=== PATIENT | female | born 1980 | race Caucasian/White ===

== ENCOUNTER 2023-12-11 15:12 | Emergency (ER) | payer SELFPAY ==
[2023-12-11 15:16] VITALS: BP 116/81; PULSE 77; RESP 16; TEMP 36.7; O2SAT 100; BMI 32.9
--- NOTE | 2023-12-11 15:36 | ED_ITS ---
Documented by User: Nael Foley DO 12/12/23 06:06 HPI - Recheck/Abnormal Lab/Rx 2 General: Chief Complaint: Recheck/Abnormal Lab/Rx Stated Complaint: high blood sugar 544 Time Seen by Provider: 12/11/23 15:36 History of Present Illness: 43-year-old female presents emergency ro om with elevated blood sugars. Patient has known type 1 diabetes mellitus she is staying at a local drug [facility] alcohol rehab. Patient says her blood sugars were elevated last several days. She usually uses sliding scale but states it has not been very effective Related Data Allergies Allergy/AdvReac Type Severity Reaction Status Date / Time aripiprazole [From Abilify] Allergy ADR/ALGY-Pa Verified 12/11/23 15:22 lpitations butorphanol [From Stadol] Allergy ADR/ALGY-Pa Verified 12/11/23 15:23 lpitations prednisone Allergy Unknown Verified 12/11/23 15:23 Review of Systems 2 Const: Denies: fever(s) or chills Card: Denies: chest pain Resp: Denies: dyspnea GI: Denies: abdominal pain : Denies: dysuria, urinary frequency or urinary urgency Musc: Denies: neck pain or back pain Skin/Breast: Denies: rash PFSH ED 2 PFSH: Medical History (Updated 12/11/23 @ 18:02 by Pedro Self DO) Diabetes mellitus Physical Exam 2 Const: GENERAL APPEARANCE: cooperative ORIENTATION/CONSCIOUSNESS: Yes awake, Yes oriented to person, Yes oriented to place and Yes oriented to time HENMT: COMMON NORMALS: normocephalic, atraumatic and hearing grossly normal bilaterally HEAD & SCALP: normocephalic and atraumatic Resp: COMMON NORMALS: normal respiratory effort, No retractions, No use of accessory muscles and clear to auscultation bilaterally AUSCULTATION: clear to auscultation bilaterally Cardio: COMMON NORMALS: regular rate, regular rhythm and No murmurs present (Cardio) RATE: regular rate RHYTHM: regular rhythm GI: COMMON NORMALS: Soft to palpation and No hepatosplenomegaly present A USCULTATION: Yes normoactive bowel sounds PALPATION: Yes Soft to palpation, No Tenderness to palpation present (GI), No Guarding due to palpation present (GI) and Yes No hepatosplenomegaly present Extremity: COMMON NORMALS: normal to inspection, capillary refill normal, no clubbing, cyanosis or edema, no calf tenderness and no pedal edema Neuro: SENSORIUM/ORIENTATION: Yes oriented to person, Yes oriented to place and Yes oriented to time Skin: COMMON NORMALS: no rashes or lesions noted GENERAL SKIN EXAM: no rashes or lesions noted Course 2 Vital Signs: Vital signs: Vital Signs Temperature 98.1 F 12/11/23 15:16 Pulse Rate 73 12/11/23 18:00 Respiratory Rate 16 12/11/23 15:16 Blood Pressure 105/66 12/11/23 18:00 Pulse Oximetry 100 12/11/23 18:00 MDM - Recheck/Abnormal Lab/Rx Medical Decision Making Care signed out to Dr. Self at change of shift. See final notes for diagnosis and disposition. Patient checked out at shift change. Ketones are negative. Original blood sugar was 544. Pseudohyponatremia present, although it corrects. CBC is not remarkable. Anion gap is normal at 16.5. She feels improved. Blood sugars down the 150s after IV insulin and fluids. Her Dexcom does not seem to be reading appropriately. 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 She is prescribed a sliding scale to give exact parameters for insulin usage. She will return for any problems. Medical Records I reviewed the patient's medical records. Lab Data I reviewed the patient's lab results. 12/11/23 15:43 12/11/23 15:43 Laboratory Results WBC 7.30 10^3/uL (3.29-11.43) 12/11/23 15:43 RBC 3.93 10^6/uL (3.85-5.65) 12/11/23 15:43 Hgb 11.60 g/dL (11.27-16.99) 12/11/23 15:43 Hct 35.6 % (36-47) L 12/11/23 15:43 MCV 90.6 fl (85-98) 12/11/23 15:43 MCH 29.5 pg (27-33) 12/11/23 15:43 MCHC 32.6 g/dL (30-55) 12/11/23 15:43 RDW 13.6 % (12.1-15.1) 12/11/23 15:43 Plt Count 344 10^3/cmm (157-399) 12/11/23 15:43 MPV 8.7 fL (7.4-10.4) 12/11/23 15:43 Neut % (Auto) 54.0 % 12/11/23 15:43 Lymph % (Auto) 34.2 % 12/11/23 15:43 [place] % (Auto) 7.3 % 12/11/23 15:43 Eos % (Auto) 3.2 % 12/11/23 15:43 Baso % (Auto) 1.0 % 12/11/23 15:43 Neut # (Auto) 3.95 10^3/uL (1.8-7.7) 12/11/23 15:43 Lymph # (Auto) 2.5 10^3/uL (0.8-4.8) 12/11/23 15:43 [place] # (Auto) 0.5 10^3/uL (0.2-0.9) 12/11/23 15:43 Eos # (Auto) 0.2 10^3/uL (0.0-0.8) 12/11/23 15:43 Baso # (Auto) 0.1 10^3/uL (0.0-0.1) 12/11/23 15:43 Nucleated RBC % (auto) 0 % 12/11/23 15:43 Nucleated RBCs # 0.0 /100WBC 12/11/23 15:43 Specimen Type Venous 12/11/23 16:04 Sample Site Radial, left 12/11/23 16:04 ABG pH 7.32 (7.35-7.45) L 12/11/23 16:04 ABG pCO2 49.0 mmHg (35-45) H 12/11/23 16:04 ABG pO2 43.5 mmHg (80.0-100.0) L 12/11/23 16:04 ABG PO2/FiO2 Ratio 207 12/11/23 16:04 ABG HCO3 25.5 mmol/L (22-26) 12/11/23 16:04 ABG O2 Saturation 75.7 12/11/23 16:04 ABG Base Excess -1.0 mmol/L (-2.0-2.0) 12/11/23 16:04 Gilberto Test Pos 12/11/23 16:04 A-a O2 Gradient 6.1 mmHg (5-10) 12/11/23 16:04 Hematocrit 37.6 % (37-47) 12/11/23 16:04 Hgb O2 Saturation 73.6 % (95-100) L 12/11/23 16:04 Carboxyhemoglobin 2.2 %THgb (0.4-20.1) 12/11/23 16:04 Methemoglobin 0.6 % (0.4-1.5) 12/11/23 16:04 Total Hemoglobin 12.3 g/dL (12-16) 12/11/23 16:04 Sodium 133.0 mmol/L (131-143) 12/11/23 16:04 Potassium 4.4 mmol/L (3.5-5.0) 12/11/23 16:04 Glucose 501.0 mg/dL (70-115) H 12/11/23 16:04 Ionized Calcium 1.2 mmol/L (1.1-1.4) 12/11/23 16:04 O2 Delivery Device Room air 12/11/23 16:04 FiO2 21.0 % 12/11/23 16:04 Kiln Labourer ID Amh 12/11/23 16:04 Sodium 129 mmol/L (136-145) L 12/11/23 15:43 Potassium 4.5 mmol/L (3.5-5.1) 12/11/23 15:43 Chloride 93 mmol/L (98-107) L 12/11/23 15:43 Carbon Dioxide 24 mmol/L (22-29) 12/11/23 15:43 Anion Gap 16.5 (5-19) 12/11/23 15:43 BUN 28 mg/dL (6-20) H 12/11/23 15:43 Creatinine 0.8 mg/dL (0.5-0.9) 12/11/23 15:43 GFR Calculation 79.0 mL/min (90-130) L 12/11/23 15:43 Glucose 544 mg/dL (65-115) H* 12/11/23 15:43 POC Glucose 156 mg/dL (70-110) H 12/11/23 17:52 Calculated Osmolality 298 mOsm/kg (285-295) H 12/11/23 15:43 Calcium 8.5 mg/dL (8.5-10.5) 12/11/23 15:43 Total Bilirubin 0.2 mg/dL (0.15-1.2) 12/11/23 15:43 AST 13 U/L (0-32) 12/11/23 15:43 ALT 16 U/L (0-33) 12/11/23 15:43 Alkaline Phosphatase 107 U/L (35-105) H 12/11/23 15:43 Total Protein 7.1 g/dL (6.6-8.7) 12/11/23 15:43 Albumin 4.0 g/dL (3.5-5.2) 12/11/23 15:43 Globulin 3.1 g/dL (1.3-4.6) 12/11/23 15:43 Urine Color Yellow (Yellow) 12/11/23 15:30 Urine Appearance Clear (CLEAR) 12/11/23 15:30 Urine pH 6.0 (5-7) 12/11/23 15:30 Ur Specific [place] 1.016 (1.005-1.030) 12/11/23 15:30 Urine Protein Negative (Negative) 12/11/23 15:30 Urine Glucose (UA) 3+ (Normal) H 12/11/23 15:30 Urine Ketones Negative (Negative) 12/11/23 15:30 Urine Blood Negative (Negative) 12/11/23 15:30 Urine Nitrate Negative (Negative) 12/11/23 15:30 Urine Bilirubin Negative (Negative) 12/11/23 15:30 Urine Urobilinogen 0.2 mg/dL (Negative) 12/11/23 15:30 Ur Leukocyte Esterase Negative (Negative) 12/11/23 15:30 Urine RBC 0-2 /hpf (0-2) 12/11/23 15:30 Urine WBC 0-5 /hpf (0-5) 12/11/23 15:30 Ur Squamous Epith Cells 0-5 /hpf (0-5) 12/11/23 15:30 Amorphous Sediment Not Reportable 12/11/23 15:30 Urine Bacteria None seen /hpf (NONE) 12/11/23 15:30 Hyaline Casts 0-4 /lpf H 12/11/23 15:30 Serum Ketones Negative (Negative) 12/11/23 15:43 Discharge Plan Discharge Patient Disposition: Home Clinical Impression: Acute hyperglycemia Condition: Stable Discharge Orders: Discharge ED (Routine); Ordered 12/11/23 Ordered By: Pedro Self Patient Instructions: Diabetic Hyperglycemia (ED), Opioid Safety, Pain Management Activity Restrictions/Additional Instructions: You have been given/prescribed a specific sliding scale for insulin usage. This should help control your blood sugar more accurately. Use your test strips and fingersticks, until you are able to refill your Dexcom, and can assure yourself that your Dexcom and fingersticks are lining up in terms of blood sugar parameters. Return for inability control blood sugar, vomiting, lethargy, trouble breathing, any other concerning symptoms. Coding Level of Care Code ED Loom Fixer Supervisor for Chg Fwd Documented by User: Pedro Self DO 12/11/23 21:03 HPI - Recheck/Abnormal Lab/Rx 2 General: Chief Complaint: Recheck/Abnormal Lab/Rx Stated Complaint: high blood sugar 544 Time Seen by Provider: 12/11/23 15:36 Related Data Allergies Allergy/AdvReac Type Severity Reaction Status Date / Time aripiprazole [From Abilify] Allergy ADR/ALGY-Pa Verified 12/11/23 15:22 lpitations butorphanol [From Stadol] Allergy ADR/ALGY-Pa Verified 12/11/23 15:23 lpitations prednisone Allergy Unknown Verified 12/11/23 15:23 [facility] ED 2 [facility]: Medical History (Updated 12/11/23 @ 18:02 by Pedro Self DO) Diabetes mellitus Course 2 Vital Signs: Vital signs: Vital Signs Temperature 98.1 F 12/11/23 15:16 Pulse Rate 73 12/11/23 18:00 Respiratory Rate 16 12/11/23 15:16 Blood Pressure 105/66 12/11/23 18:00 Pulse Oximetry 100 12/11/23 18:00 MDM - Recheck/Abnormal Lab/Rx Medical Decision Making Patient checked out at shift change. Ketones are negative. Original blood sugar was 544. Pseudohyponatremia present, although it corrects. CBC is not remarkable. Anion gap is normal at 16.5. She feels improved. Blood sugars down the 150s after IV insulin and fluids. Her Dexcom does not seem to be reading appropriately. 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 She is prescribed a sliding scale to give exact parameters for insulin usage. She will return for any problems. Lab Data 12/11/23 15:43 12/11/23 15:43 Laboratory Results WBC 7.30 10^3/uL (3.29-11.43) 12/11/23 15:43 RBC 3.93 10^6/uL (3.85-5.65) 12/11/23 15:43 Hgb 11.60 g/dL (11.27-16.99) 12/11/23 15:43 Hct 35.6 % (36-47) L 12/11/23 15:43 MCV 90.6 fl (85-98) 12/11/23 15:43 MCH 29.5 pg (27-33) 12/11/23 15:43 MCHC 32.6 g/dL (30-55) 12/11/23 15:43 RDW 13.6 % (12.1-15.1) 12/11/23 15:43 Plt Count 344 10^3/cmm (157-399) 12/11/23 15:43 MPV 8.7 fL (7.4-10.4) 12/11/23 15:43 Neut % (Auto) 54.0 % 12/11/23 15:43 Lymph % (Auto) 34.2 % 12/11/23 15:43 [place] % (Auto) 7.3 % 12/11/23 15:43 Eos % (Auto) 3.2 % 12/11/23 15:43 Baso % (Auto) 1.0 % 12/11/23 15:43 Neut # (Auto) 3.95 10^3/uL (1.8-7.7) 12/11/23 15:43 Lymph # (Auto) 2.5 10^3/uL (0.8-4.8) 12/11/23 15:43 [place] # (Auto) 0.5 10^3/uL (0.2-0.9) 12/11/23 15:43 Eos # (Auto) 0.2 10^3/uL (0.0-0.8) 12/11/23 15:43 Baso # (Auto) 0.1 10^3/uL (0.0-0.1) 12/11/23 15:43 Nucleated RBC % (auto) 0 % 12/11/23 15:43 Nucleated RBCs # 0.0 /100WBC 12/11/23 15:43 Specimen Type Venous 12/11/23 16:04 Sample Site Radial, left 12/11/23 16:04 ABG pH 7.32 (7.35-7.45) L 12/11/23 16:04 ABG pCO2 49.0 mmHg (35-45) H 12/11/23 16:04 ABG pO2 43.5 mmHg (80.0-100.0) L 12/11/23 16:04 ABG PO2/FiO2 Ratio 207 12/11/23 16:04 ABG HCO3 25.5 mmol/L (22-26) 12/11/23 16:04 ABG O2 Saturation 75.7 12/11/23 16:04 ABG Base Excess -1.0 mmol/L (-2.0-2.0) 12/11/23 16:04 Gilberto Test Pos 12/11/23 16:04 A-a O2 Gradient 6.1 mmHg (5-10) 12/11/23 16:04 Hematocrit 37.6 % (37-47) 12/11/23 16:04 Hgb O2 Saturation 73.6 % (95-100) L 12/11/23 16:04 Carboxyhemoglobin 2.2 %THgb (0.4-20.1) 12/11/23 16:04 Methemoglobin 0.6 % (0.4-1.5) 12/11/23 16:04 Total Hemoglobin 12.3 g/dL (12-16) 12/11/23 16:04 Sodium 133.0 mmol/L (131-143) 12/11/23 16:04 Potassium 4.4 mmol/L (3.5-5.0) 12/11/23 16:04 Glucose 501.0 mg/dL (70-115) H 12/11/23 16:04 Ionized Calcium 1.2 mmol/L (1.1-1.4) 12/11/23 16:04 O2 Delivery Device Room air 12/11/23 16:04 FiO2 21.0 % 12/11/23 16:04 Kiln Labourer ID Amh 12/11/23 16:04 Sodium 129 mmol/L (136-145) L 12/11/23 15:43 Potassium 4.5 mmol/L (3.5-5.1) 12/11/23 15:43 Chloride 93 mmol/L (98-107) L 12/11/23 15:43 Carbon Dioxide 24 mmol/L (22-29) 12/11/23 15:43 Anion Gap 16.5 (5-19) 12/11/23 15:43 BUN 28 mg/dL (6-20) H 12/11/23 15:43 Creatinine 0.8 mg/dL (0.5-0.9) 12/11/23 15:43 GFR Calculation 79.0 mL/min (90-130) L 12/11/23 15:43 Glucose 544 mg/dL (65-115) H* 12/11/23 15:43 POC Glucose 156 mg/dL (70-110) H 12/11/23 17:52 Calculated Osmolality 298 mOsm/kg (285-295) H 12/11/23 15:43 Calcium 8.5 mg/dL (8.5-10.5) 12/11/23 15:43 Total Bilirubin 0.2 mg/dL (0.15-1.2) 12/11/23 15:43 AST 13 U/L (0-32) 12/11/23 15:43 ALT 16 U/L (0-33) 12/11/23 15:43 Alkaline Phosphatase 107 U/L (35-105) H 12/11/23 15:43 Total Protein 7.1 g/dL (6.6-8.7) 12/11/23 15:43 Albumin 4.0 g/dL (3.5-5.2) 12/11/23 15:43 Globulin 3.1 g/dL (1.3-4.6) 12/11/23 15:43 Urine Color Yellow (Yellow) 12/11/23 15:30 Urine Appearance Clear (CLEAR) 12/11/23 15:30 Urine pH 6.0 (5-7) 12/11/23 15:30 Ur Specific [place] 1.016 (1.005-1.030) 12/11/23 15:30 Urine Protein Negative (Negative) 12/11/23 15:30 Urine Glucose (UA) 3+ (Normal) H 12/11/23 15:30 Urine Ketones Negative (Negative) 12/11/23 15:30 Urine Blood Negative (Negative) 12/11/23 15:30 Urine Nitrate Negative (Negative) 12/11/23 15:30 Urine Bilirubin Negative (Negative) 12/11/23 15:30 Urine Urobilinogen 0.2 mg/dL (Negative) 12/11/23 15:30 Ur Leukocyte Esterase Negative (Negative) 12/11/23 15:30 Urine RBC 0-2 /hpf (0-2) 12/11/23 15:30 Urine WBC 0-5 /hpf (0-5) 12/11/23 15:30 Ur Squamous Epith Cells 0-5 /hpf (0-5) 12/11/23 15:30 Amorphous Sediment Not Reportable 12/11/23 15:30 Urine Bacteria None seen /hpf (NONE) 12/11/23 15:30 Hyaline Casts 0-4 /lpf H 12/11/23 15:30 Serum Ketones Negative (Negative) 12/11/23 15:43 No radiology studies performed this visit Discharge Plan Discharge Patient Disposition: Home Clinical Impression: Acute hyperglycemia Condition: Stable Discharge Orders: Discharge ED (Routine); Ordered 12/11/23 Ordered By: Pedro Self Patient Instructions: Diabetic Hyperglycemia (ED), Opioid Safety, Pain Management Activity Restrictions/Additional Instructions: You have been given/prescribed a specific sliding scale for insulin usage. This should help control your blood sugar more accurately. Use your test strips and fingersticks, until you are able to refill your Dexcom, and can assure yourself that your Dexcom and fingersticks are lining up in terms of blood sugar parameters. Return for inability control blood sugar, vomiting, lethargy, trouble breathing, any other concerning symptoms. Coding Level of Care Code ED Loom Fixer Supervisor for Win Umana
[2023-12-11 15:49] LABS: Basophils # 0.1 10^3/uL (0.0-0.1); Eosinophils # 0.2 10^3/uL (0.0-0.8); Eosinophils % 3.2 %; Hematocrit 35.6 % (36-47); Lymphocytes # 2.5 10^3/uL (0.8-4.8); Lymphocytes % 34.2 %; Mean Corpuscular HGB Conc 32.6 g/dL (30-55); Mean Corpuscular Hemoglobin 29.5 pg (27-33); Mean Corpuscular Volume 90.6 fl (85-98); Mean Platelet Volume 8.7 fL (7.4-10.4); Monocytes # 0.5 10^3/uL (0.2-0.9); Monocytes % 7.3 %; Neutrophils # 3.95 10^3/uL (1.8-7.7); Nucleated Red Blood Cells % 0 %; Platelet Count 344 10^3/cmm (157-399); Red Blood Count 3.93 10^6/uL (3.85-5.65); Red Cell Distribution Width 13.6 % (12.1-15.1)
[2023-12-11 15:51] LABS: Charge for UA Resulting for Rev
[2023-12-11 15:53] LABS: Bilirubin Urine Negative (Negative); Blood Urine Negative (Negative); Glucose Urine UA 3+ (Normal); Ketones Urine Negative (Negative); Leukocyte Esterase Urine Negative (Negative); Nitrate Urine Negative (Negative); Protein Urine Negative (Negative); Specific Gravity, Urine 1.016 (1.005-1.030); Urine Appearance Clear (CLEAR); Urine Color Yellow (Yellow); Urobilinogen Urine 0.2 mg/dL (Negative)
[2023-12-11 15:58] LABS: Bacteria Urine None Seen /hpf; Hyaline Casts Urine 0-4 /lpf; RBC Urine 0-2 /hpf (0-2); Squamous Epithelial Cell Urine 0-5 /hpf (0-5); WBC Urine 0-5 /hpf (0-5)
[2023-12-11 16:00] LABS: Ketone (Acetest) Serum Negative (Negative)
[2023-12-11 16:06] LABS: Alanine Aminotransferase 16 U/L (0-33); Alkaline Phosphatase 107 U/L (35-105); Anion Gap 16.5 (5-19); Aspartate Amino Transferase 13 U/L (0-32); Blood Urea Nitrogen 28 mg/dL (6-20); Calcium 8.5 mg/dL (8.5-10.5); Carbon Dioxide 24 mmol/L (22-29); Chloride 93 mmol/L (98-107); Creatinine Clr Calc Pharmacy 102.4474; Globulin 3.1 g/dL (1.3-4.6); Osmolality Calculated 298 mOsm/kg (285-295); Potassium 4.5 mmol/L (3.5-5.1); Sodium 129 mmol/L (136-145); Total Bilirubin 0.2 mg/dL (0.15-1.2); Total Protein 7.1 g/dL (6.6-8.7)
[2023-12-11 16:11] LABS: Glucose 544 mg/dL (65-115)
[2023-12-11 16:16] LABS: ABG PH Result 7.32 (7.35-7.45); Alveolar-Arterial Oxygen Gradi 6.1 mmHg (5-10); Arterial Blood Gas Hematocrit 37.6 % (37-47); Blood Gas Allen Test Pos; Blood Gas Operator Identificat AMH; Blood Gas Sample Site Radial, left; Blood Gas Sample Type Venous; Carboxyhemoglobin 2.2 %THgb (0.4-20.1); HCO3 ABG 25.5 mmol/L (22-26); HGB O2 Sat 73.6 % (95-100); Ionized Calcium Level - ABG 1.2 mmol/L (1.1-1.4); Methemoglobin 0.6 % (0.4-1.5); Oxygen Device ROOM AIR; Oxygen Saturation ABG 75.7; PO2 ABG 43.5 mmHg (80.0-100.0); PO2 FiO2 Ratio Arterial Blood 207; Potassium Level - ABG 4.4 mmol/L (3.5-5.0); Total Hemoglobin 12.3 g/dL (12-16)
[2023-12-11 16:18] LABS: Glucose Point of Care 521 mg/dL (70-110)
[2023-12-11] MEDS: insulin regular-human 100 units/1 mL 10 UNIT IVP (16:18)
[2023-12-11] MEDS: sodium chloride 0.9% 1,000 ML 999 ML IV (16:19)
[2023-12-11 16:51] VITALS: BP 117/90; PULSE 82; O2SAT 97
[2023-12-11 17:08] LABS: Glucose Point of Care 230 mg/dL (70-110)
--- NOTE | 2023-12-11 17:12 | PC.NURSE ---
Glucose via fingerstick 230, Glucose via pt Dexcom 150 @1700
[2023-12-11 17:35] LABS: Glucose Point of Care 160 mg/dL (70-110)
[2023-12-11 17:37] VITALS: BP 128/88
[2023-12-11 17:56] LABS: Glucose Point of Care 156 mg/dL (70-110)
[2023-12-11 18:00] VITALS: BP 105/66; PULSE 73; O2SAT 100
== END 2023-12-11 19:30 | disposition home or self-care (01) ==
PROVIDERS: Family Medicine; Emergency Provider Emergency Medicine
DX: E10.65 Type 1 diabetes mellitus with hyperglycemia (principal)
CPT/HCPCS: 36416; 36600; 80051; 80053; 81003; 81015; 82009; 82330; 82805; 82962; 85025; 96374; 99285; J1815; J7030

== ENCOUNTER 2024-04-01 17:07 | Inpatient (IN) | payer BC, MEDICAID, SELFPAY ==
[2024-04-01 17:08] VITALS: BP 114/73; PULSE 77; RESP 17; TEMP 36.7; O2SAT 96; BMI 31.6
--- NOTE | 2024-04-01 17:08 | ECG_ITS ---
[facility] Pat Name: Andreea Clemente Department: Room: 131 Gender: Female Clothes Presser: : 1980 Requested By: Tara Russo Order Number: [id number] Mirza MD: Crystal Salinas M.D. Measurements Intervals [place] Rate: 67 P: 74 [place]: 155 QRS: 95 QRSD: 104 T: 55 QT: 403 QTc: 428 Interpretive Statements SINUS RHYTHM BORDERLINE RIGHT AXIS DEVIATION [QRS AXIS > 90] No previous ECG available for comparison Electronically Signed On 04-02-2024 22:34:40 PAPER LATCHER by Crystal Salinas M.D. [id number]
--- NOTE | 2024-04-01 17:38 | W.ED.PSYCHS ---
HPI - Psych General: Chief Complaint: Psychiatric Symptoms Stated Complaint: MHE, SI Time Seen by Provider: 04/01/24 17:08 History of Present Illness: 43-year-old female with a history of type 1 diabetes, depression and PTSD who presents emergency room with suicidal thoughts. She says with the holidays coming up she has been having worsening worsening depressive thoughts. And now she started to have suicidal thoughts. She is hoping to get inpatient help. 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 Skin symptoms: Negative except as documented in HPI. Eye symptoms: Negative except as documented in HPI. ENMT symptoms: Negative except as documented in HPI. Respiratory symptoms: Negative except as documented in HPI. Cardiovascular symptoms: Negative except as documented in HPI. Gastrointestinal symptoms: Negative except as documented in HPI. Genitourinary symptoms: Negative except as documented in HPI. Musculoskeletal symptoms: Negative except as documented in HPI. Neurologic symptoms: Negative except as documented in HPI. Psychiatric symptoms: Negative except as documented in HPI. Endocrine symptoms: Negative except as documented in HPI. [facility] ED PFSH: Medical History (Updated 04/01/24 @ 19:17 by Tara Aguero MD) Diabetes mellitus Physical Exam Narrative: EXAM NARRATIVE: General: Alert. no acute distress Skin: Warm, dry Head: Normocephalic, atraumatic. Neck: Supple, trachea midline. Eye: Extraocular movements are intact. Ears, nose, mouth and throat: Oral mucosa moist. Cardiovascular: Regular rate and rhythm, Normal peripheral perfusion. Respiratory: Lungs are clear to auscultation, respirations are non-labored, breath sounds are equal, Symmetrical chest wall expansion. Gastrointestinal: Soft, Nontender, Non distended, Normal bowel sounds. Musculoskeletal: Normal ROM, no deformity. Neurological: Alert and oriented to person, place, time, and situation, No focal neurological deficit observed. Psychiatric: Cooperative, depressed, expresses suicidal ideation. Course Vital Signs: Vital signs: Vital Signs Temperature 98.0 F 04/01/24 17:08 Pulse Rate 77 04/01/24 17:08 Respiratory Rate 17 04/01/24 17:08 Blood Pressure 114/73 04/01/24 17:08 Pulse Oximetry 96 04/01/24 17:08 Oxygen Delivery Me thod Room Air 04/01/24 17:08 MDM - Psych Medical Decision Making Differential diagnosis: Patient with reported depression and suicidal ideation. concerns for infection, alcohol intoxication, cardiac issues or other medical problems prior to psychiatric admission. Workup: labwork, ekg ordered to evaluate the pathologies and to clear the patient medically prior to psychiatric admission Lab Review: Laboratory results were reviewed and interpreted by myself the emergency room physician. - Medically cleared. - EKG shows no ischemic changes. - Blood alcohol level is negative, -Tylenol and salicylate levels are negative. -Urinalysis and drug screen are pending. - No anemia. - BUN and creatinine are within normal limits. Consultation: I spoke with Dr. Velazquez who agrees to admission to the Neuropsych Unit. Assessment and plan: Suicidal ideation Depression Type 1 diabetes mellitus -Admission to neuropsychiatric unit for continued evaluation and treatment. - All lab work was reviewed and interpreted personally by myself, the ER physician - Evaluation and treatment of this problem were appropriate in the emergency setting Lab Data 04/01/24 17:37 04/01/24 17:37 Laboratory Results WBC 8.50 10^3/uL (3.29-11.43) 04/01/24 17:37 RBC 4.14 10^6/uL (3.85-5.65) 04/01/24 17:37 Hgb 12.20 g/dL (11.27-16.99) 04/01/24 17:37 Hct 37.2 % (36-47) 04/01/24 17:37 MCV 89.9 fl (85-98) 04/01/24 17:37 MCH 29.5 pg (27-33) 04/01/24 17:37 MCHC 32.8 g/dL (30-55) 04/01/24 17:37 RDW 15.3 % (12.1-15.1) H 04/01/24 17:37 Plt Count 318 10^3/cmm (157-399) 04/01/24 17:37 MPV 8.9 fL (7.4-10.4) 04/01/24 17:37 Neut % (Auto) 65.2 % 04/01/24 17:37 Lymph % (Auto) 23.4 % 04/01/24 17:37 [place] % (Auto) 6.8 % 04/01/24 17:37 Eos % (Auto) 3.4 % 04/01/24 17:37 Baso % (Auto) 1.1 % 04/01/24 17:37 Neut # (Auto) 5.54 10^3/uL (1.8-7.7) 04/01/24 17:37 Lymph # (Auto) 2.0 10^3/uL (0.8-4.8) 04/01/24 17:37 [place] # (Auto) 0.6 10^3/uL (0.2-0.9) 04/01/24 17:37 Eos # (Auto) 0.3 10^3/uL (0.0-0.8) 04/01/24 17:37 Baso # (Auto) 0.1 10^3/uL (0.0-0.1) 04/01/24 17:37 Nucleated RBC % (auto) 0 % 04/01/24 17:37 Nucleated RBCs # 0.0 /100WBC 04/01/24 17:37 Sodium 137 mmol/L (136-145) 04/01/24 17:37 Potassium 3.9 mmol/L (3.5-5.1) 04/01/24 17:37 Chloride 104 mmol/L (98-107) 04/01/24 17:37 Carbon Dioxide 21 mmol/L (22-29) L 04/01/24 17:37 Anion Gap 15.9 (5-19) 04/01/24 17:37 BUN 17 mg/dL (6-20) 04/01/24 17:37 Creatinine 0.7 mg/dL (0.5-0.9) 04/01/24 17:37 GFR Calculation 92.2 mL/min (90-130) 04/01/24 17:37 Glucose 180 mg/dL (65-115) H 04/01/24 17:37 Calculated Osmolality 290 mOsm/kg (285-295) 04/01/24 17:37 Calcium 8.7 mg/dL (8.5-10.5) 04/01/24 17:37 Total Bilirubin 0.2 mg/dL (0.15-1.2) 04/01/24 17:37 AST 19 U/L (0-32) 04/01/24 17:37 ALT 16 U/L (0-33) 04/01/24 17:37 Alkaline Phosphatase 110 U/L (35-105) H 04/01/24 17:37 Total Protein 6.8 g/dL (6.6-8.7) 04/01/24 17:37 Albumin 3.9 g/dL (3.5-5.2) 04/01/24 17:37 Globulin 2.9 g/dL (1.3-4.6) 04/01/24 17:37 TSH 1.51 uIU/mL (0.27-4.20) 04/01/24 17:37 HCG, Qual Negative (Negative) 04/01/24 17:30 Amorphous Sediment Not Reportable 04/01/24 17:30 Salicylates 0.4 mg/dL (3-10) L 04/01/24 17:37 Acetaminophen < 5.0 ug/mL (10-30) L 04/01/24 17:37 Ethyl Alcohol < 10 mg/dL (0-10) 04/01/24 17:37 No radiology studies performed this visit Discharge Plan Discharge Patient Disposition: Admitted As Inpatient Clinical Impression: Suicidal ideation, Depression, Type 1 diabetes mellitus Condition: Stable Coding Level of Care Code ED Asphalt Distributor Operator for Win Umana
[2024-04-01 17:44] LABS: Basophils # 0.1 10^3/uL (0.0-0.1); Basophils % 1.1 %; Eosinophils # 0.3 10^3/uL (0.0-0.8); Eosinophils % 3.4 %; Hematocrit 37.2 % (36-47); Lymphocytes % 23.4 %; Mean Corpuscular HGB Conc 32.8 g/dL (30-55); Mean Corpuscular Hemoglobin 29.5 pg (27-33); Mean Corpuscular Volume 89.9 fl (85-98); Mean Platelet Volume 8.9 fL (7.4-10.4); Monocytes # 0.6 10^3/uL (0.2-0.9); Monocytes % 6.8 %; Neutrophils # 5.54 10^3/uL (1.8-7.7); Neutrophils % 65.2 %; Nucleated Red Blood Cells % 0 %; Platelet Count 318 10^3/cmm (157-399); Red Blood Count 4.14 10^6/uL (3.85-5.65); Red Cell Distribution Width 15.3 % (12.1-15.1)
[2024-04-01 17:50] LABS: HCG Qualitative Urine. Negative (Negative)
[2024-04-01 18:16] LABS: Alanine Aminotransferase 16 U/L (0-33); Albumin Level 3.9 g/dL (3.5-5.2); Alkaline Phosphatase 110 U/L (35-105); Anion Gap 15.9 (5-19); Aspartate Amino Transferase 19 U/L (0-32); Blood Urea Nitrogen 17 mg/dL (6-20); Calcium 8.7 mg/dL (8.5-10.5); Carbon Dioxide 21 mmol/L (22-29); Chloride 104 mmol/L (98-107); Creatinine Clr Calc Pharmacy 114.6597; Globulin 2.9 g/dL (1.3-4.6); Glomerular Filtration Rate 92.2 mL/min (90-130); Glucose 180 mg/dL (65-115); Osmolality Calculated 290 mOsm/kg (285-295); Potassium 3.9 mmol/L (3.5-5.1); Salicylate 0.4 mg/dL (3-10); Sodium 137 mmol/L (136-145); Thyroid Stimulating Hormone 1.51 uIU/mL (0.27-4.20); Total Bilirubin 0.2 mg/dL (0.15-1.2); Total Protein 6.8 g/dL (6.6-8.7)
[2024-04-01 18:21] LABS: Acetaminophen < 5.0 ug/mL (10-30); Alcohol Level < 10 mg/dL (0-10)
--- NOTE | 2024-04-01 18:47 | PC.NURSE ---
96 hour HOLD RIGHTS READ TO PT WITH SECURITY PRESENT. ALL QUESTIONS ANSWERED. PT STATES SHE IS HAPPY TO STAY AND IS NEEDING HELP. SUPPORT VOICED.
[2024-04-01 19:19] LABS: Bilirubin Urine Negative (Negative); Blood Urine Negative (Negative); Glucose Urine UA Trace (Normal); Ketones Urine Negative (Negative); Leukocyte Esterase Urine Trace (Negative); Nitrate Urine Negative (Negative); Protein Urine Negative (Negative); Specific Gravity, Urine 1.027 (1.005-1.030); Urine Appearance Clear (CLEAR); Urine Color Yellow (Yellow); Urobilinogen Urine 0.2 mg/dL (Negative)
[2024-04-01 19:22] LABS: Bacteria Urine Trace /hpf; Hyaline Casts Urine 1.65 /lpf; RBC Urine 0-2 /hpf (0-2); Squamous Epithelial Cell Urine 0-5 /hpf (0-5)
[2024-04-01 19:27] LABS: Amphetamines Screen Urine Negative (Negative); Barbiturates Screen Urine Negative (Negative); Benzodiazepines Screen Urine Negative (Negative); Cocaine Screen Urine Negative (Negative); Opiate Screen Urine Negative (Negative); PCP Screen Urine Negative (Negative); THC Screen Urine Positive (Negative)
[2024-04-01 20:21] LABS: Covid PCR NEGATIVE (Negative); Influenza A NEGATIVE (Negative); Influenza B NEGATIVE (Negative); Respiratory Syncytial Virus Ce NEGATIVE (Negative)
[2024-04-01 21:59] LABS: Glucose Point of Care 100 mg/dL (70-110)
[2024-04-01 22:04] VITALS: BP 127/90; PULSE 71; RESP 18; TEMP 36.9; O2SAT 99
[2024-04-01] MEDS: prazosin 1 mg Capsule 2 MG PO (23:18)
[2024-04-01] MEDS: topiramate 100 mg Tablet PO (23:18)
[2024-04-01] MEDS: OLANZapine 10 mg TABLET 20 MG PO (23:18)
[2024-04-01] MEDS: hyDROXYzine 25 mg Capsule 50 MG PO (23:21)
[2024-04-01] MEDS: trazodone 50 mg Tablet PO (23:21)
[2024-04-01] MEDS: acetaminophen 325 mg Tablet 650 MG PO (23:25)
[2024-04-02 06:00] VITALS: BP 115/80; PULSE 72; RESP 17; O2SAT 98
[2024-04-02 07:14] LABS: Glucose Point of Care 161 mg/dL (70-110)
[2024-04-02] MEDS: nicotine 21 mg Patch 1 PATCH TRANSDERMA (08:09)
[2024-04-02] MEDS: acetaminophen 325 mg Tablet 650 MG PO ×2 (08:09→13:56)
[2024-04-02] MEDS: buPROPion XL (24 HR) 300 mg Tablet PO (08:10)
[2024-04-02] MEDS: insulin lispro 100 unit/1 mL 18 UNIT SUBCUT ×2 (08:10→12:00)
[2024-04-02] MEDS: propranolol 20 mg Tablet PO ×3 (08:10→21:01)
[2024-04-02] MEDS: pantoprazole DR 40 mg Tablet PO (08:10)
[2024-04-02] MEDS: cetirizine 10 mg Tablet PO (08:10)
[2024-04-02] MEDS: OXcarbazepine 300 mg Tablet PO ×2 (08:10→17:50)
[2024-04-02 11:20] LABS: Glucose Point of Care 102 mg/dL (70-110)
[2024-04-02] MEDS: ibuprofen 800 mg tablet PO (11:24)
[2024-04-02] MEDS: hyDROXYzine 25 mg Capsule 50 MG PO ×2 (11:26→18:09)
[2024-04-02] MEDS: haloperidol 5 mg Tablet PO (11:32)
[2024-04-02 14:00] VITALS: BP 129/80; PULSE 62; RESP 16; TEMP 36.6; O2SAT 98
[2024-04-02] MEDS: ziprasidone hcl 20 mg Capsule PO (14:36)
[2024-04-02 15:17] LABS: Glucose Point of Care 39 mg/dL (70-110)
[2024-04-02 15:33] LABS: Glucose Point of Care 59 mg/dL (70-110)
[2024-04-02 16:12] LABS: Glucose Point of Care 154 mg/dL (70-110)
--- NOTE | 2024-04-02 16:37 | PC.NURSE ---
Hypoglycemia During round, patient stopped this nurse, stating that she felt as though her BG is low. This nurse checked BG; reading was 39. Patient was coherent and alert. This nurse gave patient a sandwich and orange juice. Patient's blood sugar increased to 59. Patient reporting that she is feeling much better. This nurse notified Dr. Benavidez about patient's BG dropping and that she hasn't been seen by a PCP in a long while. Dr. Benavidez agreeable to making some adjustments to sliding scale.
[2024-04-02 17:23] LABS: Glucose Point of Care 165 mg/dL (70-110)
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
[2024-04-02] MEDS: insulin glargine 100 units/1 mL 30 UNIT SUBCUT (17:51)
[2024-04-02] MEDS: insulin lispro 100 unit/1 mL SUBCUT ×2 (17:51→21:03)
[2024-04-02 20:37] LABS: Glucose Point of Care 336 mg/dL (70-110)
[2024-04-02] MEDS: OLANZapine 10 mg TABLET PO (21:01)
[2024-04-02] MEDS: prazosin 1 mg Capsule 4 MG PO (21:01)
[2024-04-02 22:00] VITALS: BP 139/77; PULSE 75; RESP 16; TEMP 36.7; O2SAT 99
[2024-04-03 06:00] VITALS: BP 92/54; PULSE 63; RESP 16; O2SAT 97
[2024-04-03 07:06] LABS: Glucose Point of Care 89 mg/dL (70-110)
[2024-04-03] MEDS: buPROPion XL (24 HR) 300 mg Tablet PO (08:28)
[2024-04-03] MEDS: pantoprazole DR 40 mg Tablet PO (08:28)
[2024-04-03] MEDS: acetaminophen 325 mg Tablet 650 MG PO ×3 (08:28→23:20)
[2024-04-03] MEDS: OXcarbazepine 300 mg Tablet PO ×2 (08:28→17:41)
[2024-04-03] MEDS: cetirizine 10 mg Tablet PO (08:29)
[2024-04-03] MEDS: propranolol 20 mg Tablet PO ×3 (08:29→20:30)
[2024-04-03] MEDS: haloperidol 5 mg Tablet PO ×2 (08:29→14:20)
--- NOTE | 2024-04-03 09:40 | PC.NURSE ---
Morning Assessment During morning assessment, patient reports lower back pain and admits that she is having auditory hallucinations. Patient denies visual hallucinations, stating that she thinks the haldol is helping to keep these from occurring. Patient denies suicidal thoughts or urges, homicidal thoughts, and anxiety. Patient said that she is in a deep, dark depression and that she has been feeling this way for several weeks. Patient given Tylenol for pain and 5mg Haldol for the auditory hallucinations
[2024-04-03 11:26] LABS: Glucose Point of Care 396 mg/dL (70-110)
[2024-04-03] MEDS: insulin lispro 100 unit/1 mL SUBCUT ×3 (12:16→20:30)
[2024-04-03] MEDS: hyDROXYzine 25 mg Capsule 50 MG PO (12:17)
[2024-04-03] MEDS: ibuprofen 800 mg tablet PO (12:17)
--- NOTE | 2024-04-03 12:23 | PC.NURSE ---
Vistaril Vistaril for c/o anxiety Ibuprofen for back pain 01/26
[2024-04-03] MEDS: nicotine 21 mg Patch 1 PATCH TRANSDERMA (12:50)
--- NOTE | 2024-04-03 13:10 | PC.NURSE ---
Vivitrol This nurse contacted nurse at [facility]. The last vivitrol injection that patient was on 03/14/24.
[2024-04-03 14:00] VITALS: BP 125/87; PULSE 68; RESP 16; TEMP 37.6; O2SAT 99
[2024-04-03] MEDS: triamcinolone 0.5% cream 15 gm 1 APPLIC TOPICAL (14:20)
[2024-04-03 14:34] LABS: Glucose Point of Care 319 mg/dL (70-110)
--- NOTE | 2024-04-03 16:21 | P.NPUPN_ITS ---
Subjective NPU 2 Subjective: 43-year-old female with a history of PTS D, polysubstance abuse, and depression admitted with suicidal ideation. The patient had reported that she had continued to hear voices. She had reported no improvement in the past with her hallucinations despite taking olanzapine 20 mg at night. She had stated that Haldol had been helpful in the past and requested this. She had reported struggles with managing chronic PTSD symptoms as well. She had reported having problems with sleep. She had reported frequent awakenings at night. She had requested Suboxone but stated that she had recently been given an IM Vivitrol on 03/13/2024. She had stated that she was hopeful to go to a different inpatient rehabilitation facility as she had recently relapsed and appeared to be homeless at this time. Mental Status Exam 2 MSE Comments: Patient is casually dressed, obese white female who was pleasant and cooperative on interview. Gait appeared within normal limits. Her hygiene was poor. There was no evidence of any abnormal involuntary motor movements, tics, or tremors. Her speech was normal in rate, rhythm and prosody. Thought process was linear, logical, goal-directed. Thought content showed evidence of suicidal ideation. She denied any homicidal ideation. She did not appear to be responding to internal stimuli although she reported hearing voices. There was no clear evidence of delusional thinking. Her mood was described as depressed. Her affect was restricted in range and mood congruent. He was alert and oriented to person, place, time and situation. Recent memory is intact. Her insight is poor. Judgment was poor. Impulse control was impaired as well. Vitals/I&O/Wt Last Vital Signs Temp 99.7 F H 04/03/24 14:00 Pulse 68 04/03/24 14:00 Resp 16 04/03/24 14:00 BP 125/87 04/03/24 14:00 Pulse Ox 99 04/03/24 14:00 O2 Del Method Room Air 04/03/24 14:00 Weight last 48 hrs Weight 68.084 kg Weight 86.183 kg Data NPU 04/01/24 17:37 04/01/24 17:37 A&P Assessment and plan (1) Major depressive disorder, recurrent episode, unspecified: (2) Polysubstance abuse: (3) PTSD (post-traumatic stress disorder): Plan 43-year-old female with a history of polysubstance abuse but depression and suicidal ideation currently homeless. Patient had requested adjustment of her medication regimen. #1.? Engage patient in individual milieu and group therapy. #2?? Recommend sober living treatment at the highest level of care to which the patient is willing to commit #3??? CIWA for alcohol withdrawal #4?? TO-15 minute checks? #5?? Will attempt to gather collateral information #6 Medical consult regarding diabetes , will start haldol for psychosis, continue Prazosin, trileptal. Trial of doxepin for sleep and depression. Suboxone unlikely given recent monthly use of vivitrol. Involuntary Hold Information 2 96 Hour Hold: 96 Hour Involuntary Admission: Yes 96 Hour Hold Ending Date: 04/07/24 96 Hour Hold Ending Time: 00:01 Other Hold: Hold End Date: 04/07/24 Attestations NPU 2 Medical Necessity Statement*: Inpatient hospitalization is medically necessary and deemed to ?be ?the clinically appropriate intervention ?at this time.? We will monitor/initiate medications and make changes as indicated.? The patient?s likely length of stay 7-10 days. Coding Level of Care Code Acute Code for Chg Fwd Diagnoses Major depressive disorder, recurrent episode, unspecified F33.9 Polysubstance abuse F19.10 PTSD (post-traumatic stress disorder) F43.10
--- NOTE | 2024-04-03 17:23 | P.CONIM_ITS ---
Providers/Reason For Consult 2 Consulting Physician/Specialty*: Hospitalist Reason for Consult*: Hypoglycemia, DM1 Attending Physician: Drew Velazquez MD History of Present Illness History of Present Illness Andreea Clemente is a 43 year old female with DM1 admitted to neuropsychiatric unit had a rapid decrease in her glucose level this morning after receiving usual Lantus dose of 30 units last night, with glucose decreasing down to 89. She states she does take insulin at home, has not missed any doses. She denies any acute medical illness, denies any issues with GI tract and has been eating. Review of Systems 2 Const: Denies: fever(s) or chills Card: Denies: chest pain or dyspnea on exertion Resp: Denies: dyspnea or productive cough GI: Denies: abdominal pain, nausea, vomiting or diarrhea Neuro: Denies: confusion Medications/Allergies Home Medications Medication Instructions Recorded Confirmed Last Taken Type bupropion HCl 300 mg 24 hr tablet, 300 mg PO DAILY 04/01/24 04/01/24 Unknown History extended release (Wellbutrin XL) cetirizine 10 mg tablet (Zyrtec) 10 mg PO DAILY 04/01/24 04/01/24 Unknown History diclofenac sodium 1 % topical gel 10 g topical TID PRN Muscle Pain 04/01/24 04/01/24 Unknown History (Voltaren Arthritis Pain) ibuprofen 800 mg tablet (IBU) 800 mg PO TID PRN Pain 04/01/24 04/01/24 Unknown History insulin glargine 100 unit/mL (3 30 unit SUBCUT QPM 04/01/24 04/01/24 Unknown History mL) subcutaneous pen (Lantus Solostar U-100 Insulin) insulin lispro 100 unit/mL 18 unit SUBCUT TIDWMEAL 04/01/24 04/01/24 04/01/24 12:00 History subcutaneous pen (Humalog KwikPen 18 (U-100) Insulin) naltrexone 50 mg tablet 50 mg PO BEDTIME 04/01/24 04/01/24 Unknown History olanzapine 20 mg tablet (Zyprexa) 20 mg PO BEDTIME 04/01/24 04/01/24 Unknown History omeprazole 40 mg capsule,delayed 40 mg PO DAILY 04/01/24 04/01/24 Unknown History release oxcarbazepine 300 mg tablet 300 mg PO BID 04/01/24 04/01/24 Unknown History (Trileptal) prazosin 2 mg capsule 2 mg PO BEDTIME 04/01/24 04/01/24 Unknown History propranolol 20 mg tablet 20 mg PO TID 04/01/24 04/01/24 Unknown History topiramate 100 mg tablet (Topamax) 100 mg PO BEDTIME 04/01/24 04/01/24 Unknown History Allergies Allergy/AdvReac Type Severity Reaction Status Date / Time aripiprazole [From Abilify] Allergy ADR/ALGY-Pa Verified 12/11/23 15:22 lpitations butorphanol [From Stadol] Allergy ADR/ALGY-Pa Verified 12/11/23 15:23 lpitations prednisone Allergy Unknown Verified 12/11/23 15:23 Current Medications Generic Name Dose Route Start Last Admin Trade Name Freq PRN Reason Stop Dose Admin Acetaminophen 650 mg 04/01/24 22:04 04/03/24 16:38 Acetaminophen 325 Mg Tablet PO 650 mg Q4H PRN Administration MILD PAIN Bupropion HCl 300 mg 04/02/24 09:00 04/03/24 08:28 Bupropion Xl (24 Hr) 300 Mg Tablet PO 300 mg DAILY ANNEMARIE Administration Cetirizine HCl 10 mg 04/02/24 09:00 04/03/24 08:29 Cetirizine 10 Mg Tablet PO 10 mg DAILY ANNEMARIE Administration Haloperidol 5 mg 04/01/24 22:04 04/03/24 14:20 Haloperidol 5 Mg Tablet PO 5 mg Q4H PRN Administration AGITATION Hydroxyzine Pamoate 50 mg 04/01/24 22:04 04/03/24 12:17 Hydroxyzine 25 Mg Capsule PO 50 mg Q6H PRN Administration ANXIETY Ibuprofen 800 mg 04/01/24 22:25 04/03/24 12:17 Ibuprofen 800 Mg Tablet PO 800 mg TID PRN Administration Pain Insulin Glargine 30 unit 04/02/24 18:00 04/02/24 17:51 Insulin Glargine 100 Units/1 Ml SUBCUT 30 unit DAILY@1800 ANNEMARIE Administration Insulin Human Lispro 0 unit 04/02/24 18:00 04/03/24 12:16 Insulin Lispro 100 Unit/1 Ml SUBCUT 12 unit WM&BEDTIME ANNEMARIE Administration Protocol Naltrexone HCl 50 mg 04/01/24 22:30 04/02/24 21:32 Naltrexone Hcl 50 Mg Tablet PO Not Given BEDTIME ANNEMARIE Nicotine 1 patch 12/14/24 22:04 04/03/24 12:50 Nicotine 21 Mg Patch TRANSDERMA 1 patch DAILY PRN Administration NICOTINE WITHDRAWAL Oxcarbazepine 300 mg 04/02/24 09:00 04/03/24 08:28 Oxcarbazepine 300 Mg Tablet PO 300 mg BID ANNEMARIE Administration Pantoprazole Sodium 40 mg 04/02/24 09:00 04/03/24 08:[address] 40 Mg Tablet PO 40 mg DAILY ANNEMARIE Administration Prazosin HCl 4 mg 04/02/24 21:00 04/02/24 21:01 Prazosin 1 Mg Capsule PO 4 mg BEDTIME ANNEMARIE Administration Propranolol HCl 20 mg 04/02/24 09:00 04/03/24 14:20 Propranolol 20 Mg Tablet PO 20 mg TID ANNEMARIE Administration Trazodone HCl 50 mg 04/01/24 22:04 04/01/24 23:21 Trazodone 50 Mg Tablet PO 50 mg BEDTIME PRN Administration SLEEP Triamcinolone Acetonide 1 applic 04/03/24 13:28 04/03/24 14:20 Triamcinolone 0.5% Cream 15 Gm TOPICAL 1 applic BID PRN Administration IRRITATION Ziprasidone 20 mg 04/02/24 14:22 04/02/24 14:36 Ziprasidone Hcl 20 Mg Capsule PO 20 mg 0700,1700 PRN Administration HALLUCINATIONS PFSH Acute 2 PFSH: Medical History Diabetes mellitus Vitals/I&O/Wt Last Vital Signs Temp 99.7 F H 04/03/24 14:00 Pulse 68 04/03/24 14:00 Resp 16 04/03/24 14:00 BP 125/87 04/03/24 14:00 Pulse Ox 99 04/03/24 14:00 O2 Del Method Room Air 04/03/24 14:00 Weight last 48 hrs Weight 68.084 kg Physical Exam 2 Narrative: Ambulatory in the common room. Const: COMMON NORMALS: no acute distress and patient oriented x3 GENERAL APPEARANCE: comfortable Neuro: COMMON NORMALS: patient oriented x3 Data 04/01/24 17:37 04/01/24 17:37 A&P Assessment and plan (1) Hypoglycemia: Reviewed vitals, POC glucose, CBC and BMP, psychiatry note, discussed with psychiatrist. Blood glucose came down as low as 39. Then early this morning was down to 89. Otherwise this afternoon hyperglycemic 396, 319. Discussed with her continuing sliding scale insulin, but decreasing Lantus for now to 15 units to help decrease chance of additional hypoglycemia, continuing consistent carbohydrate diet and following up additional blood glucose. Reassess chemistry with risk of hyperglycemia, DKA with insulin decrease in DM1. Monitor for risk of severe hypoglycemia, discussed with her regarding risks of hypoglycemia and she usually feels changes in sugar would be at high or low and knows to notify staff in case of any concerning symptoms. (2) Type 1 diabetes mellitus: Continue to to monitor POC glucose. Continue Lantus, sliding scale insulin, consult carbohydrate diet. Discussed with her on return home and continued monitoring of glucose, continue consistent carbohydrate diet, in case of rising blood glucose return to her prior management regimen. Plan MDD Polysubstance abuse PTSD Reviewed psychiatry note, discussed scratch, continue assessment and treatment on neuropsychiatric unit. Consult Attestations 2 Medical Necessity Statement: Continue hospitalization for assessment of management by psychiatry. and High MDM includes amount and/or complexity of data reviewed/ordered [ previous or external records, resulted lab(s)/test(s), ordered lab(s)/test(s) and other healthcare professional discussion] and described risk of complication, morbidity or mortality of management as documented Diagnoses Hypoglycemia E16.2 Type 1 diabetes mellitus E10.9
[2024-04-03] MEDS: insulin glargine 100 units/1 mL 15 UNIT SUBCUT (18:14)
[2024-04-03 18:25] LABS: Glucose Point of Care 374 mg/dL (70-110)
[2024-04-03 20:00] LABS: Glucose Point of Care 271 mg/dL (70-110)
[2024-04-03] MEDS: haloperidol 1 mg Tablet 2 MG PO (20:30)
[2024-04-03] MEDS: doxepin 10 mg Capsule 20 MG PO (20:30)
[2024-04-03] MEDS: prazosin 1 mg Capsule 4 MG PO (20:30)
[2024-04-03 22:00] VITALS: BP 126/89; PULSE 75; RESP 18; TEMP 36.6; O2SAT 99
[2024-04-04 06:00] VITALS: BP 131/84; PULSE 56; RESP 16; O2SAT 98
[2024-04-04 07:58] LABS: Glucose Point of Care 193 mg/dL (70-110)
[2024-04-04] MEDS: cetirizine 10 mg Tablet PO (09:12)
[2024-04-04] MEDS: OXcarbazepine 300 mg Tablet PO ×2 (09:12→17:28)
[2024-04-04] MEDS: buPROPion XL (24 HR) 300 mg Tablet PO (09:12)
[2024-04-04] MEDS: pantoprazole DR 40 mg Tablet PO (09:12)
[2024-04-04] MEDS: propranolol 20 mg Tablet PO ×3 (09:12→19:47)
[2024-04-04] MEDS: insulin lispro 100 unit/1 mL SUBCUT ×4 (09:13→19:54)
[2024-04-04 11:23] LABS: Glucose Point of Care 262 mg/dL (70-110)
[2024-04-04] MEDS: hyDROXYzine 25 mg Capsule 50 MG PO (11:24)
[2024-04-04] MEDS: ibuprofen 800 mg tablet PO ×2 (11:24→19:49)
[2024-04-04] MEDS: nicotine 21 mg Patch 1 PATCH TRANSDERMA (11:25)
[2024-04-04] MEDS: OLANZapine 5 mg ODT PO ×2 (12:40→17:28)
[2024-04-04 12:53] LABS: Blood Urea Nitrogen 12 mg/dL (6-20); Carbon Dioxide 24 mmol/L (22-29); Chloride 100 mmol/L (98-107); Creatinine Clr Calc Pharmacy 119.6675; Glomerular Filtration Rate 110.2 mL/min (90-130); Glucose 321 mg/dL (65-115); Osmolality Calculated 290 mOsm/kg (285-295); Sodium 134 mmol/L (136-145)
[2024-04-04 13:02] LABS: Anion Gap 15.4 (5-19); Potassium 5.4 mmol/L (3.5-5.1)
[2024-04-04] MEDS: triamcinolone 0.5% cream 15 gm 1 APPLIC TOPICAL (13:16)
[2024-04-04] MEDS: acetaminophen 325 mg Tablet 650 MG PO ×2 (13:17→17:28)
[2024-04-04 14:00] VITALS: BP 146/89; PULSE 72; RESP 17; TEMP 36.5; O2SAT 99
--- NOTE | 2024-04-04 16:00 | P.NPUPN_ITS ---
Subjective NPU 2 Subjective: 43-year-old female with a history of PTS D, polysubstance abuse, and depression admitted with suicidal ideation. Patient had reported continued hallucinations but was unable to specify what the hallucinations were telling her. She had reported some difficulties with falling asleep and stated she had awoken with a nightmare. She had reported continued PTSD symptoms. She had reported that she had been hopeful about going to a inpatient substance abuse treatment center and was attempting to call places in efforts to look for a home as she had been homeless recently. Patient had requested a switch off of Topamax and back to pregabalin for treating her diabetic neuropathy. She continued to endorse some depressed mood and passive suicidal thoughts. Mental Status Exam 2 MSE Comments: Patient is casually dressed, obese white female who was pleasant and cooperative on interview. Gait appeared within normal limits. Her hygiene was improving but still poor. There was no evidence of any abnormal involuntary motor movements, tics, or tremors. Her speech was normal in rate, rhythm and prosody. Thought process was linear, logical, goal-directed. Thought content showed evidence of suicidal ideation. She denied any homicidal ideation. She did not appear to be responding to internal stimuli although she reported hearing voices. There was no clear evidence of delusional thinking. Her mood was described as depressed. Her affect was restricted in range and mood congruent. He was alert and oriented to person, place, time and situation. Recent and remote memory appeared poor at this time. Her insight is poor. Judgment was poor. Impulse control was impaired as well. Vitals/I&O/Wt Last Vital Signs Temp 97.7 F 04/04/24 14:00 Pulse 72 04/04/24 14:00 Resp 17 04/04/24 14:00 BP 146/89 04/04/24 14:00 Pulse Ox 99 04/04/24 14:00 O2 Del Method Room Air 04/04/24 06:00 Data NPU 04/01/24 17:37 04/04/24 12:11 A&P Assessment and plan (1) Major depressive disorder, recurrent episode, unspecified: (2) Hypoglycemia: Reviewed vitals, POC glucose, CBC and BMP, psychiatry note, discussed with psychiatrist. Blood glucose came down as low as 39. Then early this morning was down to 89. Otherwise this afternoon hyperglycemic 396, 319. Discussed with her continuing sliding scale insulin, but decreasing Lantus for now to 15 units to help decrease chance of additional hypoglycemia, continuing consistent carbohydrate diet and following up additional blood glucose. Reassess chemistry with risk of hyperglycemia, DKA with insulin decrease in DM1. Monitor for risk of severe hypoglycemia, discussed with her regarding risks of hypoglycemia and she usually feels changes in sugar would be at high or low and knows to notify staff in case of any concerning symptoms. (3) Polysubstance abuse: (4) PTSD (post-traumatic stress disorder): (5) Type 1 diabetes mellitus: Continue to to monitor POC glucose. Continue Lantus, sliding scale insulin, consult carbohydrate diet. Discussed with her on return home and continued monitoring of glucose, continue consistent carbohydrate diet, in case of rising blood glucose return to her prior management regimen. (6) Suicidal ideation: (7) Depression: Plan 43-year-old female with a history of polysubstance abuse but depression and suicidal ideation currently homeless. Patient had requested adjustment of her medication regimen. #1.? Engage patient in individual milieu and group therapy. #2?? Recommend sober living treatment at the highest level of care to which the patient is willing to commit #3??? CIWA for alcohol withdrawal #4?? TO-15 minute checks? #5?? Will attempt to gather collateral information #6 Appreciate medical consult. Increase Prazosin to 4mg at night, Haldol as prescribed for psychosis. Continue Trileptal, restart Pregabalin 75mg bid. Involuntary Hold Information 2 96 Hour Hold: 96 Hour Involuntary Admission: Yes 96 Hour Hold Ending Date: 04/07/24 96 Hour Hold Ending Time: 00:01 Other Hold: Hold End Date: 04/07/24 Attestations NPU 2 Medical Necessity Statement*: Inpatient hospitalization is medically necessary and deemed to ?be ?the clinically appropriate intervention ?at this time.? We will monitor/initiate medications and make changes as indicated.? The patient?s likely length of stay 7-10 days. Coding Level of Care Code Acute Code for g Fwd Diagnoses Major depressive disorder, recurrent episode, unspecified F33.9 Hypoglycemia E16.2 Polysubstance abuse F19.10 PTSD (post-traumatic stress disorder) F43.10 Type 1 diabetes mellitus E10.9 Suicidal ideation R45.851 Depression F32.A
[2024-04-04 17:15] LABS: Glucose Point of Care 278 mg/dL (70-110)
[2024-04-04] MEDS: pregabalin 75 mg Capsule PO (17:28)
[2024-04-04] MEDS: insulin glargine 100 units/1 mL 15 UNIT SUBCUT (17:30)
--- NOTE | 2024-04-04 18:34 | P.PN_ITS ---
Subjective 2 Subjective: She says she is doing okay. Denies any new developments. Vitals/I&O/Wt Last Vital Signs Temp 97.7 F 04/04/24 14:00 Pulse 72 04/04/24 14:00 Resp 17 04/04/24 14:00 BP 146/89 04/04/24 14:00 Pulse Ox 99 04/04/24 14:00 O2 Del Method Room Air 04/04/24 06:00 Physical Exam 2 Narrative: Ambulatory in the common room. Const: COMMON NORMALS: no acute distress and patient oriented x3 GENERAL APPEARANCE: comfortable Neuro: COMMON NORMALS: patient oriented x3 Data 04/01/24 17:37 04/04/24 12:11 A&P Assessment and plan (1) Hypoglycemia: Reviewed vitals, reviewed POC glucose, reviewed chemistry. Blood glucose still with elevation up to 321 today, however, without hypoglycemia, now lowest was 193. Discussed with her increasing insulin Lantus up to 18 units. Continue sliding scale insulin. Continue to monitor POC glucose with risk of hypoglycemia, hyperglycemia. Continue consistent carbohydrate diet, changed to low potassium due to mild hyperkalemia. Reviewed chemistry, with without anion gap elevation, bicarb is normal. Reviewed psychiatry note. (2) Type 1 diabetes mellitus: Continue to to monitor POC glucose. Continue Lantus, sliding scale insulin, consult carbohydrate diet. Discussed with her on return home and continued monitoring of glucose, continue consistent carbohydrate diet, in case of rising blood glucose return to her prior management regimen. Plan Mild hyperkalemia: Without anion gap elevation, bicarb is normal. Requesting low potassium in the diet. I do not see any potassium supplement. Repeat chemistry. MDD Polysubstance abuse PTSD Reviewed psychiatry note, continue assessment and treatment on neuropsychiatric unit. Attestations 2 Medical Necessity Statement*: Continue hospitalization for psychiatric assessment and management. Diagnoses Hypoglycemia E16.2 Type 1 diabetes mellitus E10.9
[2024-04-04] MEDS: doxepin 10 mg Capsule 20 MG PO (19:47)
[2024-04-04] MEDS: haloperidol 1 mg Tablet 2 MG PO (19:47)
[2024-04-04] MEDS: prazosin 1 mg Capsule 4 MG PO (19:48)
[2024-04-04 20:39] LABS: Glucose Point of Care 429 mg/dL (70-110)
[2024-04-04 22:00] VITALS: BP 132/82; PULSE 70; RESP 17; TEMP 36.6; O2SAT 99
[2024-04-05 00:06] LABS: Glucose Point of Care 53 mg/dL (70-110)
[2024-04-05] MEDS: acetaminophen 325 mg Tablet 650 MG PO ×4 (00:24→21:14)
[2024-04-05 05:41] VITALS: BP 126/86; PULSE 82; RESP 18; TEMP 36.6; O2SAT 96
[2024-04-05 08:14] LABS: Glucose Point of Care 368 mg/dL (70-110)
[2024-04-05] MEDS: insulin lispro 100 unit/1 mL SUBCUT ×4 (08:36→21:04)
[2024-04-05] MEDS: cetirizine 10 mg Tablet PO (08:36)
[2024-04-05] MEDS: pregabalin 75 mg Capsule PO (08:36)
[2024-04-05] MEDS: buPROPion XL (24 HR) 300 mg Tablet PO (08:36)
[2024-04-05] MEDS: propranolol 20 mg Tablet PO ×3 (08:36→21:07)
[2024-04-05] MEDS: pantoprazole DR 40 mg Tablet PO (08:36)
[2024-04-05] MEDS: nicotine 21 mg Patch 1 PATCH TRANSDERMA (08:36)
[2024-04-05] MEDS: OXcarbazepine 300 mg Tablet PO ×2 (08:36→17:34)
[2024-04-05] MEDS: hyDROXYzine 25 mg Capsule 50 MG PO ×3 (08:39→21:06)
[2024-04-05 10:35] LABS: Anion Gap 14.9 (5-19); Blood Urea Nitrogen 17 mg/dL (6-20); Calcium 9.6 mg/dL (8.5-10.5); Carbon Dioxide 26 mmol/L (22-29); Chloride 97 mmol/L (98-107); Creatinine Clr Calc Pharmacy 89.7507; Glucose 301 mg/dL (65-115); Osmolality Calculated 289 mOsm/kg (285-295); Potassium 4.9 mmol/L (3.5-5.1); Sodium 133 mmol/L (136-145)
[2024-04-05 11:44] LABS: Glucose Point of Care 145 mg/dL (70-110)
[2024-04-05] MEDS: ibuprofen 800 mg tablet PO (12:00)
[2024-04-05] MEDS: OLANZapine 5 mg ODT PO (12:00)
[2024-04-05 14:00] VITALS: BP 130/82; PULSE 71; RESP 16; O2SAT 100
--- NOTE | 2024-04-05 15:37 | P.PN_ITS ---
Vitals/I&O/Wt Last Vital Signs Temp 98 F 04/05/24 05:41 Pulse 82 04/05/24 05:41 Resp 18 04/05/24 05:41 BP 126/86 04/05/24 05:41 Pulse Ox 96 04/05/24 05:41 O2 Del Method Room Air 04/05/24 05:41 Physical Exam 2 Narrative: Sitting up at edge of bed. Const: COMMON NORMALS: no acute distress and patient oriented x3 GENERAL APPEARANCE: comfortable Neck/C-Spine: COMMON NORMALS: no JVD Resp: COMMON NORMALS: normal respiratory effort and clear to auscultation bilaterally AUSCULTATION: clear to auscultation bilaterally Cardio: COMMON NORMALS: no JVD, regular rhythm, S1 normal heart sound present, S2 normal heart sound present and No murmurs present (Cardio) RHYTHM: regular rhythm HEART SOUNDS: S1 normal heart sound present and S2 normal heart sound present Extremity: COMMON NORMALS: no joint enlargement and no pedal edema Neuro: COMMON NORMALS: patient oriented x3 Data 04/01/24 17:37 04/05/24 10:02 A&P Assessment and plan (1) Hypoglycemia: Reviewed vitals, blood glucose, history. Yesterday blood glucose came up as high as 129, received 14 units sliding scale insulin, subsequently woke up with hypoglycemia symptoms, blood glucose 53. Improved with oral sugary snack. We discussed with her additional adjustment of Lantus dose down to 13 units, as well as adjustment of sliding scale insulin with ceiling of 10 units as she appears to be doing well when she stays below that. Continue to reassess blood glucose. Discussed with psychiatrist. Hyperkalemia noted with improvement. Continue consistent carbohydrate diet, changed to low potassium due to mild hyperkalemia. Reviewed chemistry, with without anion gap elevation, bicarb is normal. Reviewed psychiatry note. (2) Type 1 diabetes mellitus: Continue to to monitor POC glucose. Continue Lantus, sliding scale insulin, consult carbohydrate diet. Discussed with her on return home and continued monitoring of glucose, continue consistent carbohydrate diet, in case of rising blood glucose return to her prior management regimen. Plan Mild hyperkalemia: Reviewed potassium. Hyperkalemia improved. Continue low potassium diet. Recheck chemistry. Without anion gap elevation, bicarb is normal. Requesting low potassium in the diet. I do not see any potassium supplement. Repeat chemistry. MDD Polysubstance abuse PTSD Reviewed psychiatry note, continue assessment and treatment on neuropsychiatric unit. Attestations 2 Medical Necessity Statement*: Continue hospitalization for psychiatric assessment and management. and High MDM includes amount and/or complexity of data reviewed/ordered [ previous or external records, resulted lab(s)/test(s), ordered lab(s)/test(s) and other healthcare professional discussion] as documented Diagnoses Hypoglycemia E16.2 Type 1 diabetes mellitus E10.9
[2024-04-05] MEDS: haloperidol 5 mg Tablet PO (16:27)
[2024-04-05 16:54] LABS: Glucose Point of Care 307 mg/dL (70-110)
--- NOTE | 2024-04-05 17:24 | P.NPUPN_ITS ---
Subjective NPU 2 Subjective: 43-year-old female with a history of PTS D, polysubstance abuse, and depression admitted with suicidal ideation. Patient had not endorsed any hallucinations today. She continued to report depressed mood. She had reported that her thoughts of suicide were less frequent. She was able to attend groups. She reported some struggles chronically with alcohol and opiate use. She had reported no nightmares last night and reported no side effects from the prazosin. Patient had continued to require additional medical consultation with elevation in blood sugars noted that she had acknowledged having problems with her diabetes for many years. Mental Status Exam 2 MSE Comments: Patient is casually dressed, obese white female who was pleasant and cooperative on interview. Gait appeared within normal limits. Her hygiene was improving. There was no evidence of any abnormal involuntary motor movements, tics, or tremors. Her Speech was normal in rate, rhythm and prosody. Thought process was linear, logical, goal-directed. Thought content showed evidence of suicidal ideation. She denied any homicidal ideation. She did not appear to be responding to internal stimuli and denied hearing voices on interview. There was no clear evidence of delusional thinking. Her mood was described as depressed. Her affect was restricted in range and mood congruent. He was alert and oriented to person, place, time and situation. Recent and remote memory appeared poor at this time. Her insight is poor. Judgment was poor. Impulse control was impaired as well. Vitals/I&O/Wt Last Vital Signs Temp 98 F 04/05/24 05:41 Pulse 71 04/05/24 14:00 Resp 16 04/05/24 14:00 BP 130/82 04/05/24 14:00 Pulse Ox 100 04/05/24 14:00 O2 Del Method Room Air 04/05/24 05:41 Data NPU 04/01/24 17:37 04/05/24 10:02 A&P Assessment and plan (1) Hypoglycemia: Reviewed vitals, blood glucose, history. Yesterday blood glucose came up as high as 129, received 14 units sliding scale insulin, subsequently woke up with hypoglycemia symptoms, blood glucose 53. Improved with oral sugary snack. We discussed with her additional adjustment of Lantus dose down to 13 units, as well as adjustment of sliding scale insulin with ceiling of 10 units as she appears to be doing well when she stays below that. Continue to reassess blood glucose. Discussed with psychiatrist. Hyperkalemia noted with improvement. Continue consistent carbohydrate diet, changed to low potassium due to mild hyperkalemia. Reviewed chemistry, with without anion gap elevation, bicarb is normal. Reviewed psychiatry note. (2) Type 1 diabetes mellitus: Continue to to monitor POC glucose. Continue Lantus, sliding scale insulin, consult carbohydrate diet. Discussed with her on return home and continued monitoring of glucose, continue consistent carbohydrate diet, in case of rising blood glucose return to her prior management regimen. (3) Major depressive disorder, recurrent episode, unspecified: (4) Polysubstance abuse: (5) PTSD (post-traumatic stress disorder): (6) Suicidal ideation: (7) Depression: Plan 43-year-old female with a history of polysubstance abuse but depression and suicidal ideation currently homeless. Patient had requested adjustment of her medication regimen. #1.? Engage patient in individual milieu and group therapy. #2?? Recommend sober living treatment at the highest level of care to which the patient is willing to commit #3??? CIWA for alcohol withdrawal #4?? TO-15 minute checks? #5?? Will attempt to gather collateral information #6 Appreciate medical consult. Continue Prazosin to 4mg at night, Haldol 4mg at night for psychosis. 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 Seeking inpatient substance abuse placement. Involuntary Hold Information 2 96 Hour Hold: 96 Hour Involuntary Admission: Yes 96 Hour Hold Ending Date: 04/07/24 96 Hour Hold Ending Time: 00:01 Other Hold: Hold End Date: 04/07/24 Attestations NPU 2 Medical Necessity Statement*: Inpatient hospitalization is medically necessary and deemed to ?be ?the clinically appropriate intervention ?at this time.? We will monitor/initiate medications and make changes as indicated.? The patient?s likely length of stay 7-10 days. Coding Level of Care Code Acute Code for Chg Fwd Diagnoses Hypoglycemia E16.2 Type 1 diabetes mellitus E10.9 Major depressive disorder, recurrent episode, unspecified F33.9 Polysubstance abuse F19.10 PTSD (post-traumatic stress disorder) F43.10 Suicidal ideation R45.851 Depression F32.A
[2024-04-05] MEDS: pregabalin 100 mg Capsule PO (17:35)
[2024-04-05] MEDS: insulin glargine 100 units/1 mL 13 UNIT SUBCUT (17:35)
[2024-04-05 20:17] LABS: Glucose Point of Care 321 mg/dL (70-110)
[2024-04-05 20:44] VITALS: BP 109/76; PULSE 75; RESP 17; TEMP 37; O2SAT 97
[2024-04-05] MEDS: haloperidol 1 mg Tablet 4 MG PO (21:06)
[2024-04-05] MEDS: prazosin 1 mg Capsule 4 MG PO (21:10)
--- NOTE | 2024-04-05 21:29 | PC.NURSE ---
Contacted pharmacy in reference to patient's Doxpin 25mg PO bedtime order, as the medication came in capsules that could not be split evenly. Pharmacy advised they would change order for a 25mg tablet. 2 doxepin capsules wasted as they were already opened, and 1 doxepin capsule returned to [facility].
[2024-04-05] MEDS: doxepin 25 mg Capsule PO (21:33)
[2024-04-06 00:55] LABS: Glucose Point of Care 96 mg/dL (70-110)
[2024-04-06 06:00] VITALS: BP 125/84; PULSE 82; RESP 18; TEMP 36.5; O2SAT 97
[2024-04-06] MEDS: nicotine 4 mg lozenge MUCOUS MEM (06:24)
[2024-04-06] MEDS: acetaminophen 325 mg Tablet 650 MG PO ×2 (06:24→20:19)
[2024-04-06 07:17] LABS: Glucose Point of Care 365 mg/dL (70-110)
[2024-04-06] MEDS: insulin lispro 100 unit/1 mL SUBCUT ×3 (08:00→20:04)
[2024-04-06] MEDS: pantoprazole DR 40 mg Tablet PO (08:52)
[2024-04-06] MEDS: pregabalin 100 mg Capsule PO ×2 (08:52→17:34)
[2024-04-06] MEDS: propranolol 20 mg Tablet PO ×3 (08:53→20:19)
[2024-04-06] MEDS: OXcarbazepine 300 mg Tablet PO ×2 (08:53→17:34)
[2024-04-06] MEDS: buPROPion XL (24 HR) 300 mg Tablet PO (08:53)
[2024-04-06] MEDS: cetirizine 10 mg Tablet PO (08:53)
[2024-04-06] MEDS: hyDROXYzine 25 mg Capsule 50 MG PO ×3 (08:53→20:25)
[2024-04-06 09:09] LABS: Blood Urea Nitrogen 22 mg/dL (6-20); Calcium 9.2 mg/dL (8.5-10.5); Carbon Dioxide 25 mmol/L (22-29); Chloride 96 mmol/L (98-107); Creatinine Clr Calc Pharmacy 102.5722; Glomerular Filtration Rate 92.2 mL/min (90-130); Glucose 358 mg/dL (65-115); Osmolality Calculated 294 mOsm/kg (285-295); Sodium 133 mmol/L (136-145)
[2024-04-06 09:23] LABS: Anion Gap 17.3 (5-19); Potassium 5.3 mmol/L (3.5-5.1)
[2024-04-06 11:20] LABS: Glucose Point of Care 110 mg/dL (70-110)
[2024-04-06] MEDS: nicotine 21 mg Patch 1 PATCH TRANSDERMA (11:46)
[2024-04-06] MEDS: OLANZapine 5 mg ODT PO ×2 (11:57→17:01)
[2024-04-06 14:00] VITALS: BP 115/85; PULSE 70; RESP 16; TEMP 36.8; O2SAT 98
--- NOTE | 2024-04-06 14:37 | W.PM.NPUPNS ---
Subjective NPU Subjective: 43-year-old female with a history of PTSD, polysubstance abuse, and depression admitted with suicidal ideation. The patient had reported that she still remained uncertain as to whether [facility] had availability yet. She had reported that she continued to hear voices but stated that they had been quieter. She had reported depressed mood but reported having less frequent suicidal thoughts. She had appeared more social on the milieu. She had continued to report nightmares but reported no side effects since the prazosin was increased. She had reported no cravings for opiates at this time. She had acknowledged having problems with alcohol and opiates currently. Patient was again informed that Suboxone was not an immediate option given the fact that she was recently given IM Vivitrol. Mental Status Exam MSE Comments: Patient is casually dressed, obese white female who was pleasant and cooperative on interview. Gait appeared within normal limits. Her hygiene was improving. There was no evidence of any abnormal involuntary motor movements, tics, or tremors. Her speech was normal in rate, rhythm and prosody. Thought process was linear, logical, goal-directed. Thought content: patient reported fleeting suicidal thoughts with no plan endorsed. She denied any homicidal ideation. She did not appear to be responding to internal stimuli and denied hearing voices on interview. There was no clear evidence of delusional thinking. Her mood was described as a little better. Her affect was restricted in range and mood incongruent. He was alert and oriented to person, place, time and situation. Recent and remote memory appeared poor at this time. Her insight is improving. Her judgment was poor. Impulse control was impaired as well. Vitals/I&O/Wt Last Vital Signs Temp 97.7 F 04/06/24 06:00 Pulse 82 04/06/24 06:00 Resp 18 04/06/24 06:00 BP 125/84 04/06/24 06:00 Pulse Ox 97 04/06/24 06:00 O2 Del Method Room Air 04/06/24 06:00 Data NPU 04/01/24 17:37 04/06/24 08:16 A&P Assessment and plan (1) Hypoglycemia: Reviewed vitals, blood glucose, history. Yesterday blood glucose came up as high as 129, received 14 units sliding scale insulin, subsequently woke up with hypoglycemia symptoms, blood glucose 53. Improved with oral sugary snack. We discussed with her additional adjustment of Lantus dose down to 13 units, as well as adjustment of sliding scale insulin with ceiling of 10 units as she appears to be doing well when she stays below that. Continue to reassess blood glucose. Discussed with psychiatrist. Hyperkalemia noted with improvement. Continue consistent carbohydrate diet, changed to low potassium due to mild hyperkalemia. Reviewed chemistry, with without anion gap elevation, bicarb is normal. Reviewed psychiatry note. (2) Type 1 diabetes mellitus: Continue to to monitor POC glucose. Continue Lantus, sliding scale insulin, consult carbohydrate diet. Discussed with her on return home and continued monitoring of glucose, continue consistent carbohydrate diet, in case of rising blood glucose return to her prior management regimen. (3) Major depressive disorder, recurrent episode, unspecified: (4) Polysubstance abuse: (5) PTSD (post-traumatic stress disorder): (6) Suicidal ideation: (7) Depression: Plan 43-year-old female with a history of polysubstance abuse but depression and suicidal ideation currently homeless. Patient had requested adjustment of her medication regimen. #1.? Engage patient in individual milieu and group therapy. #2?? Recommend sober living treatment at the highest level of care to which the patient is willing to commit #3??? CIWA for alcohol withdrawal #4?? TO-15 minute checks? #5?? Will attempt to gather collateral information #6 Appreciate medical consult. Continue Prazosin to 4mg at night, Haldol 4mg at night for psychosis. Continue Trileptal, Continue Lyrica to 100mg bid, Continue Wellbutrin xl 300mg in am. #7 Endocrinology appointment on outpatient basis to be helpful for her brittle diabetes. Seeking inpatient substance abuse placement. Continue to manage patient's brittle diabetes. Involuntary Hold Information 96 Hour Hold: 96 Hour Involuntary Admission: Yes 96 Hour Hold Ending Date: 04/07/24 96 Hour Hold Ending Time: 00:01 Other Hold: Hold End Date: 04/07/24 Attestations NPU Medical Necessity Statement*: Inpatient hospitalization is medically necessary and deemed to ?be ?the clinically appropriate intervention ?at this time.? We will monitor/initiate medications and make changes as indicated.? The patient?s likely length of stay 5-7 days. Coding Level of Care Code Acute Code for g Fwd Diagnoses Hypoglycemia E16.2 Type 1 diabetes mellitus E10.9 Major depressive disorder, recurrent episode, unspecified F33.9 Polysubstance abuse F19.10 PTSD (post-traumatic stress disorder) F43.10 Suicidal ideation R45.851 Depression F32.A
--- NOTE | 2024-04-06 14:55 | PC.NURSE ---
NEW ORDERS RECEIVED BY DR. LILLY TO HAVE LAB COLLECT VITAMIN D LEVEL IN AM. ORDERS PLACED. EDUCATION PROVIDED. ALL QUESTIONS ANSWERED AND SUPPORT VOICED.
[2024-04-06] MEDS: ibuprofen 800 mg tablet PO (16:59)
[2024-04-06 17:22] LABS: Glucose Point of Care 419 mg/dL (70-110)
[2024-04-06] MEDS: insulin glargine 100 units/1 mL 13 UNIT SUBCUT (17:32)
[2024-04-06 19:48] LABS: Glucose Point of Care 426 mg/dL (70-110)
[2024-04-06 20:16] VITALS: BP 137/86; PULSE 77; RESP 18; O2SAT 97
[2024-04-06] MEDS: naltrexone hcl 50 mg Tablet PO (20:20)
[2024-04-06] MEDS: haloperidol 1 mg Tablet 4 MG PO (20:20)
[2024-04-06] MEDS: prazosin 1 mg Capsule 4 MG PO (20:20)
[2024-04-06] MEDS: doxepin 25 mg Capsule PO (20:20)
--- NOTE | 2024-04-06 20:25 | P.PN_ITS ---
Subjective 2 Subjective: She states overall is doing okay. He has not had additional hypoglycemic episodes. Vitals/I&O/Wt Last Vital Signs Temp 98.3 F 04/06/24 14:00 Pulse 77 04/06/24 20:16 Resp 18 04/06/24 20:16 BP 137/86 04/06/24 20:16 Pulse Ox 97 04/06/24 20:16 O2 Del Method Room Air 04/06/24 20:16 Physical Exam 2 Narrative: Up in the common room. Const: COMMON NORMALS: no acute distress and patient oriented x3 GENERAL APPEARANCE: comfortable Neck/C-Spine: COMMON NORMALS: no JVD Resp: COMMON NORMALS: normal respiratory effort Cardio: COMMON NORMALS: no JVD Neuro: COMMON NORMALS: patient oriented x3 Data 04/01/24 17:37 04/06/24 08:16 A&P Assessment and plan (1) Hypoglycemia: So far without any further episodes of hypoglycemia. Noted blood glucose with increased up to 321 last night, after 10 units down to 96 around 1 AM. Then again further increase this morning to 365, after additional 10 units down to 110. For now continues on Lantus 13 units. Will reassess blood glucose. Reviewed vitals, repeat chemistry. Noted to gain mild hyperkalemia, 5.3. Continue low potassium diet. Reviewed bicarb, anion gap, so far without evidence of acidosis. Continue to optimize control of brittle diabetes. Continue consistent carbohydrate diet. Reviewed psychiatry note. (2) Type 1 diabetes mellitus: Continue to to monitor POC glucose. Continue Lantus, sliding scale insulin, consult carbohydrate diet. Discussed with her on return home and continued monitoring of glucose, continue consistent carbohydrate diet, in case of rising blood glucose return to her prior management regimen. Plan Mild hyperkalemia: Reviewed potassium. 5.3. Continue low potassium diet. Recheck chemistry. Without anion gap elevation, bicarb is normal. Requesting low potassium in the diet. I do not see any potassium supplement. Repeat chemistry. MDD Polysubstance abuse PTSD Reviewed psychiatry note, continue assessment and treatment on neuropsychiatric unit. Attestations 2 Medical Necessity Statement*: Continue hospitalization for psychiatric assessment and management. Diagnoses Hypoglycemia E16.2 Type 1 diabetes mellitus E10.9
[2024-04-07] MEDS: acetaminophen 325 mg Tablet 650 MG PO ×2 (04:41→15:17)
[2024-04-07] MEDS: OLANZapine 5 mg ODT PO (04:41)
[2024-04-07 04:46] LABS: Glucose Point of Care 268 mg/dL (70-110)
[2024-04-07 06:00] VITALS: BP 96/63; PULSE 60; RESP 18; O2SAT 100
[2024-04-07] MEDS: nicotine 4 mg lozenge MUCOUS MEM (07:28)
[2024-04-07 07:30] LABS: Glucose Point of Care 309 mg/dL (70-110)
[2024-04-07 08:13] LABS: Anion Gap 15.8 (5-19); Blood Urea Nitrogen 20 mg/dL (6-20); Calcium 8.8 mg/dL (8.5-10.5); Carbon Dioxide 26 mmol/L (22-29); Chloride 96 mmol/L (98-107); Creatinine Clr Calc Pharmacy 102.5722; Glomerular Filtration Rate 92.2 mL/min (90-130); Glucose 336 mg/dL (65-115); Osmolality Calculated 292 mOsm/kg (285-295); Potassium 4.8 mmol/L (3.5-5.1); Sodium 133 mmol/L (136-145)
[2024-04-07] MEDS: hyDROXYzine 25 mg Capsule 50 MG PO ×2 (08:29→15:18)
[2024-04-07] MEDS: insulin lispro 100 unit/1 mL SUBCUT ×3 (08:29→17:43)
[2024-04-07] MEDS: pregabalin 100 mg Capsule PO ×2 (08:29→17:44)
[2024-04-07] MEDS: propranolol 20 mg Tablet PO ×2 (08:29→15:18)
[2024-04-07] MEDS: OXcarbazepine 300 mg Tablet PO ×2 (08:29→17:44)
[2024-04-07] MEDS: pantoprazole DR 40 mg Tablet PO (08:29)
[2024-04-07] MEDS: buPROPion XL (24 HR) 300 mg Tablet PO (08:29)
[2024-04-07] MEDS: cetirizine 10 mg Tablet PO (08:29)
[2024-04-07 08:47] LABS: 25 Hydroxy Vitamin D 23 ng/mL (30-100)
[2024-04-07 11:23] LABS: Glucose Point of Care 193 mg/dL (70-110)
[2024-04-07] MEDS: nicotine 21 mg Patch 1 PATCH TRANSDERMA (12:17)
[2024-04-07 14:00] VITALS: BP 120/91; PULSE 73; RESP 16; TEMP 36.8; O2SAT 99
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
[2024-04-07 16:30] VITALS: BP 120/91; PULSE 73; RESP 16; TEMP 36.8; O2SAT 99
--- NOTE | 2024-04-07 16:42 | P.PN_ITS ---
Subjective 2 Subjective: She reports she is feeling well today. No further episodes of hypoglycemia. She tells me she might be going home soon. Vitals/I&O/Wt Last Vital Signs Temp 98.3 F 04/07/24 16:30 Pulse 73 04/07/24 16:30 Resp 16 04/07/24 16:30 BP 120/91 04/07/24 16:30 Pulse Ox 99 04/07/24 16:30 O2 Del Method Room Air 04/07/24 14:00 Physical Exam 2 Const: COMMON NORMALS: no acute distress and patient oriented x3 GENERAL APPEARANCE: comfortable Resp: COMMON NORMALS: normal respiratory effort Extremity: COMMON NORMALS: no joint enlargement and no pedal edema Neuro: COMMON NORMALS: patient oriented x3 Data 04/01/24 17:37 04/07/24 07:43 A&P Assessment and plan (1) Hypoglycemia: Hypoglycemia so far resolved. No further episodes. Has continued on Lantus 13 units as well as modified sliding scale with a 10 unit ceiling. Discussed with her. She indicates that she might be going home soon. Discussed with her continuation of the current regimen, however, she indicates that she likely will return to her previous regimen with which she also was managing to control her blood glucose. She states that she checks her sugars at least 6 times a day and that she has a Dexcom. She is agreeable and would like to follow-up with endocrinology after discharge. Referral will be provided. Additionally she asked for a refill prescription on Lantus - provided. Reviewed blood glucose. Reviewed chemistry. Potassium improved. Discussed with her mild hyperkalemia. Reviewed vitals, repeat chemistry. Hyperkalemia resolved. Continue low potassium diet. Reviewed bicarb, anion gap, so far without evidence of acidosis. Continue consistent carbohydrate diet. Glucose monitoring. Follow-up with endocrinology. (2) Type 1 diabetes mellitus: Continue to to monitor POC glucose. Continue Lantus, sliding scale insulin, consult carbohydrate diet. Discussed with her on return home and continued monitoring of glucose, continue consistent carbohydrate diet, in case of rising blood glucose return to her prior management regimen. Plan Mild hyperkalemia: Reviewed potassium. Hyperkalemia resolved. Continue low potassium diet. Discussed with her. Discussed follow-up with primary provider for reassessment. Without anion gap elevation, bicarb is normal. She does not take any potassium supplement at home. Repeat chemistry. MDD Polysubstance abuse PTSD Reviewed psychiatry note, continue assessment and treatment on neuropsychiatric unit. Attestations 2 Medical Necessity Statement*: Continue hospitalization for psychiatric assessment and management. Diagnoses Hypoglycemia E16.2 Type 1 diabetes mellitus E10.9
[2024-04-07 17:38] LABS: Glucose Point of Care 160 mg/dL (70-110)
[2024-04-07] MEDS: insulin glargine 100 units/1 mL 13 UNIT SUBCUT (17:43)
--- NOTE | 2024-04-07 18:05 | PC.NURSE ---
Follow-up appointment Patient says that she won't have a phone for notification of appointment with Dr. Sharp. Patient told to call unit and ask for Felisa on Wednesday. Patient verbalized understanding. Patient said that staff can call Marie at [facility], with appointment information, as well.
== END 2024-04-07 19:10 | disposition home or self-care (01) | DRG 885 ==
LOC: ER 19:42 → NP 20:39
PROVIDERS: Internal Medicine; Admitting Provider Psychiatry & Neurology Psychiatry; Emergency Provider Emergency Medicine; Visit Provider Psychiatry & Neurology Psychiatry
DX: F33.9 Major depressive disorder, recurrent, unspecified (principal); Z59.00 Homelessness unspecified; R45.851 Suicidal ideations; F19.10 Other psychoactive substance abuse, uncomplicated; F43.10 Post-traumatic stress disorder, unspecified; J44.9 Chronic obstructive pulmonary disease, unspecified; K21.9 Gastro-esophageal reflux disease without esophagitis; E66.9 Obesity, unspecified; Z68.25 Body mass index [BMI] 25.0-25.9, adult; E10.649 Type 1 diabetes mellitus with hypoglycemia without coma; E10.40 Type 1 diabetes mellitus with diabetic neuropathy, unspecified; E87.5 Hyperkalemia
CPT/HCPCS: 0241U; 36415; 36416; 80048; 80053; 80306; 80307; 81001; 81025; 82306; 82962; 84443; 85025; 93005; 96372; 97150; 97165; 99285; J1815

== ENCOUNTER 2024-04-07 20:25 | Inpatient (IN) | payer BC, MEDICAID, SELFPAY ==
[2024-04-07 20:30] VITALS: BP 138/81; PULSE 74; RESP 19; TEMP 36.7; O2SAT 96; BMI 28.8
--- NOTE | 2024-04-07 20:48 | ED.C_ITS ---
HPI - Psych 2 General: Chief Complaint: Psychiatric Symptoms Stated Complaint: MHE Time Seen by Provider: 04/07/24 20:35 History of Present Illness: Presents to the ER with suicidal ideation. Patient states she wants to shoot up her insulin and go off somewhere and just go to sleep. Patient is insulin type I diabetic who is brittle diabetes. Patient was just released from [facility] earlier today and thought she had a place to stay and then come to find out she did not have a place to stay which put her in a downward spiral to have the suicidal thoughts. Related Data Home Medications Medication Instructions Recorded Confirmed albuterol sulfate 90 mcg/actuation 2 inh inhalation Q4H PRN SOB 02/03/24 04/07/24 aerosol inhaler (Ventolin HFA) benztropine 0.5 mg tablet 0.5 mg PO DAILY 02/03/24 04/07/24 cyclobenzaprine 5 mg tablet 5 mg PO DAILY 02/03/24 04/07/24 doxepin 50 mg capsule 50 mg PO BEDTIME 02/03/24 04/07/24 ibuprofen 800 mg tablet 800 mg PO DAILY PRN Pain, Moderate 02/03/24 04/07/24 insulin glargine 100 unit/mL (3 38 unit SUBCUT DAILY 02/03/24 04/07/24 mL) subcutaneous pen (Lantus Solostar U-100 Insulin) insulin lispro 100 unit/mL 18 unit SUBCUT TID 02/03/24 04/07/24 subcutaneous pen loratadine 10 mg tablet 10 mg PO DAILY 02/03/24 04/07/24 nicotine 21 mg/24 hr daily 1 patch transdermal DAILY 02/03/24 04/07/24 transdermal patch omeprazole 40 mg capsule,delayed 40 mg PO DAILY 02/03/24 04/07/24 release oxcarbazepine 300 mg tablet 300 mg PO BID 02/03/24 04/07/24 prazosin 2 mg capsule 4 mg PO BEDTIME 02/03/24 04/07/24 pregabalin 100 mg capsule 100 mg PO BID 02/03/24 04/07/24 propranolol 20 mg tablet 20 mg PO TID 02/03/24 04/07/24 Allergies Allergy/AdvReac Type Severity Reaction Status Date / Time aripiprazole [From [facility]] Allergy ADR/ALGY-Pa Verified 04/07/24 20:37 lpitations butorphanol [From Stadol] Allergy ADR/ALGY-Pa Verified 04/07/24 20:37 lpitations prednisone Allergy Unknown Verified 04/07/24 20:37 Review of Systems 2 General: Reports: 10 or more systems reviewed and unremarkable except in HPI and below Physical Exam 2 Const: COMMON NORMALS: no acute distress, average body habitus, patient oriented x3, no limitations, healthy appearing, alert and well nourished HENMT: COMMON NORMALS: normocephalic and hearing grossly normal bilaterally HEAD & SCALP: normocephalic Neck/C-Spine: COMMON NORMALS: no JVD Chest: COMMONS NORMALS: normal inspection of the chest and normal palpation of entire chest wall Resp: COMMON NORMALS: normal respiratory effort, No retractions, No use of accessory muscles and clear to auscultation bilaterally AUSCULTATION: clear to auscultation bilaterally Cardio: COMMON NORMALS: no JVD, regular rate, regular rhythm, S1 normal heart sound present, S2 normal heart sound present, No gallops present (Cardio), No clicks present (Cardio), No murmurs present (Cardio) and No rub (Cardio) R ATE: regular rate RHYTHM: regular rhythm HEART SOUNDS: S1 normal heart sound present and S2 normal heart sound present GI: COMMON NORMALS: Normal to inspection, nondistended, normoactive bowel sounds present, Soft to palpation, non-tender, No hepatosplenomegaly present and no masses PALPATION: Yes Soft to palpation and Yes No hepatosplenomegaly present Neuro: COMMON NORMALS: patient oriented x3 SENSORIUM/ORIENTATION: Yes alert Course 2 Vital Signs: Vital signs: Vital Signs Temperature 97.9 F 04/07/24 22:06 Pulse Rate 67 04/07/24 22:25 Respiratory Rate 16 04/07/24 22:25 Blood Pressure 118/80 04/07/24 22:25 Pulse Oximetry 96 04/07/24 22:25 Oxygen Delivery Me thod Room Air 04/07/24 22:06 MDM - Psych Medical Decision Making Dr. Sher came to the ER and discussed this patient with myself and nursing. We will admit back to MPU. Medical Records I reviewed the patient's medical records. Lab Data I reviewed the patient's lab results. 04/07/24 21:00 04/07/24 21:00 Laboratory Results WBC 7.02 10^3/uL (3.29-11.43) 04/07/24 21:00 RBC 4.76 10^6/uL (3.85-5.65) 04/07/24 21:00 Hgb 13.90 g/dL (11.27-16.99) 04/07/24 21:00 Hct 42.1 % (36-47) 04/07/24 21:00 MCV 88.4 fl (85-98) 04/07/24 21:00 MCH 29.2 pg (27-33) 04/07/24 21:00 MCHC 33.0 g/dL (30-55) 04/07/24 21:00 RDW 14.4 % (12.1-15.1) 04/07/24 21:00 Plt Count 339 10^3/cmm (157-399) 04/07/24 21:00 MPV 8.9 fL (7.4-10.4) 04/07/24 21:00 Neut % (Auto) 56.9 % 04/07/24 21:00 Lymph % (Auto) 32.6 % 04/07/24 21:00 Benson % (Auto) 6.0 % 04/07/24 21:00 Eos % (Auto) 3.1 % 04/07/24 21:00 Baso % (Auto) 1.1 % 04/07/24 21:00 Neut # (Auto) 3.99 10^3/uL (1.8-7.7) 04/07/24 21:00 Lymph # (Auto) 2.3 10^3/uL (0.8-4.8) 04/07/24 21:00 Benson # (Auto) 0.4 10^3/uL (0.2-0.9) 04/07/24 21:00 Eos # (Auto) 0.2 10^3/uL (0.0-0.8) 04/07/24 21:00 Baso # (Auto) 0.1 10^3/uL (0.0-0.1) 04/07/24 21:00 Nucleated RBC % (auto) 0 % 04/07/24 21:00 Nucleated RBCs # 0.0 /100WBC 04/07/24 21:00 Sodium 129 mmol/L (136-145) L 12/20/24 21:00 Potassium 4.6 mmol/L (3.5-5.1) 04/07/24 21:00 Chloride 94 mmol/L (98-107) L 04/07/24 21:00 Carbon Dioxide 26 mmol/L (22-29) 04/07/24 21:00 Anion Gap 13.6 (5-19) 04/07/24 21:00 BUN 22 mg/dL (6-20) H 04/07/24 21:00 Creatinine 0.8 mg/dL (0.5-0.9) 04/07/24 21:00 GFR Calculation 79.0 mL/min (90-130) L 04/07/24 21:00 Glucose 380 mg/dL (65-115) H 04/07/24 21:00 Calculated Osmolality 287 mOsm/kg (285-295) 04/07/24 21:00 Calcium 9.6 mg/dL (8.5-10.5) 04/07/24 21:00 Total Bilirubin 0.2 mg/dL (0.15-1.2) 04/07/24 21:00 AST 14 U/L (0-32) 04/07/24 21:00 ALT 14 U/L (0-33) 04/07/24 21:00 Alkaline Phosphatase 115 U/L (35-105) H 04/07/24 21:00 Total Protein 7.4 g/dL (6.6-8.7) 04/07/24 21:00 Albumin 4.1 g/dL (3.5-5.2) 04/07/24 21:00 Globulin 3.3 g/dL (1.3-4.6) 04/07/24 21:00 Salicylates < 0.3 mg/dL (3-10) L 04/07/24 21:00 Acetaminophen < 5.0 ug/mL (10-30) L 04/07/24 21:00 Ethyl Alcohol < 10 mg/dL (0-10) 04/07/24 21:00 All radiology interpretation(s) finalized by discharge Discharge Plan Discharge Patient Disposition: Admitted As Inpatient Admit Provider: Dereck Benavidez Clinical Impression: Suicidal ideation Condition: Stable Coding Level of Care Code ED Advertising Statistical Clerk for Sebastieng Lyndsay
[2024-04-07 21:14] VITALS: BP 107/82; PULSE 68; RESP 14; O2SAT 98
[2024-04-07 21:19] LABS: Basophils # 0.1 10^3/uL (0.0-0.1); Basophils % 1.1 %; Eosinophils # 0.2 10^3/uL (0.0-0.8); Eosinophils % 3.1 %; Hematocrit 42.1 % (36-47); Lymphocytes # 2.3 10^3/uL (0.8-4.8); Lymphocytes % 32.6 %; Mean Corpuscular Hemoglobin 29.2 pg (27-33); Mean Corpuscular Volume 88.4 fl (85-98); Mean Platelet Volume 8.9 fL (7.4-10.4); Monocytes # 0.4 10^3/uL (0.2-0.9); Neutrophils # 3.99 10^3/uL (1.8-7.7); Neutrophils % 56.9 %; Nucleated Red Blood Cells % 0 %; Platelet Count 339 10^3/cmm (157-399); Red Blood Count 4.76 10^6/uL (3.85-5.65); Red Cell Distribution Width 14.4 % (12.1-15.1); White Blood Count 7.02 10^3/uL (3.29-11.43)
[2024-04-07 21:28] LABS: Alanine Aminotransferase 14 U/L (0-33); Albumin Level 4.1 g/dL (3.5-5.2); Alkaline Phosphatase 115 U/L (35-105); Anion Gap 13.6 (5-19); Aspartate Amino Transferase 14 U/L (0-32); Blood Urea Nitrogen 22 mg/dL (6-20); Calcium 9.6 mg/dL (8.5-10.5); Carbon Dioxide 26 mmol/L (22-29); Chloride 94 mmol/L (98-107); Creatinine Clr Calc Pharmacy 106.3755; Globulin 3.3 g/dL (1.3-4.6); Glucose 380 mg/dL (65-115); Osmolality Calculated 287 mOsm/kg (285-295); Potassium 4.6 mmol/L (3.5-5.1); Sodium 129 mmol/L (136-145); Total Bilirubin 0.2 mg/dL (0.15-1.2); Total Protein 7.4 g/dL (6.6-8.7)
[2024-04-07 21:29] LABS: Acetaminophen < 5.0 ug/mL (10-30); Alcohol Level < 10 mg/dL (0-10); Salicylate < 0.3 mg/dL (3-10)
[2024-04-07 22:06] VITALS: BP 123/93; PULSE 67; RESP 18; TEMP 36.6; O2SAT 98
[2024-04-07 22:12] LABS: HCG Qualitative Urine. Negative (Negative)
[2024-04-07 22:13] LABS: Bilirubin Urine Negative (Negative); Blood Urine Negative (Negative); Glucose Urine UA 3+ (Normal); Ketones Urine Negative (Negative); Leukocyte Esterase Urine Negative (Negative); Nitrate Urine Negative (Negative); Protein Urine Negative (Negative); Specific Gravity, Urine 1.025 (1.005-1.030); Urine Appearance Clear (CLEAR); Urine Color Yellow (Yellow); Urobilinogen Urine 0.2 mg/dL (Negative)
[2024-04-07 22:17] LABS: Add Urine Microscopic? YES; Bacteria Urine None Seen /hpf; Hyaline Casts Urine 0-4 /lpf; RBC Urine 0-2 /hpf (0-2); Squamous Epithelial Cell Urine 0-5 /hpf (0-5); WBC Urine 0-5 /hpf (0-5)
[2024-04-07 22:23] LABS: Glucose Point of Care 382 mg/dL (70-110)
[2024-04-07 22:25] VITALS: BP 118/80; PULSE 67; RESP 16; O2SAT 96
[2024-04-07 22:29] LABS: Amphetamines Screen Urine Negative (Negative); Barbiturates Screen Urine Negative (Negative); Benzodiazepines Screen Urine Negative (Negative); Cocaine Screen Urine Negative (Negative); Opiate Screen Urine Negative (Negative); PCP Screen Urine Negative (Negative); THC Screen Urine Positive (Negative)
[2024-04-07] MEDS: doxepin 50 mg Capsule PO (23:44)
[2024-04-07] MEDS: propranolol 20 mg Tablet PO (23:44)
[2024-04-07] MEDS: hyDROXYzine 25 mg Capsule 50 MG PO (23:44)
[2024-04-07] MEDS: insulin lispro 100 unit/1 mL SUBCUT (23:45)
[2024-04-07] MEDS: haloperidol 5 mg Tablet PO (23:58)
[2024-04-07] MEDS: prazosin 1 mg Capsule 4 MG PO (23:58)
[2024-04-08 06:00] VITALS: BP 109/66; PULSE 65; RESP 16; O2SAT 98
[2024-04-08] MEDS: hyDROXYzine 25 mg Capsule 50 MG PO ×3 (06:52→20:22)
[2024-04-08] MEDS: ibuprofen 600 mg Tablet PO ×3 (06:52→18:37)
[2024-04-08 07:28] LABS: Glucose Point of Care 233 mg/dL (70-110)
[2024-04-08] MEDS: nicotine 21 mg Patch 1 PATCH TRANSDERMA (07:43)
[2024-04-08] MEDS: pregabalin 100 mg Capsule PO ×2 (07:52→17:17)
[2024-04-08] MEDS: insulin lispro 100 unit/1 mL 18 UNIT SUBCUT ×3 (07:52→17:18)
[2024-04-08] MEDS: loratadine 10 mg Tablet PO (07:52)
[2024-04-08] MEDS: benztropine 1 mg Tablet 0.5 MG PO (07:52)
[2024-04-08] MEDS: cyclobenzaprine 10 mg Tablet 5 MG PO (07:52)
[2024-04-08] MEDS: pantoprazole DR 40 mg Tablet PO (07:53)
[2024-04-08] MEDS: OXcarbazepine 300 mg Tablet PO ×2 (07:53→17:17)
[2024-04-08] MEDS: pneumococcal (23 valent) SDV 0.5 mL IM (07:53)
[2024-04-08] MEDS: propranolol 20 mg Tablet PO ×3 (07:53→20:22)
[2024-04-08] MEDS: flu vacc pf 24-25 (6 mos+) SYRINGE 45 MCG IM (07:55)
[2024-04-08] MEDS: OLANZapine 5 mg ODT PO ×2 (09:23→14:29)
--- NOTE | 2024-04-08 09:24 | PC.NURSE ---
Zyprexa Patient rates anxiety 11/26, stating that her anxiety is worse in the morining and in the evenings.
[2024-04-08 11:25] LABS: Glucose Point of Care 131 mg/dL (70-110)
[2024-04-08 14:00] VITALS: BP 109/79; PULSE 80; RESP 18; TEMP 36.8; O2SAT 98
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
[2024-04-08] MEDS: acetaminophen 325 mg Tablet 650 MG PO (15:53)
[2024-04-08 16:05] VITALS: PULSE 75; RESP 18; O2SAT 97
[2024-04-08 17:11] LABS: Glucose Point of Care 204 mg/dL (70-110)
[2024-04-08] MEDS: haloperidol 5 mg Tablet PO (17:17)
[2024-04-08] MEDS: insulin glargine 100 units/1 mL 38 UNIT SUBCUT (18:08)
--- NOTE | 2024-04-08 18:39 | PC.NURSE ---
Urinalysis Urinalysis ordered for c/o of low-back pain and dysuria. Onset of dysuria is today
[2024-04-08 20:06] LABS: Glucose Point of Care 150 mg/dL (70-110)
[2024-04-08] MEDS: prazosin 1 mg Capsule 4 MG PO (20:22)
[2024-04-08] MEDS: nicotine 4 mg lozenge MUCOUS MEM (20:22)
[2024-04-08] MEDS: doxepin 50 mg Capsule PO (20:22)
[2024-04-08] MEDS: insulin lispro 100 unit/1 mL SUBCUT (20:23)
[2024-04-08 20:51] LABS: Bilirubin Urine Negative (Negative); Blood Urine Negative (Negative); Glucose Urine UA 2+ (Normal); Ketones Urine Negative (Negative); Leukocyte Esterase Urine Negative (Negative); Nitrate Urine Negative (Negative); Protein Urine Negative (Negative); Urine Appearance Clear (CLEAR); Urine Color Yellow (Yellow); Urobilinogen Urine 0.2 mg/dL (Negative); pH Urine 5.5 (5-7)
[2024-04-08 20:55] LABS: Add Urine Microscopic? YES; Bacteria Urine None Seen /hpf; Hyaline Casts Urine 0.81 /lpf; RBC Urine 0-2 /hpf (0-2); Squamous Epithelial Cell Urine 0-5 /hpf (0-5); WBC Urine 0-5 /hpf (0-5)
[2024-04-08 22:00] VITALS: BP 118/81; PULSE 67; RESP 16; TEMP 36.8; O2SAT 99
[2024-04-09 06:00] VITALS: BP 107/76; PULSE 75; RESP 16; TEMP 36.8; O2SAT 98; BMI 37.0
[2024-04-09 06:28] LABS: Glucose Point of Care 226 mg/dL (70-110)
[2024-04-09 07:08] LABS: Glucose Point of Care 200 mg/dL (70-110)
[2024-04-09] MEDS: OXcarbazepine 300 mg Tablet PO ×2 (08:10→18:02)
[2024-04-09] MEDS: benztropine 1 mg Tablet 0.5 MG PO (08:10)
[2024-04-09] MEDS: pregabalin 100 mg Capsule PO ×2 (08:10→18:02)
[2024-04-09] MEDS: pantoprazole DR 40 mg Tablet PO (08:10)
[2024-04-09] MEDS: loratadine 10 mg Tablet PO (08:10)
[2024-04-09] MEDS: hyDROXYzine 25 mg Capsule 50 MG PO ×3 (08:10→21:00)
[2024-04-09] MEDS: propranolol 20 mg Tablet PO ×2 (08:10→21:00)
[2024-04-09] MEDS: nicotine 21 mg Patch 1 PATCH TRANSDERMA (08:10)
[2024-04-09] MEDS: insulin lispro 100 unit/1 mL 18 UNIT SUBCUT (08:11)
[2024-04-09] MEDS: cyclobenzaprine 10 mg Tablet 5 MG PO (08:11)
--- NOTE | 2024-04-09 09:24 | PC.NURSE ---
Morning assessment During morning assessment, patient reports back pain that she rates 10/10. Patient also reports moderate anxiety. Patient denies suicidal thoughts, homicidal thoughts, and hallucinations. Patient cooperative. Patient given 1buprofen for back pain and vistaril for anxiety.
[2024-04-09 11:13] LABS: Glucose Point of Care 71 mg/dL (70-110)
[2024-04-09] MEDS: OLANZapine 5 mg ODT PO (11:24)
[2024-04-09] MEDS: acetaminophen 325 mg Tablet 650 MG PO ×3 (11:24→21:51)
--- NOTE | 2024-04-09 11:26 | PC.NURSE ---
Anxiety Patient rates anxiety 8/10 after waking up. Pari said this is d/t past traumas, that she has increased anxiety when waking up. Administered zyprexa 5mg ODT and acetaminophen PO for right arm pain caused by flu vaccine administration yesterday.
[2024-04-09] MEDS: ondansetron 4 MG Tablet PO ×2 (13:28→21:01)
[2024-04-09 13:48] LABS: Glucose Point of Care 65 mg/dL (70-110)
[2024-04-09 14:00] VITALS: BP 101/70; PULSE 86; RESP 17; TEMP 37.1; O2SAT 96
[2024-04-09 14:24] LABS: Glucose Point of Care 75 mg/dL (70-110)
--- NOTE | 2024-04-09 14:28 | P.NPUPN_ITS ---
Subjective NPU 2 Subjective: 43-year-old female with a history of PTS D, polysubstance abuse, and depression admitted with suicidal ideation. Patient had reported depression and suicidal ideation. She had reported no cravings for opiates. She had continued to report wanting to go to an inpatient rehabilitation center that would be available towards the end of this month. She had been isolative on the milieu. She had reported that she continued to hear voices at this time. Patient had reported continued problems with fatigue. Mental Status Exam 2 MSE Comments: Patient is casually dressed, obese white female who was pleasant and cooperative on interview. Gait appeared within normal limits. Her hygiene was poor. There was no evidence of any abnormal involuntary motor movements, tics, or tremors. Her speech was normal in rate, rhythm and prosody. Thought process was linear, logical, goal-directed. Thought content showed evidence of suicidal ideation. She denied any homicidal ideation. She did not appear to be responding to internal stimuli although she reported auditory hallucinations. There was no clear evidence of delusional thinking. Her mood was described as okay. Her affect was flat. She was alert and oriented to person, place, time and situation. Recent and remote memory appeared poor at this time. Her insight is poor. Judgment was poor. Impulse control was impaired as well. Vitals/I&O/Wt Last Vital Signs Temp 98.2 F 04/09/24 06:00 Pulse 75 04/09/24 06:00 Resp 16 04/09/24 06:00 BP 107/76 04/09/24 06:00 Pulse Ox 98 04/09/24 06:00 O2 Del Method Room Air 04/09/24 06:00 04/08/24 04/09/24 04/09/24 22:59 06:59 14:59 Intake Total 600 / 600 Balance 600 / 600 Weight last 48 hrs Weight 110.336 kg Weight 86.183 kg Data NPU 04/07/24 21:00 04/07/24 21:00 A&P Assessment and plan (1) Unspecified psychosis: (2) Suicidal ideation: (3) Opioid dependence: (4) Alcohol dependence: (5) Major depressive disorder, recurrent episode, unspecified: (6) PTSD (post-traumatic stress disorder): Plan 43-year-old female with a history of opiate dependence and alcohol dependence along with depression admitted with suicidal ideation less than 24 hours after discharge with significant psychosocial stressors. The patient continues to report motivation to enter into inpatient substance abuse treatment. #1.? Engage patient in individual milieu and group therapy. #2?? Recommend sober living treatment at the highest level of care to which the patient is willing to commit #3??? Continue Haldol, trileptal, lyrica, wellbutrin as prescribed. #4?? TO-15 minute checks? Involuntary Hold Information 2 96 Hour Hold: 96 Hour Involuntary Admission: Yes Attestations NPU 2 Medical Necessity Statement*: Inpatient hospitalization is medically necessary and deemed to ?be ?the clinically appropriate intervention ?at this time.? We will monitor/initiate medications and make changes as indicated.? The patient?s likely length of stay 4-6 days. Coding Level of Care Code Acute Code for Chg Fwd Diagnoses Unspecified psychosis F29 Suicidal ideation R45.851 Opioid dependence F11.20 Alcohol dependence F10.20 Major depressive disorder, recurrent episode, unspecified F33.9 PTSD (post-traumatic stress disorder) F43.10
--- NOTE | 2024-04-09 14:33 | PC.NURSE ---
Vomiting After lunch, patient's roommate notified this nurse of Andreea being sick in their shared bathroom. This teletypewriter operator quickly went to check on patient. Patient had been vomiting in the toilet. Patient stated that she wasn't hungry at lunch, but ate all of her lunch, and it made her sick. This nurse administered zofran by mouth. After a short amount of time, patient's blood glucose level was checked. The result was 65. Patient said she could not eat food, but was agreeable to drink orange juice. After about 50 minutes, this nurse rechecked blood glucose level. Reading was 75. Patient reports feeling fatigued. Patient agreeable to sip on more OJ. Will continue to closely monitor.
--- NOTE | 2024-04-09 14:49 | PC.NURSE ---
Propranolol refusal Patient refused 1500 Propranolol due to upset stomach
[2024-04-09] MEDS: ibuprofen 600 mg Tablet PO (15:26)
--- NOTE | 2024-04-09 16:21 | PC.NURSE ---
Patient continues to rest in bed. Patient reports body aches and fatigue.
[2024-04-09 17:35] LABS: Glucose Point of Care 205 mg/dL (70-110)
[2024-04-09] MEDS: insulin glargine 100 units/1 mL 38 UNIT SUBCUT (17:59)
--- NOTE | 2024-04-09 18:16 | PC.NURSE ---
Patient refused humalog at dinner time due to her inability to eat more than two bites of her dinner. Patient agreeable to take her lantus. Patient c/o nausea, body aches, fatigue, and headache.
[2024-04-09 18:19] LABS: Adenovirus Not Detected (NOT DETECT); Chlamydia Pneumoniae Not Detected (NOT DETECT); Coronavirus 229E,HKU1,NL63,OC4 Not Detected (NOT DETECT); Human Metapneumovirus Not Detected (NOT DETECT); Human Rhinovirus/Enterovirus Not Detected (NOT DETECT); Influenza A Not Detected (NOT DETECT); Influenza A H1 Not Detected (NOT DETECT); Influenza A H1-2009 Not Detected (NOT DETECT); Influenza A H3 Not Detected (NOT DETECT); Influenza B Not Detected (NOT DETECT); Mycoplasma Pneumoniae Not Detected (NOT DETECT); Parainfluenza Virus Type 1 Not Detected (NOT DETECT); Parainfluenza Virus Type 2 Not Detected (NOT DETECT); Parainfluenza Virus Type 3 Not Detected (NOT DETECT); Parainfluenza Virus Type 4 Not Detected (NOT DETECT); Respiratory Syncytial Virus A Not Detected (NOT DETECT); Respiratory Syncytial Virus B Not Detected (NOT DETECT); SARS-COV-2 Not Detected (NOT DETECT)
[2024-04-09 19:27] VITALS: BP 110/75; PULSE 96; RESP 16; TEMP 36.8; O2SAT 97
[2024-04-09 20:06] LABS: Glucose Point of Care 316 mg/dL (70-110)
[2024-04-09] MEDS: nicotine 4 mg lozenge MUCOUS MEM (21:00)
[2024-04-09] MEDS: haloperidol 1 mg Tablet 4 MG PO (21:00)
[2024-04-09] MEDS: insulin lispro 100 unit/1 mL SUBCUT (21:01)
[2024-04-09] MEDS: doxepin 50 mg Capsule PO (21:01)
[2024-04-09] MEDS: prazosin 1 mg Capsule 4 MG PO (21:01)
[2024-04-10 02:06] LABS: Glucose Point of Care 177 mg/dL (70-110)
[2024-04-10 06:00] VITALS: BP 98/64; PULSE 86; RESP 18; TEMP 36.9; O2SAT 96
[2024-04-10] MEDS: acetaminophen 325 mg Tablet 650 MG PO ×3 (06:24→20:34)
[2024-04-10 07:28] LABS: Glucose Point of Care 236 mg/dL (70-110)
[2024-04-10] MEDS: insulin lispro 100 unit/1 mL 18 UNIT SUBCUT ×2 (08:28→12:30)
[2024-04-10] MEDS: hyDROXYzine 25 mg Capsule 50 MG PO ×2 (08:29→20:40)
[2024-04-10] MEDS: nicotine 21 mg Patch 1 PATCH TRANSDERMA (08:29)
[2024-04-10] MEDS: propranolol 20 mg Tablet PO ×2 (08:29→15:43)
[2024-04-10] MEDS: OXcarbazepine 300 mg Tablet PO ×2 (08:29→17:25)
[2024-04-10] MEDS: ibuprofen 600 mg Tablet PO ×2 (08:29→15:44)
[2024-04-10] MEDS: cyclobenzaprine 10 mg Tablet 5 MG PO (08:29)
[2024-04-10] MEDS: loratadine 10 mg Tablet PO (08:30)
[2024-04-10] MEDS: pregabalin 100 mg Capsule PO ×2 (08:30→17:25)
[2024-04-10] MEDS: benztropine 1 mg Tablet 0.5 MG PO (08:30)
[2024-04-10] MEDS: pantoprazole DR 40 mg Tablet PO (08:30)
[2024-04-10 11:56] LABS: Glucose Point of Care 140 mg/dL (70-110)
[2024-04-10] MEDS: OLANZapine 5 mg ODT PO (12:33)
[2024-04-10 14:00] VITALS: BP 102/78; PULSE 83; RESP 18; TEMP 37.5; O2SAT 95
--- NOTE | 2024-04-10 14:12 | P.NPUPN_ITS ---
Subjective NPU 2 Subjective: 43-year-old female with a history of PTS D, polysubstance abuse, and depression admitted with suicidal ideation. Patient had reported having intermittent suicidal thoughts. She had reported that she had not been hearing voices. She had reported no cravings for opiates or alcohol at this time. She reported no side effects from her medication regimen. She had reported some pain issues. She had more isolative and stated that she had limited social supports. She had continued to state that she wished to go into an inpatient substance abuse treatment program as her issues with sobriety had led to her decompensation. Mental Status Exam 2 MSE Comments: Patient is casually dressed, obese white female who was pleasant and cooperative on interview. Gait appeared within normal limits. Her hygiene was poor. There was no evidence of any abnormal involuntary motor movements, tics, or tremors. Her speech was normal in rate, rhythm and prosody. There was continued evidence of psychomotor retardation. Thought process was linear, logical, goal-directed. Thought content showed evidence of suicidal ideation. She denied any homicidal ideation. She did not appear to be responding to internal stimuli although she reported auditory hallucinations. There was no clear evidence of delusional thinking. Her mood was described as depressed. Her affect remained flat. She was alert and oriented to person, place, time and situation. Recent and remote memory appeared poor at this time. Her insight is poor. Judgment was poor. Impulse control was impaired as well. Vitals/I&O/Wt Last Vital Signs Temp 99.5 F 04/10/24 14:00 Pulse 83 04/10/24 14:00 Resp 18 04/10/24 14:00 BP 102/78 04/10/24 14:00 Pulse Ox 95 04/10/24 14:00 O2 Del Method Room Air 04/10/24 06:00 04/09/24 04/10/24 04/10/24 22:59 06:59 14:59 Intake Total 840 / 1800 Balance 840 / 1800 Weight last 48 hrs Weight 110.336 kg Data NPU 04/07/24 21:00 04/07/24 21:00 A&P Assessment and plan (1) Unspecified psychosis: (2) Suicidal ideation: (3) Opioid dependence: (4) Alcohol dependence: (5) Major depressive disorder, recurrent episode, unspecified: (6) PTSD (post-traumatic stress disorder): Plan 43-year-old female with a history of opiate dependence and alcohol dependence along with depression admitted with suicidal ideation less than 24 hours after discharge with significant psychosocial stressors. The patient continues to report motivation to enter into inpatient substance abuse treatment. #1.? Engage patient in individual milieu and group therapy. #2?? Recommend sober living treatment at the highest level of care to which the patient is willing to commit #3??? Continue Haldol, trileptal, lyrica, wellbutrin as prescribed. #4?? TO-15 minute checks? Involuntary Hold Information 2 96 Hour Hold: 96 Hour Involuntary Admission: Yes Other Hold: Hold End Date: 04/07/24 Attestations NPU 2 Medical Necessity Statement*: Inpatient hospitalization is medically necessary and deemed to ?be ?the clinically appropriate intervention ?at this time.? We will monitor/initiate medications and make changes as indicated.? The patient?s likely length of stay 4-6 days. Coding Level of Care Code Acute Code for Chg Fwd Diagnoses Unspecified psychosis F29 Suicidal ideation R45.851 Opioid dependence F11.20 Alcohol dependence F10.20 Major depressive disorder, recurrent episode, unspecified F33.9 PTSD (post-traumatic stress disorder) F43.10
[2024-04-10 16:59] LABS: Glucose Point of Care 86 mg/dL (70-110)
[2024-04-10] MEDS: insulin glargine 100 units/1 mL 38 UNIT SUBCUT (18:20)
[2024-04-10 19:18] LABS: Glucose Point of Care 110 mg/dL (70-110)
[2024-04-10 19:39] VITALS: BP 98/59; PULSE 79; RESP 16; TEMP 37.4; O2SAT 96
[2024-04-10 19:40] VITALS: BP 102/78
[2024-04-10] MEDS: haloperidol 5 mg Tablet PO (20:34)
[2024-04-10] MEDS: prazosin 1 mg Capsule 4 MG PO (20:34)
[2024-04-10] MEDS: doxepin 50 mg Capsule PO (20:34)
[2024-04-11 06:00] VITALS: BP 110/72; PULSE 69; RESP 16; TEMP 36.9; O2SAT 96
[2024-04-11 07:09] LABS: Glucose Point of Care 248 mg/dL (70-110)
[2024-04-11] MEDS: ibuprofen 600 mg Tablet PO ×2 (08:26→16:15)
[2024-04-11] MEDS: propranolol 20 mg Tablet PO ×3 (08:26→21:01)
[2024-04-11] MEDS: insulin lispro 100 unit/1 mL 18 UNIT SUBCUT ×2 (08:26→12:25)
[2024-04-11] MEDS: hyDROXYzine 25 mg Capsule 50 MG PO ×2 (08:27→16:18)
[2024-04-11] MEDS: OXcarbazepine 300 mg Tablet PO ×2 (08:27→17:45)
[2024-04-11] MEDS: pregabalin 100 mg Capsule PO ×2 (08:27→17:45)
[2024-04-11] MEDS: cyclobenzaprine 10 mg Tablet 5 MG PO (08:27)
[2024-04-11] MEDS: pantoprazole DR 40 mg Tablet PO (08:27)
[2024-04-11] MEDS: benztropine 1 mg Tablet PO (08:27)
[2024-04-11] MEDS: loratadine 10 mg Tablet PO (08:27)
[2024-04-11] MEDS: nicotine 21 mg Patch 1 PATCH TRANSDERMA (08:28)
[2024-04-11 11:17] LABS: Glucose Point of Care 176 mg/dL (70-110)
[2024-04-11 14:00] VITALS: BP 104/74; PULSE 87; RESP 17; TEMP 36.7; O2SAT 98
--- NOTE | 2024-04-11 15:47 | P.NPUPN_ITS ---
Subjective NPU 2 Subjective: Patient presented today reporting that she is feeling optimistic about the situation. [facility] and we are trying to make sure that she gets there sober and discussed the likelihood of her being here until that date. She denied any side effects to her medications. Mental Status Exam 2 MSE Comments: Patient is casually dressed, obese white female who was pleasant and cooperative on interview. Gait appeared within normal limits. Her hygiene was poor. There was no evidence of any abnormal involuntary motor movements, tics, or tremors. Her speech was normal in rate, rhythm and prosody. There was continued evidence of psychomotor retardation. Thought process was linear, logical, goal-directed. Thought content showed evidence of suicidal ideation. She denied any homicidal ideation. She did not appear to be responding to internal stimuli although she reported auditory hallucinations. There was no clear evidence of delusional thinking. Her mood was described as depressed. Her affect remained flat. She was alert and oriented to person, place, time and situation. Recent and remote memory appeared poor at this time. Her insight is poor. Judgment was poor. Impulse control was impaired as well. Vitals/I&O/Wt Last Vital Signs Temp 98.1 F 04/11/24 14:00 Pulse 87 04/11/24 14:00 Resp 17 04/11/24 14:00 BP 104/74 04/11/24 14:00 Pulse Ox 98 04/11/24 14:00 O2 Del Method Room Air 04/11/24 14:00 04/11/24 04/11/24 04/11/24 06:59 14:59 22:59 Intake Total 360 / 360 Balance 360 / 360 Data NPU 04/07/24 21:00 04/07/24 21:00 A&P Assessment and plan (1) Unspecified psychosis: (2) Suicidal ideation: (3) Opioid dependence: (4) Alcohol dependence: (5) Major depressive disorder, recurrent episode, unspecified: (6) PTSD (post-traumatic stress disorder): Plan 43-year-old female with a history of opiate dependence and alcohol dependence along with depression admitted with suicidal ideation less than 24 hours after discharge with significant psychosocial stressors. The patient continues to report motivation to enter into inpatient substance abuse treatment. #1.? Engage patient in individual milieu and group therapy. #2?? Recommend sober living treatment at the highest level of care to which the patient is willing to commit #3??? Continue Haldol, trileptal, lyrica, wellbutrin as prescribed. #4?? TO-15 minute checks? Involuntary Hold Information 2 96 Hour Hold: 96 Hour Involuntary Admission: Yes Other Hold: Hold End Date: 04/13/24 Attestations NPU 2 Medical Necessity Statement*: Inpatient hospitalization is medically necessary and deemed to ?be ?the clinically appropriate intervention ?at this time.? We will monitor/initiate medications and make changes as indicated.? The patient?s likely length of stay 4-6 days. Coding Level of Care Code Acute Code for Chg Fwd Diagnoses Unspecified psychosis F29 Suicidal ideation R45.851 Opioid dependence F11.20 Alcohol dependence F10.20 Major depressive disorder, recurrent episode, unspecified F33.9 PTSD (post-traumatic stress disorder) F43.10
[2024-04-11 16:51] LABS: Glucose Point of Care 54 mg/dL (70-110)
[2024-04-11] MEDS: insulin glargine 100 units/1 mL 38 UNIT SUBCUT (17:43)
[2024-04-11 17:58] LABS: Glucose Point of Care 95 mg/dL (70-110)
[2024-04-11] MEDS: OLANZapine 5 mg ODT PO (18:52)
[2024-04-11 19:26] LABS: Glucose Point of Care 164 mg/dL (70-110)
[2024-04-11 20:19] VITALS: BP 121/89; PULSE 72; RESP 16; TEMP 36.9; O2SAT 99
[2024-04-11] MEDS: haloperidol 5 mg Tablet PO (21:00)
[2024-04-11] MEDS: prazosin 1 mg Capsule 4 MG PO (21:00)
[2024-04-11] MEDS: doxepin 50 mg Capsule PO (21:01)
[2024-04-11] MEDS: insulin lispro 100 unit/1 mL SUBCUT (21:01)
[2024-04-12 06:00] VITALS: BP 110/69; PULSE 75; RESP 16; TEMP 36.9; O2SAT 96
[2024-04-12 07:18] LABS: Glucose Point of Care 109 mg/dL (70-110)
[2024-04-12] MEDS: hyDROXYzine 25 mg Capsule 50 MG PO ×3 (08:09→21:13)
[2024-04-12] MEDS: propranolol 20 mg Tablet PO ×3 (08:10→21:13)
[2024-04-12] MEDS: pantoprazole DR 40 mg Tablet PO (08:10)
[2024-04-12] MEDS: pregabalin 100 mg Capsule PO ×2 (08:10→17:00)
[2024-04-12] MEDS: loratadine 10 mg Tablet PO (08:10)
[2024-04-12] MEDS: ibuprofen 600 mg Tablet PO ×2 (08:10→17:00)
[2024-04-12] MEDS: OXcarbazepine 300 mg Tablet PO ×2 (08:10→17:00)
[2024-04-12] MEDS: benztropine 1 mg Tablet 0.5 MG PO (08:10)
[2024-04-12] MEDS: cyclobenzaprine 10 mg Tablet 5 MG PO (08:11)
[2024-04-12] MEDS: nicotine 21 mg Patch 1 PATCH TRANSDERMA (08:11)
[2024-04-12 11:17] LABS: Glucose Point of Care 249 mg/dL (70-110)
[2024-04-12] MEDS: insulin lispro 100 unit/1 mL SUBCUT ×3 (11:34→21:13)
[2024-04-12] MEDS: OLANZapine 5 mg ODT PO (12:13)
[2024-04-12] MEDS: acetaminophen 325 mg Tablet 650 MG PO (12:13)
[2024-04-12 14:00] VITALS: BP 98/63; PULSE 69; RESP 18; TEMP 36.7; O2SAT 95
--- NOTE | 2024-04-12 14:48 | P.NPUPN_ITS ---
Subjective NPU 2 Subjective: Patient presents today reporting that she is going much better and is feeling very hopeful about her future now that the rehab is in view. She is focused on her recovery and trying to get things arranged for Wednesday including getting clothes and understanding the rules of the program. Staff report clear improvements in her affect and presentation on the unit. She denies any new problems or any side effects to the medication. Mental Status Exam 2 MSE Comments: This is an obese white female in hospital scrubs with adequate grooming and eye contact. No abnormal movements. Cooperative with exam in no acute distress. Speech was normal rate and volume. Mood was described as better and starting to feel optimistic about recovery and going to rehab on Wednesday, affect congruent. Thought process organized. Thought content: Patient denied suicidal or homicidal ideation, other delusions reported or noted, she denied any auditory or visual hallucinations. Attention and concentration were intact and memory appeared reliable but none formally tested. She is alert and oriented x 3. Insight and judgment appear improving and impulse control is limited but improving. Vitals/I&O/Wt Last Vital Signs Temp 98.5 F 04/12/24 06:00 Pulse 75 04/12/24 06:00 Resp 16 04/12/24 06:00 BP 110/69 04/12/24 06:00 Pulse Ox 96 04/12/24 06:00 O2 Del Method Room Air 04/12/24 06:00 04/11/24 04/12/24 04/12/24 22:59 06:59 14:59 Intake Total 360 / 720 Balance 360 / 720 Data NPU 04/07/24 21:00 04/07/24 21:00 A&P Assessment and plan (1) Unspecified psychosis: (2) Suicidal ideation: (3) Opioid dependence: (4) Alcohol dependence: (5) Major depressive disorder, recurrent episode, unspecified: (6) PTSD (post-traumatic stress disorder): Plan 43-year-old female with a history of opiate dependence and alcohol dependence along with depression admitted with suicidal ideation less than 24 hours after discharge with significant psychosocial stressors. The patient continues to report motivation to enter into inpatient substance abuse treatment. 1.? Engage patient in individual milieu and group therapy. 2.? Recommend sober living treatment at the highest level of care to which the patient is willing to commit 3.??Continue Haldol, trileptal, lyrica, wellbutrin as prescribed. 4.??Continue TO-15 minute checks? Involuntary Hold Information 2 96 Hour Hold: 96 Hour Involuntary Admission: Yes Other Hold: Hold End Date: 04/13/24 Attestations NPU 2 Medical Necessity Statement*: Inpatient hospitalization is medically necessary and the clinically appropriate intervention at this time.? We will monitor/initiate medications and make changes as indicated.?The patient?s likely length of stay is 5 days. Coding Level of Care Code Acute Code for Chg Fwd Diagnoses Unspecified psychosis F29 Suicidal ideation R45.851 Opioid dependence F11.20 Alcohol dependence F10.20 Major depressive disorder, recurrent episode, unspecified F33.9 PTSD (post-traumatic stress disorder) F43.10
[2024-04-12] MEDS: albuterol 2.5 mg/3 mL Neb INHALATION (14:55)
[2024-04-12 14:57] VITALS: PULSE 78; RESP 18; O2SAT 98
[2024-04-12] MEDS: insulin glargine 100 units/1 mL 38 UNIT SUBCUT (16:32)
[2024-04-12 17:02] LABS: Glucose Point of Care 228 mg/dL (70-110)
[2024-04-12 20:02] VITALS: BP 143/91; PULSE 64; RESP 18; TEMP 36.6; O2SAT 98
[2024-04-12 20:11] LABS: Glucose Point of Care 304 mg/dL (70-110)
[2024-04-12] MEDS: prazosin 1 mg Capsule 4 MG PO (21:11)
[2024-04-12] MEDS: doxepin 50 mg Capsule PO (21:12)
[2024-04-12] MEDS: haloperidol 5 mg Tablet PO (21:13)
[2024-04-13 00:16] LABS: Glucose Point of Care 43 mg/dL (70-110)
--- NOTE | 2024-04-13 00:24 | PC.NURSE ---
Patient came to nurses station requesting that her blood sugar be checked. Her acc-u-check was 43. she was given two apple juice with two packs of sugar, two containers of peanut butter and she requested a sandwich. She was not C/O any low sugar S/S but I feel like my sugar might be low . after snacks she said she felt fine now . Will recheck BS to be sure. See Glucose flow sheet.
[2024-04-13 00:46] LABS: Glucose Point of Care 66 mg/dL (70-110)
[2024-04-13 05:59] VITALS: BP 98/66; PULSE 79; RESP 16; TEMP 36.9; O2SAT 98
[2024-04-13 06:59] LABS: Glucose Point of Care 160 mg/dL (70-110)
[2024-04-13] MEDS: insulin lispro 100 unit/1 mL SUBCUT ×4 (08:02→20:45)
[2024-04-13] MEDS: loratadine 10 mg Tablet PO (08:03)
[2024-04-13] MEDS: pregabalin 100 mg Capsule PO ×2 (08:03→17:30)
[2024-04-13] MEDS: pantoprazole DR 40 mg Tablet PO (08:03)
[2024-04-13] MEDS: nicotine 21 mg Patch 1 PATCH TRANSDERMA (08:03)
[2024-04-13] MEDS: OXcarbazepine 300 mg Tablet PO ×2 (08:04→17:30)
[2024-04-13] MEDS: benztropine 1 mg Tablet 0.5 MG PO (08:04)
[2024-04-13] MEDS: cyclobenzaprine 10 mg Tablet 5 MG PO (08:05)
[2024-04-13] MEDS: hyDROXYzine 25 mg Capsule 50 MG PO ×2 (08:11→15:17)
[2024-04-13] MEDS: acetaminophen 325 mg Tablet 650 MG PO (08:12)
[2024-04-13 08:19] VITALS: BP 102/62
[2024-04-13 11:19] LABS: Glucose Point of Care 144 mg/dL (70-110)
--- NOTE | 2024-04-13 11:20 | PC.NURSE ---
Patient's blood pressure low this am and 102/62 this am. No propanolol given. Blood sugar at 160, 2 units given. Patient dropped over night. Was advised to hold per night nurse.
[2024-04-13] MEDS: OLANZapine 5 mg ODT PO ×2 (12:08→19:41)
[2024-04-13 14:00] VITALS: BP 110/77; PULSE 83; RESP 15; TEMP 36.8; O2SAT 98
[2024-04-13] MEDS: propranolol 20 mg Tablet PO ×2 (15:17→20:45)
[2024-04-13] MEDS: ibuprofen 600 mg Tablet PO (15:17)
--- NOTE | 2024-04-13 15:47 | P.CONIM_ITS ---
Providers/Reason For Consult 2 Consulting Physician/Specialty*: Hospitalist Reason for Consult*: Hypoglycemia on insulin Attending Physician: Dereck Benavidez MD History of Present Illness History of Present Illness Andreea Clemente is a 43 year old female with history of type 1 diabetes mellitus admitted at [facility] on 04/08 with concerns for suicidal ideation. Since admission she was continued on her home dose of 38 units of Lantus, 18 units of Premeal Humalog along with sliding scale. As per the review she has been getting her dose of Lantus regularly, had not received her scheduled dose of Humalog since 04/11 evening and has received 22 units of sliding scale. Today morning she had hypoglycemia with blood sugars dropping down to 43 last night. She also had hypoglycemia with blood sugar dropping down to 54 on 04/11. Medicine consulted for insulin management in setting of type 1 diabetes mellitus and hypoglycemia Review of Systems 2 General: Reports: 10 or more systems reviewed and unremarkable except in HPI and below Const: Denies: fever(s), chills, body aches, change in appetite, change in weight, malaise, night sweats, diaphoresis, change in sleep pattern, daytime sleepiness or snoring Eyes: Denies: change in vision, blurry vision, photophobia, eye discomfort or eye discharge ENMT: Denies: throat pain, enlarged tonsils, hoarseness, mouth pain, oral sores, dry mouth, tinnitus, nasal congestion or post nasal drip Card: Denies: chest pain, palpitations, irregular heart rhythm, edema, swelling of feet/ankles, lightheadedness, syncope, pre-syncope, dyspnea on exertion, orthopnea, leg pain with exertion or acrocyanosis Resp: Denies: dyspnea, productive cough, non-productive cough, wheezing, stridor, pain on inspiration, change in phlegm color, hemoptysis or chest congestion GI: Denies: abdominal pain, nausea, vomiting, hematemesis, coffee ground emesis, dysphagia, heartburn, diarrhea, constipation, bloating, GI cramping, change in bowel habits, pain on defecation, hematochezia or melena : Denies: flank pain, dysuria, urinary frequency, urinary urgency, urinary hesitancy, nocturia or hematuria Musc: Denies: neck pain, back pain, extremity pain, joint pain, joint swelling, joint redness, joint stiffness or limited range of motion Neuro: Denies: headache(s), numbness in extremities, weakness in extremities, sensory changes, lack of coordination, difficulty walking, frequent falls, dizziness, vertigo, confusion, Slurred speech present, difficulty communicating thoughts or seizure-like activity Psych: Denies: anxiety, depression, mood swings, panic attacks, hopelessness or irritability Endo: Denies: polyuria, polydipsia, tired all the time, cold intolerance, excessive sweating, flushing or heat intolerance Payam/Lymph: Denies: easy bruising or easy bleeding All/Imm: Denies: tongue swelling, facial swelling or acute wheezing Medications/Allergies Home Medications Medication Instructions Recorded Confirmed Last Taken Type albuterol sulfate 90 mcg/actuation 2 inh inhalation Q4H PRN SOB 02/03/24 04/07/24 Unknown History aerosol inhaler (Ventolin HFA) benztropine 0.5 mg tablet 0.5 mg PO DAILY 02/03/24 04/07/24 02/02/24 History cyclobenzaprine 5 mg tablet 5 mg PO DAILY 02/03/24 04/07/24 02/02/24 History doxepin 50 mg capsule 50 mg PO BEDTIME 02/03/24 04/07/24 02/02/24 History ibuprofen 800 mg tablet 800 mg PO DAILY PRN Pain, Moderate 02/03/24 04/07/24 02/02/24 History insulin glargine 100 unit/mL (3 38 unit SUBCUT DAILY 02/03/24 04/07/24 02/02/24 History mL) subcutaneous pen (Lantus Solostar U-100 Insulin) insulin lispro 100 unit/mL 18 unit SUBCUT TID 02/03/24 04/07/24 Unknown History subcutaneous pen loratadine 10 mg tablet 10 mg PO DAILY 02/03/24 04/07/24 Unknown History nicotine 21 mg/24 hr daily 1 patch transdermal DAILY 02/03/24 04/07/24 Unknown History transdermal patch omeprazole 40 mg capsule,delayed 40 mg PO DAILY 02/03/24 04/07/24 02/02/24 History release oxcarbazepine 300 mg tablet 300 mg PO BID 02/03/24 04/07/24 02/02/24 History prazosin 2 mg capsule 4 mg PO BEDTIME 02/03/24 04/07/24 02/02/24 History pregabalin 100 mg capsule 100 mg PO BID 02/03/24 04/07/24 02/02/24 History propranolol 20 mg tablet 20 mg PO TID 02/03/24 04/07/24 Unknown History cetirizine 10 mg tablet (Zyrtec) 10 mg PO DAILY 04/01/24 04/01/24 Unknown History diclofenac sodium 1 % topical gel 10 g topical TID PRN Muscle Pain 04/01/24 04/01/24 Unknown History (Voltaren Arthritis Pain) ibuprofen 800 mg tablet (IBU) 800 mg PO TID PRN Pain 04/01/24 04/01/24 Unknown History insulin lispro 100 unit/mL 18 unit SUBCUT TIDWMEAL 04/01/24 04/01/24 04/01/24 12:00 History subcutaneous pen (Humalog KwikPen 18 (U-100) Insulin) omeprazole 40 mg capsule,delayed 40 mg PO DAILY 04/01/24 04/01/24 Unknown History release propranolol 20 mg tablet 20 mg PO TID 04/01/24 04/01/24 Unknown History bupropion HCl 300 mg 24 hr tablet, 300 mg PO DAILY 30 days #30 tabs 04/07/24 Unknown Rx extended release bupropion HCl 300 mg 24 hr tablet, 300 mg PO DAILY 30 days #30 tabs 04/07/24 Unknown Rx extended release (Wellbutrin XL) cholecalciferol (vitamin D3) 125 5,000 unit PO DAILY #56 tabs 04/07/24 Unknown Rx mcg (5,000 unit) tablet (Vitamin D3) doxepin 25 mg capsule 25 mg PO BEDTIME 30 days #30 caps 04/07/24 Unknown Rx insulin glargine 100 unit/mL (3 13 unit (0.13 mL) SUBCUT QPM #15 mL 04/07/24 Unknown Rx mL) subcutaneous pen (Lantus Solostar U-100 Insulin) oxcarbazepine 300 mg tablet 300 mg PO BID 30 days #60 tabs 04/07/24 Unknown Rx (Trileptal) prazosin 2 mg capsule 4 mg (2 x 2 mg) PO QPM #30 caps 04/07/24 Unknown Rx pregabalin 100 mg capsule 100 mg PO BID 15 days #30 caps 04/07/24 Unknown Rx triamcinolone acetonide 0.5 % 1 applic topical BID PRN 04/07/24 Unknown Rx topical cream Irritation 15 days #15 grams Allergies Allergy/AdvReac Type Severity Reaction Status Date / Time aripiprazole [From Abilify] Allergy ADR/ALGY-Pa Verified 04/08/24 14:34 lpitations butorphanol [From Stadol] Allergy ADR/ALGY-Pa Verified 04/08/24 14:34 lpitations prednisone Allergy Unknown Verified 04/08/24 14:34 Current Medications Generic Name Dose Route Start Last Admin Trade Name Freq PRN Reason Stop Dose Admin Acetaminophen 650 mg 04/07/24 22:06 04/13/24 08:12 Acetaminophen 325 Mg Tablet PO 650 mg Q4H PRN Administration MILD PAIN Albuterol Sulfate 2.5 mg 04/07/24 23:15 04/12/24 14:55 Albuterol 2.5 Mg/3 Ml Neb INHALATION 2.5 mg Q4H PRN Administration SHORTNESS OF BREATH Benztropine Mesylate 1 mg 04/07/24 22:06 04/11/24 08:27 Benztropine 1 Mg Tablet PO 1 mg BID PRN Administration Mild Extrapyramidal symptoms Benztropine Mesylate 0.5 mg 04/08/24 09:00 04/13/24 08:04 Benztropine 1 Mg Tablet PO 0.5 mg DAILY ANNEMARIE Administration Cyclobenzaprine HCl 5 mg 04/08/24 09:00 04/13/24 08:05 Cyclobenzaprine 10 Mg Tablet PO 5 mg DAILY ANNEMARIE Administration Doxepin HCl 50 mg 04/07/24 22:51 04/12/24 21:12 Doxepin 50 Mg Capsule PO 50 mg BEDTIME ANNEMARIE Administration Haloperidol 5 mg 04/07/24 22:06 04/12/24 21:13 Haloperidol 5 Mg Tablet PO 5 mg Q4H PRN Administration AGITATION Haloperidol 4 mg 04/09/24 21:00 04/12/24 21:15 Haloperidol 1 Mg Tablet PO Not Given 2100 ANNEMARIE Hydroxyzine Pamoate 50 mg 04/07/24 22:06 04/13/24 15:17 Hydroxyzine 25 Mg Capsule PO 50 mg Q6H PRN Administration ANXIETY Ibuprofen 600 mg 04/07/24 22:06 04/13/24 15:17 Ibuprofen 600 Mg Tablet PO 600 mg Q6H PRN Administration MODERATE PAIN Insulin Human Lispro 0 unit 04/07/24 23:22 04/13/24 12:00 Insulin Lispro 100 Unit/1 Ml SUBCUT 2 unit WM&BEDTIME ANNEMARIE Administration Protocol Loratadine 10 mg 04/08/24 09:00 04/13/24 08:03 Loratadine 10 Mg Tablet PO 10 mg DAILY ANNEMARIE Administration Nicotine 1 patch 04/08/24 09:00 04/13/24 08:03 Nicotine 21 Mg Patch TRANSDERMA 1 patch DAILY ANNEMARIE Administration Nicotine Polacrilex 4 mg 04/08/24 03:48 04/09/24 21:00 Nicotine 4 Mg Lozenge MUCOUS MEM 4 mg Q2H PRN Administration NICOTINE CRAVINGS Olanzapine 5 mg 04/07/24 22:06 04/13/24 12:08 Olanzapine 5 Mg Odt PO 5 mg Q4H PRN Administration Agitation/Psychosis Ondansetron HCl 4 mg 04/07/24 22:06 04/09/24 21:01 Ondansetron 4 Mg Tablet PO 4 mg Q6H PRN Administration NAUSEA AND VOMITING Oxcarbazepine 300 mg 04/08/24 09:00 04/13/24 08:04 Oxcarbazepine 300 Mg Tablet PO 300 mg BID ANNEMARIE Administration Pantoprazole Sodium 40 mg 04/08/24 09:00 04/13/24 08:[address] 40 Mg Tablet PO 40 mg DAILY ANNEMARIE Administration Prazosin HCl 4 mg 04/07/24 23:50 04/12/24 21:11 Prazosin 1 Mg Capsule PO 4 mg BEDTIME ANNEMARIE Administration Pregabalin 100 mg 04/08/24 09:00 04/13/24 08:03 Pregabalin 100 Mg Capsule PO 100 mg BID ANNEMARIE Administration Propranolol HCl 20 mg 04/07/24 22:51 04/13/24 15:17 Propranolol 20 Mg Tablet PO 20 mg TID ANNEMARIE Administration PFSH Acute 2 PFSH: Medical History (Updated 04/14/24 @ 13:11 by Chad Pena MD) Opioid dependence Alcohol dependence Major depressive disorder, recurrent episode, unspecified PTSD (post-traumatic stress disorder) Diabetes mellitus Vitals/I&O/Wt Last Vital Signs Temp 98.2 F 04/13/24 14:00 Pulse 83 04/13/24 14:00 Resp 15 04/13/24 14:00 BP 110/77 04/13/24 14:00 Pulse Ox 98 04/13/24 14:00 O2 Del Method Room Air 04/13/24 14:00 04/13/24 04/13/24 04/13/24 06:59 14:59 22:59 Intake Total 240 / 240 Balance 240 / 240 Physical Exam 2 Narrative: General: No acute distress, AO x3 HEENT: PERRLA, pupils bilaterally equal and reactive Chest: Normal vesicular breath sounds, no added sounds, equal good air entry bilaterally CVS: S1-S2 regular, no murmurs, no tachycardia, no gallops, no rubs Abdomen: Soft, nontender, no organomegaly, bowel sounds present Neuro: No focal deficits, no facial deformity, AO x3, power 5/5 in all limbs Data 04/13/24 18:46 04/13/24 18:46 A&P Assessment and plan (1) Hypoglycemia: Hypoglycemia protocol. (2) Type 1 diabetes mellitus: As per the documentation she takes Lantus 38 units 1 time a day and 18 units Humalog 3 times a day. Check A1c. For now we will stop on scheduled 18 units Humalog. Change Lantus to 20 units daily. Continue with insulin sliding scale low-dose protocol. Recheck CBC, CMP. Continue with carb consistent diet. (3) PTSD (post-traumatic stress disorder): (4) Suicidal ideation: (5) Polysubstance abuse: Plan Thank you for involving us in care of Ms. Clemente. Will continue to follow. Consult Attestations 2 Medical Necessity Statement: As per primary team. Diagnoses Hypoglycemia E16.2 Type 1 diabetes mellitus E10.9 PTSD (post-traumatic stress disorder) F43.10 Suicidal ideation R45.851 Polysubstance abuse F19.10
[2024-04-13 16:50] LABS: Glucose Point of Care 255 mg/dL (70-110)
[2024-04-13] MEDS: insulin glargine 100 units/1 mL 20 UNIT SUBCUT (17:30)
--- NOTE | 2024-04-13 17:37 | P.NPUPN_ITS ---
Subjective NPU 2 Subjective: Patient presented today reporting that she is doing fine. We had a lengthy conversation about her insulin management and concerns about her current doses. We discussed the risks, benefits and alternatives of getting a hospitalist consult and she understood and agreed to proceed as is documented in this note. She continued to deny any side effects to medications and was hopeful that everything went smoothly for discharge on Wednesday. Mental Status Exam 2 MSE Comments: This is an obese white female in hospital scrubs with adequate grooming and eye contact. No abnormal movements. Cooperative with exam in no acute distress. Speech was normal rate and volume. Mood was described as better and starting to feel optimistic about recovery and going to rehab on Wednesday, affect congruent. Thought process organized. Thought content: Patient denied suicidal or homicidal ideation, other delusions reported or noted, she denied any auditory or visual hallucinations. Attention and concentration were intact and memory appeared reliable but none formally tested. She is alert and oriented x 3. Insight and judgment appear improving and impulse control is limited but improving. Vitals/I&O/Wt Last Vital Signs Temp 98.2 F 04/13/24 14:00 Pulse 83 04/13/24 14:00 Resp 15 04/13/24 14:00 BP 110/77 04/13/24 14:00 Pulse Ox 98 04/13/24 14:00 O2 Del Method Room Air 04/13/24 14:00 Data NPU 04/13/24 18:46 04/13/24 18:46 A&P Assessment and plan (1) Unspecified psychosis: Plan 43-year-old female with a history of opiate dependence and alcohol dependence along with depression admitted with suicidal ideation less than 24 hours after discharge with significant psychosocial stressors. The patient continues to report motivation to enter into inpatient substance abuse treatment. 1.? Engage patient in individual milieu and group therapy. 2.? Recommend sober living treatment at the highest level of care to which the patient is willing to commit 3.??Continue Haldol, trileptal, lyrica, wellbutrin as prescribed. 4.??Continue TO-15 minute checks? 5. Obtain hospitalist consult for insulin management. Involuntary Hold Information 2 96 Hour Hold: 96 Hour Involuntary Admission: Yes Other Hold: Hold End Date: 04/13/24 Attestations NPU 2 Medical Necessity Statement*: Inpatient hospitalization is medically necessary and the clinically appropriate intervention at this time.? We will monitor/initiate medications and make changes as indicated.?The patient?s likely length of stay is 4 days. Coding Level of Care Code Acute Code for Chg Fwd Diagnoses Unspecified psychosis F29
[2024-04-13 18:58] LABS: Basophils % 0.6 %; Eosinophils # 0.3 10^3/uL (0.0-0.8); Eosinophils % 3.8 %; Hematocrit 39.5 % (36-47); Mean Corpuscular HGB Conc 32.9 g/dL (30-55); Mean Corpuscular Hemoglobin 29.1 pg (27-33); Mean Corpuscular Volume 88.4 fl (85-98); Mean Platelet Volume 8.9 fL (7.4-10.4); Monocytes # 0.5 10^3/uL (0.2-0.9); Monocytes % 6.6 %; Neutrophils # 3.35 10^3/uL (1.8-7.7); Neutrophils % 46.7 %; Nucleated Red Blood Cells % 0 %; Platelet Count 274 10^3/cmm (157-399); Red Blood Count 4.47 10^6/uL (3.85-5.65); Red Cell Distribution Width 14.1 % (12.1-15.1); White Blood Count 7.16 10^3/uL (3.29-11.43)
[2024-04-13 19:41] LABS: Slide Review Slide Review Perform
[2024-04-13 19:50] LABS: Glucose Point of Care 297 mg/dL (70-110)
[2024-04-13 19:51] LABS: Alanine Aminotransferase 18 U/L (0-33); Albumin Level 3.7 g/dL (3.5-5.2); Alkaline Phosphatase 102 U/L (35-105); Anion Gap 16.5 (5-19); Aspartate Amino Transferase 16 U/L (0-32); Blood Urea Nitrogen 13 mg/dL (6-20); Calcium 8.9 mg/dL (8.5-10.5); Carbon Dioxide 24 mmol/L (22-29); Chloride 95 mmol/L (98-107); Creatinine Clr Calc Pharmacy 137.7028; Globulin 3.1 g/dL (1.3-4.6); Glomerular Filtration Rate 92.2 mL/min (90-130); Glucose 282 mg/dL (65-115); Iron 49 ug/dL (37-145); Osmolality Calculated 282 mOsm/kg (285-295); Percent Saturation 15.6 % (20-50); Potassium 4.5 mmol/L (3.5-5.1); Sodium 131 mmol/L (136-145); Total Bilirubin 0.2 mg/dL (0.15-1.2); Total Iron Binding Capacity 314 mcg/dl; Total Protein 6.8 g/dL (6.6-8.7); Unsaturated Iron Binding 265 ug/dL (112-347)
[2024-04-13 20:18] LABS: Estmated Average Glucose 206; Hemoglobin A1C 8.8 % (4.0-6.0)
[2024-04-13] MEDS: doxepin 50 mg Capsule PO (20:45)
[2024-04-13] MEDS: prazosin 1 mg Capsule 4 MG PO (20:45)
[2024-04-13] MEDS: haloperidol 5 mg Tablet PO (20:45)
[2024-04-13 22:00] VITALS: BP 107/75; PULSE 69; RESP 16; TEMP 37.2; O2SAT 98
[2024-04-13 23:14] LABS: Glucose Point of Care 111 mg/dL (70-110)
[2024-04-14 06:00] VITALS: BP 94/62; PULSE 66; RESP 16; TEMP 36.6; O2SAT 93
[2024-04-14 07:12] LABS: Glucose Point of Care 295 mg/dL (70-110)
[2024-04-14] MEDS: insulin lispro 100 unit/1 mL SUBCUT ×4 (07:50→21:54)
[2024-04-14] MEDS: pantoprazole DR 40 mg Tablet PO (08:39)
[2024-04-14] MEDS: hyDROXYzine 25 mg Capsule 50 MG PO ×3 (08:39→21:53)
[2024-04-14] MEDS: ibuprofen 600 mg Tablet PO (08:39)
[2024-04-14] MEDS: OXcarbazepine 300 mg Tablet PO ×2 (08:39→17:19)
[2024-04-14] MEDS: benztropine 1 mg Tablet 0.5 MG PO (08:39)
[2024-04-14] MEDS: nicotine 21 mg Patch 1 PATCH TRANSDERMA (08:39)
[2024-04-14] MEDS: cyclobenzaprine 10 mg Tablet 5 MG PO (08:40)
[2024-04-14] MEDS: loratadine 10 mg Tablet PO (08:40)
[2024-04-14] MEDS: pregabalin 100 mg Capsule PO ×2 (08:40→17:19)
--- NOTE | 2024-04-14 08:57 | PC.NURSE ---
BP low, 94/62. Propranolol at 0900 held.
[2024-04-14 11:02] LABS: Glucose Point of Care 145 mg/dL (70-110)
[2024-04-14] MEDS: acetaminophen 325 mg Tablet 650 MG PO (12:03)
[2024-04-14] MEDS: OLANZapine 5 mg ODT PO ×2 (12:03→21:53)
--- NOTE | 2024-04-14 13:13 | P.PN_ITS ---
Subjective 2 Subjective: No acute events overnight. Blood sugars are better controlled. No further hypoglycemia. Vitals/I&O/Wt Last Vital Signs Temp 97.9 F 04/14/24 06:00 Pulse 66 04/14/24 06:00 Resp 16 04/14/24 06:00 BP 94/62 04/14/24 06:00 Pulse Ox 93 04/14/24 06:00 O2 Del Method Room Air 04/14/24 06:00 04/13/24 04/14/24 04/14/24 22:59 06:59 14:59 Intake Total 240 / 480 480 / 480 Balance 240 / 480 480 / 480 Physical Exam 2 Narrative: General: No acute distress, AO x3 HEENT: PERRLA, pupils bilaterally equal and reactive Chest: Normal vesicular breath sounds, no added sounds, equal good air entry bilaterally CVS: S1-S2 regular, no murmurs, no tachycardia, no gallops, no rubs Abdomen: Soft, nontender, no organomegaly, bowel sounds present Neuro: No focal deficits, no facial deformity, AO x3, power 5/5 in all limbs Data 04/13/24 18:46 04/13/24 18:46 A&P Assessment and plan (1) Hypoglycemia: Hypoglycemia protocol. (2) Type 1 diabetes mellitus: As per the documentation she takes Lantus 38 units 1 time a day and 18 units Humalog 3 times a day. A1c 8.8. Continue with Lantus 20 units, insulin sliding scale moderate dose protocol. Depending on the insulin requirement next 24 hours will dose Lantus accordingly. Carb consistent diet. (3) PTSD (post-traumatic stress disorder): (4) Suicidal ideation: (5) Polysubstance abuse: Plan Thank you for involving us in care of Ms. Clemente. Will continue to follow. Care discussed with detail with patient's RN over the phone. Please call back with any questions. Attestations 2 Medical Necessity Statement*: As per primary team. Diagnoses Hypoglycemia E16.2 Type 1 diabetes mellitus E10.9 PTSD (post-traumatic stress disorder) F43.10 Suicidal ideation R45.851 Polysubstance abuse F19.10
[2024-04-14 14:00] VITALS: BP 114/79; PULSE 73; RESP 17; TEMP 37.1; O2SAT 95
[2024-04-14] MEDS: propranolol 20 mg Tablet PO ×2 (15:09→21:52)
[2024-04-14 15:15] VITALS: PULSE 74; RESP 16; O2SAT 96
--- NOTE | 2024-04-14 15:29 | P.NPUPN_ITS ---
Subjective NPU 2 Subjective: Patient presented today reporting that she is feeling good. She got the clothing situation arranged and also has found out different options to assist her if any clothing issues come about. She reports she is excited about going and is looking forward to continuing her during her recovery. She denied any side effects to the medication. Mental Status Exam 2 MSE Comments: This is an obese white female in hospital scrubs with adequate grooming and eye contact. No abnormal movements. Cooperative with exam in no acute distress. Speech was normal rate and volume. Mood was described as better and starting to feel optimistic about recovery and going to rehab on Wednesday, affect congruent. Thought process organized. Thought content: Patient denied suicidal or homicidal ideation, other delusions reported or noted, she denied any auditory or visual hallucinations. Attention and concentration were intact and memory appeared reliable but none formally tested. She is alert and oriented x 3. Insight and judgment appear improving and impulse control is limited but improving. Vitals/I&O/Wt Last Vital Signs Temp 98.7 F 04/14/24 14:00 Pulse 74 04/14/24 15:15 Resp 16 04/14/24 15:15 BP 114/79 04/14/24 14:00 Pulse Ox 96 04/14/24 15:15 O2 Del Method Room Air 04/14/24 15:15 04/14/24 04/14/24 04/14/24 06:59 14:59 22:59 Intake Total 480 / 480 Balance 480 / 480 Data NPU 04/13/24 18:46 04/13/24 18:46 A&P Assessment and plan (1) Unspecified psychosis: Plan 43-year-old female with a history of opiate dependence and alcohol dependence along with depression admitted with suicidal ideation less than 24 hours after discharge with significant psychosocial stressors. The patient continues to report motivation to enter into inpatient substance abuse treatment. 1.? Engage patient in individual milieu and group therapy. 2.? Recommend sober living treatment at the highest level of care to which the patient is willing to commit 3.??Continue Haldol, trileptal, lyrica, wellbutrin as prescribed. 4.??Continue TO-15 minute checks? 5. Obtain hospitalist consult for insulin management. Appreciate hospitalist consult and will follow directions as indicated. Will need to have their final formulation by tomorrow morning likely to make sure we can get medication for discharge on Wednesday. Involuntary Hold Information 2 96 Hour Hold: 96 Hour Involuntary Admission: Yes Other Hold: Hold End Date: 04/13/24 Attestations NPU 2 Medical Necessity Statement*: Inpatient hospitalization is medically necessary and the clinically appropriate intervention at this time.? We will monitor/initiate medications and make changes as indicated.?The patient?s likely length of stay is 3 days. Coding Level of Care Code Acute Code for Chg Fwd Diagnoses Unspecified psychosis F29
[2024-04-14 17:04] LABS: Glucose Point of Care 385 mg/dL (70-110)
[2024-04-14] MEDS: insulin glargine 100 units/1 mL 20 UNIT SUBCUT (17:19)
[2024-04-14 20:48] LABS: Glucose Point of Care 236 mg/dL (70-110)
[2024-04-14] MEDS: prazosin 1 mg Capsule 4 MG PO (21:51)
[2024-04-14] MEDS: doxepin 50 mg Capsule PO (21:52)
[2024-04-14 22:00] VITALS: BP 121/86; PULSE 71; RESP 16; TEMP 36.8; O2SAT 96
[2024-04-15 06:00] VITALS: BP 91/66; PULSE 60; RESP 15; TEMP 36.4; O2SAT 93
[2024-04-15 07:11] LABS: Glucose Point of Care 101 mg/dL (70-110)
[2024-04-15] MEDS: pregabalin 100 mg Capsule PO ×2 (08:09→17:29)
[2024-04-15] MEDS: benztropine 1 mg Tablet 0.5 MG PO (08:09)
[2024-04-15] MEDS: propranolol 20 mg Tablet PO (08:09)
[2024-04-15] MEDS: loratadine 10 mg Tablet PO (08:09)
[2024-04-15] MEDS: hyDROXYzine 25 mg Capsule 50 MG PO ×2 (08:09→20:28)
[2024-04-15] MEDS: OXcarbazepine 300 mg Tablet PO ×2 (08:09→17:29)
[2024-04-15] MEDS: cyclobenzaprine 10 mg Tablet 5 MG PO (08:09)
[2024-04-15] MEDS: pantoprazole DR 40 mg Tablet PO (08:09)
[2024-04-15] MEDS: nicotine 21 mg Patch 1 PATCH TRANSDERMA (08:10)
[2024-04-15] MEDS: acetaminophen 325 mg Tablet 650 MG PO ×2 (08:10→20:44)
[2024-04-15 11:31] LABS: Glucose Point of Care 380 mg/dL (70-110)
[2024-04-15] MEDS: insulin lispro 100 unit/1 mL SUBCUT ×2 (11:35→17:29)
--- NOTE | 2024-04-15 13:04 | P.NPUPN_ITS ---
Subjective NPU 2 Subjective: Patient presented today reporting that things are going fine. She reports that she has a little anxiety about making sure that the clothing and little things work out but overall she is ecstatic about getting this bed and having a plan for treatment moving forward. She reports her medications are working fine and that even the adjustments in her insulin by the hospitalist have her doing better. She denied any side effects of the medication. Mental Status Exam 2 MSE Comments: This is an obese white female in hospital scrubs with adequate grooming and eye contact. No abnormal movements. Cooperative with exam in no acute distress. Speech was normal rate and volume. Mood was described as better and starting to feel optimistic about recovery and going to rehab on Wednesday, affect congruent. Thought process organized. Thought content: Patient denied suicidal or homicidal ideation, other delusions reported or noted, she denied any auditory or visual hallucinations. Attention and concentration were intact and memory appeared reliable but none formally tested. She is alert and oriented x 3. Insight and judgment appear improving and impulse control is limited but improving. Vitals/I&O/Wt Last Vital Signs Temp 97.6 F 04/15/24 06:00 Pulse 60 04/15/24 06:00 Resp 15 04/15/24 06:00 BP 91/66 04/15/24 06:00 Pulse Ox 93 04/15/24 06:00 O2 Del Method Room Air 04/15/24 06:00 04/14/24 04/15/24 04/15/24 22:59 06:59 14:59 Intake Total 240 / 720 Balance 240 / 720 Data NPU 04/13/24 18:46 04/13/24 18:46 A&P Assessment and plan (1) Unspecified psychosis: Plan 43-year-old female with a history of opiate dependence and alcohol dependence along with depression admitted with suicidal ideation less than 24 hours after discharge with significant psychosocial stressors. The patient continues to report motivation to enter into inpatient substance abuse treatment. 1.? Engage patient in individual milieu and group therapy. 2.? Recommend sober living treatment at the highest level of care to which the patient is willing to commit 3.??Continue Haldol, trileptal, lyrica, wellbutrin as prescribed. 4.??Continue TO-15 minute checks? 5. Obtain hospitalist consult for insulin management. Appreciate hospitalist consult and will follow directions as indicated. Will need to have their final formulation by Wednesday morning likely to make sure we can send the right medication to her pharmacy on Wednesday when she leaves between 730 and 8 AM. Involuntary Hold Information 2 96 Hour Hold: 96 Hour Involuntary Admission: Yes Other Hold: Hold End Date: 04/13/24 Attestations NPU 2 Medical Necessity Statement*: Inpatient hospitalization is medically necessary and the clinically appropriate intervention at this time.? We will monitor/initiate medications and make changes as indicated.?The patient?s likely length of stay is 2 days. Coding Level of Care Code Acute Code for Chg Fwd Diagnoses Unspecified psychosis F29
--- NOTE | 2024-04-15 13:36 | P.PN_ITS ---
Subjective 2 Subjective: No acute vents overnight. Blood sugar tomorrow morning found to be 100. Otherwise blood sugars have been well-controlled. As per charting blood blood pressure today morning down to 91 systolic blood pressure seems to be asymptomatic. Vitals/I&O/Wt Last Vital Signs Temp 97.6 F 04/15/24 06:00 Pulse 60 04/15/24 06:00 Resp 15 04/15/24 06:00 BP 91/66 04/15/24 06:00 Pulse Ox 93 04/15/24 06:00 O2 Del Method Room Air 04/15/24 06:00 04/14/24 04/15/24 04/15/24 22:59 06:59 14:59 Intake Total 240 / 720 Balance 240 / 720 Physical Exam 2 Narrative: General: No acute distress, AO x3 HEENT: PERRLA, pupils bilaterally equal and reactive Chest: Normal vesicular breath sounds, no added sounds, equal good air entry bilaterally CVS: S1-S2 regular, no murmurs, no tachycardia, no gallops, no rubs Abdomen: Soft, nontender, no organomegaly, bowel sounds present Neuro: No focal deficits, no facial deformity, AO x3, power 5/5 in all limbs Data 04/13/24 18:46 04/13/24 18:46 A&P Assessment and plan (1) Hypoglycemia: Hypoglycemia protocol. (2) Type 1 diabetes mellitus: As per the documentation she takes Lantus 38 units 1 time a day and 18 units Humalog 3 times a day. A1c 8.8. Continue with Lantus 20 units, insulin sliding scale moderate dose protocol. Depending on the insulin requirement next 24 hours will dose Lantus accordingly. Carb consistent diet. (3) PTSD (post-traumatic stress disorder): (4) Suicidal ideation: (5) Polysubstance abuse: Plan Plan for the day: Change insulin sliding scale to premeals. Will hold bedtime Humalog. Change Lantus to 25 units nightly. Change timing of Lantus from around supper to bedtime. Continue with hypoglycemia protocol. Goal blood pressure less than 140/90 mmhg with mean over 65. Change dose of propranolol to 10 mg twice daily. Monitor blood pressures. Thank you for involving us in care of Ms. Clemente. Will continue to follow. Care discussed with detail with patient's RN over the phone. Please call back with any questions. Attestations 2 Medical Necessity Statement*: As per primary team. Diagnoses Hypoglycemia E16.2 Type 1 diabetes mellitus E10.9 PTSD (post-traumatic stress disorder) F43.10 Suicidal ideation R45.851 Polysubstance abuse F19.10
[2024-04-15 14:00] VITALS: BP 114/81; PULSE 81; RESP 15; TEMP 37; O2SAT 97
[2024-04-15] MEDS: propranolol 20 mg Tablet 10 MG PO ×2 (14:28→20:28)
[2024-04-15] MEDS: OLANZapine 5 mg ODT PO (14:35)
--- NOTE | 2024-04-15 14:36 | PC.NURSE ---
PT C/O OF INCREASED ANXIETY FREQUENTLY THROUGHOUT THE DAY. PT HAS RECEIVED VISTARIL 50 MG ORDERED FOR ANXIETY AND IT WAS EFFECTIVE FOR A SHORT TIME. PT THEN RECEIVED SCHEDULED PROPANOLOL 10 MG AT 1500 MED PASS, PT IMMEDIATELY CAME TO NURSES STATION REQUESTING SOMETHING ELSE FOR ANXIETY. PT RECEIVED ZYDIS 5 MG ORDERED FOR INCREASED ANXIETY. SUPPORT VOICED.
[2024-04-15 17:00] LABS: Glucose Point of Care 248 mg/dL (70-110)
[2024-04-15 20:20] LABS: Glucose Point of Care 240 mg/dL (70-110)
[2024-04-15] MEDS: prazosin 1 mg Capsule 4 MG PO (20:28)
[2024-04-15] MEDS: doxepin 50 mg Capsule PO (20:28)
[2024-04-15] MEDS: haloperidol 1 mg Tablet 4 MG PO (20:28)
[2024-04-15] MEDS: insulin glargine 100 units/1 mL 25 UNIT SUBCUT (20:29)
[2024-04-15] MEDS: nicotine 4 mg lozenge MUCOUS MEM (20:44)
[2024-04-15 22:00] VITALS: BP 112/77; PULSE 83; RESP 18; TEMP 36.6; O2SAT 98
[2024-04-16 06:00] VITALS: BP 96/70; PULSE 65; RESP 15; TEMP 36.6; O2SAT 95
[2024-04-16 07:21] LABS: Glucose Point of Care 238 mg/dL (70-110)
[2024-04-16] MEDS: hyDROXYzine 25 mg Capsule 50 MG PO ×3 (08:00→20:22)
[2024-04-16] MEDS: benztropine 1 mg Tablet PO (08:00)
[2024-04-16] MEDS: OXcarbazepine 300 mg Tablet PO ×2 (08:00→16:57)
[2024-04-16] MEDS: acetaminophen 325 mg Tablet 650 MG PO ×2 (08:00→20:22)
[2024-04-16] MEDS: loratadine 10 mg Tablet PO (08:01)
[2024-04-16] MEDS: pantoprazole DR 40 mg Tablet PO (08:01)
[2024-04-16] MEDS: pregabalin 100 mg Capsule PO ×2 (08:01→16:57)
[2024-04-16] MEDS: cyclobenzaprine 10 mg Tablet 5 MG PO (08:01)
[2024-04-16] MEDS: nicotine 21 mg Patch 1 PATCH TRANSDERMA (08:01)
[2024-04-16] MEDS: insulin lispro 100 unit/1 mL SUBCUT ×3 (09:36→16:57)
--- NOTE | 2024-04-16 10:46 | P.NPUPN_ITS ---
Subjective NPU 2 Subjective: Patient presented today reporting that he is doing fine and just awaiting transport tomorrow morning. All medication arrangements have been made as she continues to endorse a commitment to her recovery and going to programming for as long as it takes to get things back on track. She denies any side effects or medication. Mental Status Exam 2 MSE Comments: This is an obese white female in hospital scrubs with adequate grooming and eye contact. No abnormal movements. Cooperative with exam in no acute distress. Speech was normal rate and volume. Mood was described as better and starting to feel optimistic about recovery and going to rehab on Wednesday, affect congruent. Thought process organized. Thought content: Patient denied suicidal or homicidal ideation, other delusions reported or noted, she denied any auditory or visual hallucinations. Attention and concentration were intact and memory appeared reliable but none formally tested. She is alert and oriented x 3. Insight and judgment appear improving and impulse control is limited but improving. Vitals/I&O/Wt Last Vital Signs Temp 98 F 04/16/24 06:00 Pulse 65 04/16/24 06:00 Resp 15 04/16/24 06:00 BP 96/70 04/16/24 06:00 Pulse Ox 95 04/16/24 06:00 O2 Del Method Room Air 04/16/24 06:00 Weight last 48 hrs Weight 109.769 kg Data NPU 04/13/24 18:46 04/13/24 18:46 A&P Assessment and plan (1) Hypoglycemia: Hypoglycemia protocol. (2) Type 1 diabetes mellitus: As per the documentation she takes Lantus 38 units 1 time a day and 18 units Humalog 3 times a day. A1c 8.8. Continue with Lantus 20 units, insulin sliding scale moderate dose protocol. Depending on the insulin requirement next 24 hours will dose Lantus accordingly. Carb consistent diet. (3) PTSD (post-traumatic stress disorder): (4) Suicidal ideation: (5) Polysubstance abuse: Plan Plan for the day: Change insulin sliding scale to premeals. Will hold bedtime Humalog. Change Lantus to 25 units nightly. Change timing of Lantus from around supper to bedtime. Continue with hypoglycemia protocol. Goal blood pressure less than 140/90 mmhg with mean over 65. Change dose of propranolol to 10 mg twice daily. Monitor blood pressures. Thank you for involving us in care of Ms. Hill. Will continue to follow. Care discussed with detail with patient's RN over the phone. Please call back with any questions. Involuntary Hold Information 2 96 Hour Hold: 96 Hour Involuntary Admission: Yes Other Hold: Hold End Date: 04/13/24 Attestations NPU 2 Medical Necessity Statement*: Inpatient hospitalization is medically necessary and the clinically appropriate intervention at this time.? We will monitor/initiate medications and make changes as indicated.?The patient?s likely length of stay is 1 days. Coding Level of Care Code Acute Code for Chg Fwd Diagnoses Hypoglycemia E16.2 Type 1 diabetes mellitus E10.9 PTSD (post-traumatic stress disorder) F43.10 Suicidal ideation R45.851 Polysubstance abuse F19.10
[2024-04-16 12:00] LABS: Glucose Point of Care 171 mg/dL (70-110)
--- NOTE | 2024-04-16 12:06 | PC.NURSE ---
This nurse left note for Radha at [employer] [facility] [employer], about clothing.
[2024-04-16] MEDS: OLANZapine 5 mg ODT PO (12:10)
--- NOTE | 2024-04-16 13:41 | P.PN_ITS ---
Subjective 2 Subjective: No acute vents overnight. Has remained hemodynamically stable. Appreciate blood sugars. No hypoglycemia today. Appreciate insulin requirement in last 24 hours. Vitals/I&O/Wt Last Vital Signs Temp 98 F 04/16/24 06:00 Pulse 65 04/16/24 06:00 Resp 15 04/16/24 06:00 BP 96/70 04/16/24 06:00 Pulse Ox 95 04/16/24 06:00 O2 Del Method Room Air 04/16/24 06:00 Weight last 48 hrs Weight 109.769 kg Physical Exam 2 Narrative: General: No acute distress, AO x3 HEENT: PERRLA, pupils bilaterally equal and reactive Chest: Normal vesicular breath sounds, no added sounds, equal good air entry bilaterally CVS: S1-S2 regular, no murmurs, no tachycardia, no gallops, no rubs Abdomen: Soft, nontender, no organomegaly, bowel sounds present Neuro: No focal deficits, no facial deformity, AO x3, power 5/5 in all limbs Data 04/13/24 18:46 04/13/24 18:46 A&P Assessment and plan (1) Hypoglycemia: Hypoglycemia protocol. (2) Type 1 diabetes mellitus: As per the documentation she takes Lantus 38 units 1 time a day and 18 units Humalog 3 times a day. A1c 8.8. Continue with Lantus 20 units, insulin sliding scale moderate dose protocol. Depending on the insulin requirement next 24 hours will dose Lantus accordingly. Carb consistent diet. (3) PTSD (post-traumatic stress disorder): (4) Suicidal ideation: (5) Polysubstance abuse: Plan Plan for the day: Appreciate insulin requirements last 24 hours. No further hypoglycemia after discontinuing bedtime Humalog. Continue with insulin sliding scale premeals. Change Lantus to 30 units every night. Blood pressure stable. Can decrease propranolol to 10 mg 3 times a day. Patient does have significant psoriasis. Would benefit from follow-up with rheumatology. Discussed in detail with the patient. She is agreeable. Check DEEP panel. Medicine will sign off. Please call back with any questions. Patient can be discharged with her home dose of Lantus. Can change home dose of Humalog from 18 units 3 times daily to high-dose insulin sliding scale. Propanol can be discontinued or decreased to 10 mg 3 times a day as per psychiatric team. Patient takes propranolol for anxiety. Thank you for involving us in care of Ms. Clemente. Will continue to follow. Care discussed with detail with patient's RN over the phone. Please call back with any questions. Attestations 2 Medical Necessity Statement*: As per primary team. Diagnoses Hypoglycemia E16.2 Type 1 diabetes mellitus E10.9 PTSD (post-traumatic stress disorder) F43.10 Suicidal ideation R45.851 Polysubstance abuse F19.10
[2024-04-16 14:00] VITALS: BP 111/82; PULSE 83; RESP 18; TEMP 36.8; O2SAT 100
[2024-04-16] MEDS: propranolol 20 mg Tablet 10 MG PO (14:39)
[2024-04-16 16:50] LABS: Glucose Point of Care 234 mg/dL (70-110)
[2024-04-16 19:02] LABS: Glucose Point of Care 292 mg/dL (70-110)
[2024-04-16] MEDS: haloperidol 1 mg Tablet 4 MG PO (20:21)
[2024-04-16] MEDS: nicotine 4 mg lozenge MUCOUS MEM (20:22)
[2024-04-16] MEDS: prazosin 1 mg Capsule 4 MG PO (20:22)
[2024-04-16] MEDS: doxepin 50 mg Capsule PO (20:22)
[2024-04-16] MEDS: insulin glargine 100 units/1 mL 30 UNIT SUBCUT (20:26)
[2024-04-16 22:00] VITALS: BP 97/62; PULSE 80; RESP 18; TEMP 36.6; O2SAT 97
[2024-04-17 06:00] VITALS: BP 111/72; PULSE 68; RESP 18; TEMP 36.4; O2SAT 96
[2024-04-17] MEDS: nicotine 4 mg lozenge MUCOUS MEM (06:11)
[2024-04-17] MEDS: acetaminophen 325 mg Tablet 650 MG PO (06:27)
[2024-04-17 07:27] LABS: Glucose Point of Care 247 mg/dL (70-110)
[2024-04-17 07:30] VITALS: BP 111/72; PULSE 68; RESP 18; TEMP 36.4; O2SAT 96
[2024-04-17] MEDS: loratadine 10 mg Tablet PO (07:35)
[2024-04-17] MEDS: propranolol 20 mg Tablet 10 MG PO (07:36)
[2024-04-17] MEDS: pregabalin 100 mg Capsule PO (07:36)
[2024-04-17] MEDS: OXcarbazepine 300 mg Tablet PO (07:36)
[2024-04-17] MEDS: benztropine 1 mg Tablet 0.5 MG PO (07:36)
[2024-04-17] MEDS: cyclobenzaprine 10 mg Tablet 5 MG PO (07:37)
[2024-04-17] MEDS: pantoprazole DR 40 mg Tablet PO (07:37)
--- NOTE | 2024-04-17 07:55 | PC.NURSE ---
MEDICATION GIVEN EARLY DUE TO LEAVING THIS AM TO GO TO [facility]REF[facility]. PT LEFT AT 0748 WITH [facility] WITH ALL BELONGINGS AND ALL MEDICATIONS.
[2024-04-18 15:30] LABS: Anti-Double Strand DNA AB <1 IU/mL; Jo-1 Antibody <1.0 NEG AI (<1.0 NEG); SM/RNP Antibodies <1.0 NEG AI (<1.0 NEG); SS-B/LA IGG <1.0 NEG AI (<1.0 NEG); Scleroderma Ab(Scl-70) Ab <1.0 NEG AI (<1.0 NEG); Ss-A/Ro Igg <1.0 NEG AI (<1.0 NEG)
== END 2024-04-17 07:48 | disposition home or self-care (01) | DRG 885 ==
LOC: ER 21:19 → NP 21:57
PROVIDERS: Student in an Organized Health Care Education/Training Program; Admitting Provider Psychiatry & Neurology Psychiatry; Emergency Provider Emergency Medicine; Visit Provider Psychiatry & Neurology Psychiatry
DX: F33.9 Major depressive disorder, recurrent, unspecified (principal); F11.20 Opioid dependence, uncomplicated; R45.851 Suicidal ideations; F43.10 Post-traumatic stress disorder, unspecified; F10.20 Alcohol dependence, uncomplicated; E66.9 Obesity, unspecified; Z68.36 Body mass index [BMI] 36.0-36.9, adult; E10.40 Type 1 diabetes mellitus with diabetic neuropathy, unspecified; K21.9 Gastro-esophageal reflux disease without esophagitis; J44.9 Chronic obstructive pulmonary disease, unspecified; Z81.8 Family history of other mental and behavioral disorders; E10.649 Type 1 diabetes mellitus with hypoglycemia without coma; F29 Unspecified psychosis not due to a substance or known physiological condition
CPT/HCPCS: 36415; 36416; 80053; 80306; 80307; 81001; 81025; 82962; 83036; 83540; 83550; 85025; 86225; 86235; 87486; 87581; 87633; 90471; 90686; 90732; 94640; 96372; 97150; 97165; 99285; J1815; J7613; Q0162

== ENCOUNTER 2024-07-08 20:58 | Inpatient (IN) | payer BC, MEDICAID, SELFPAY ==
[2024-07-08 21:01] VITALS: BP 126/80; PULSE 98; RESP 18; TEMP 35.8; O2SAT 95; BMI 41.5
[2024-07-08 21:18] LABS: Bilirubin Urine Negative (Negative); Blood Urine 2+ (Negative); Glucose Urine UA Trace (Normal); Ketones Urine Negative (Negative); Leukocyte Esterase Urine 1+ (Negative); Nitrate Urine Negative (Negative); Protein Urine Negative (Negative); Specific Gravity, Urine 1.016 (1.005-1.030); Urine Appearance Clear (CLEAR); Urine Color Yellow (Yellow); Urobilinogen Urine 0.2 mg/dL (Negative); pH Urine 5.5 (5-7)
[2024-07-08 21:22] LABS: Bacteria Urine None Seen /hpf; Hyaline Casts Urine 0-4 /lpf; RBC Urine 0-2 /hpf (0-2); Squamous Epithelial Cell Urine 0-5 /hpf (0-5); WBC Urine 0-5 /hpf (0-5)
[2024-07-08 21:26] LABS: Amphetamines Screen Urine Negative (Negative); Barbiturates Screen Urine Negative (Negative); Benzodiazepines Screen Urine Negative (Negative); Cocaine Screen Urine Negative (Negative); Opiate Screen Urine Negative (Negative); PCP Screen Urine Negative (Negative); THC Screen Urine Negative (Negative)
[2024-07-08 21:37] LABS: HCG Qualitative Urine. Negative (Negative)
[2024-07-08 21:52] LABS: Basophils # 0.1 10^3/uL (0.0-0.1); Basophils % 0.9 %; Eosinophils # 0.2 10^3/uL (0.0-0.8); Eosinophils % 2.3 %; Hematocrit 33.9 % (36-47); Lymphocytes # 2.4 10^3/uL (0.8-4.8); Lymphocytes % 27.3 %; Mean Corpuscular HGB Conc 31.9 g/dL (30-55); Mean Corpuscular Hemoglobin 28.8 pg (27-33); Mean Corpuscular Volume 90.4 fl (85-98); Mean Platelet Volume 8.4 fL (7.4-10.4); Monocytes # 0.8 10^3/uL (0.2-0.9); Neutrophils # 5.33 10^3/uL (1.8-7.7); Neutrophils % 60.3 %; Nucleated Red Blood Cells % 0 %; Platelet Count 294 10^3/cmm (157-399); Red Blood Count 3.75 10^6/uL (3.85-5.65); Red Cell Distribution Width 13.7 % (12.1-15.1); White Blood Count 8.84 10^3/uL (3.29-11.43)
[2024-07-08 22:10] LABS: Estmated Average Glucose 212
[2024-07-08 22:23] LABS: Alanine Aminotransferase 20 U/L (0-33); Albumin Level 3.8 g/dL (3.5-5.2); Alkaline Phosphatase 116 U/L (35-105); Anion Gap 14.5 (5-19); Aspartate Amino Transferase 23 U/L (0-32); Blood Urea Nitrogen 8 mg/dL (6-20); Calcium 8.6 mg/dL (8.5-10.5); Carbon Dioxide 25 mmol/L (22-29); Chloride 97 mmol/L (98-107); Creatinine Clr Calc Pharmacy 184.0911; Globulin 2.6 g/dL (1.3-4.6); Glomerular Filtration Rate 135.3 mL/min (90-130); Glucose 178 mg/dL (65-115); Osmolality Calculated 277 mOsm/kg (285-295); Potassium 4.5 mmol/L (3.5-5.1); Sodium 132 mmol/L (136-145); Thyroid Stimulating Hormone 2.07 uIU/mL (0.27-4.20); Total Bilirubin 0.2 mg/dL (0.15-1.2); Total Protein 6.4 g/dL (6.6-8.7)
[2024-07-08 22:26] LABS: Acetaminophen < 5.0 ug/mL (10-30); Alcohol Level < 10 mg/dL (0-10); Salicylate < 0.3 mg/dL (3-10)
[2024-07-08 23:24] VITALS: BP 126/80; PULSE 98; RESP 18; O2SAT 95
[2024-07-08 23:43] VITALS: BP 137/90; PULSE 81; RESP 18; TEMP 37; O2SAT 99
[2024-07-08 23:49] VITALS: BP 137/90; PULSE 81; RESP 18; TEMP 37; O2SAT 99
--- NOTE | 2024-07-09 00:53 | W.ED.PSYCHS ---
HPI - Psych General: Chief Complaint: Psychiatric Symptoms Stated Complaint: SI Time Seen by Provider: 07/08/24 21:14 History of Present Illness: 44-year-old female with long history of major depressive disorder and PTSD. She presents with increasing depression, and some suicidal ideation. She is a type I diabetic, has had a bit trouble controlling her blood sugars as well. She is requesting neuropsychiatric evaluation and admission. She has had multiple admissions she says to facilities in the past. Related Data Home Medications ?Medication ?Instructions ?Recorded ?Confirmed buprenorphine 8 mg-naloxone 2 mg 4 film sublingual 2XD 07/09/24 07/09/24 sublingual film (Suboxone) bupropion HCl 300 mg 24 hr tablet, 300 mg PO 1XD 07/09/24 07/09/24 extended release cetirizine 10 mg tablet 10 mg PO 1XD PRN Allergic Symptoms 07/09/24 07/09/24 doxepin 50 mg capsule 50 mg PO 07/09/24 hydroxyzine pamoate 50 mg capsule 50 mg PO 3XD PRN Anxiety 07/09/24 07/09/24 insulin glargine 100 unit/mL (3 13 unit SUBCUT 1XD 07/09/24 07/09/24 mL) subcutaneous pen (Lantus Solostar U-100 Insulin) insulin lispro protamine-lispro 18 unit SUBCUT 3XD 07/09/24 07/09/24 100 unit/mL (75-25) subcutaneous pen omeprazole 40 mg capsule,delayed 40 mg PO 1XD 07/09/24 07/09/24 release oxcarbazepine 300 mg tablet 300 mg PO 2XD 07/09/24 07/09/24 prazosin 2 mg capsule 2 mg PO 1XD 07/09/24 07/09/24 propranolol 20 mg tablet 20 mg PO 3XD PRN Blood Pressure 07/09/24 07/09/24 triamcinolone acetonide 0.025 % 0.025 topical 3XD 07/09/24 topical ointment Allergies Allergy/AdvReac Type Severity Reaction Status Date / Time aripiprazole (From Abilify) Allergy Unknown Verified 07/08/24 21:11 butorphanol (From Stadol) Allergy Unknown Verified 07/08/24 21:11 prednisone Allergy Unknown Verified 07/08/24 21:11 Physical Exam Const: COMMON NORMALS: no acute distress GENERAL APPEARANCE: cooperative; not ill appearing and not frail appearing HENMT: COMMON NORMALS: normocephalic, atraumatic and Normal external nose present HEAD & SCALP: normocephalic and atraumatic FACE & SINUS: normal facial exam and face symmetric NOSE: Normal external nose present Eye: COMMON NORMALS: Equal, round and reactive pupils present and EOMs intact bilaterally PUPIL: Yes Equal, round and reactive pupils present Neck/C-Spine: GENERAL: Yes trachea midline Chest: CHEST: Yes Symmetrical chest wall rise Resp: COMMON NORMALS: normal respiratory effort, No retractions, No use of accessory muscles and clear to auscultation bilaterally AUSCULTATION: clear to auscultation bilaterally Cardio: COMMON NORMALS: regular rate and regular rhythm RATE: regular rate RHYTHM: regular rhythm GI: COMMON NORMALS: Normal to inspection, nondistended, normoactive bowel sounds present Extremity: COMMON NORMALS: no pedal edema Neuro: ROSENDA COMA SCALE: document GCS findings Chandler coma scale eye opening: Spontaneous Rosenda coma scale verbal response: Orientated Rosenda coma scale motor response: Obey commands Chandler coma scale total score: 15 SENSORY EXAM: Yes extremities (intact) Psych: COMMON NORMALS: speech normal SPEECH: Yes normal speech Skin: COMMON NORMALS: no rashes or lesions noted GENERAL SKIN EXAM: no rashes or lesions noted Course Vital Signs: Vital signs: Vital Signs Temperature 98.6 F 07/08/24 23:49 Pulse Rate 81 07/08/24 23:49 Respiratory Rate 18 07/08/24 23:49 Blood Pressure 137/90 07/08/24 23:49 Pulse Oximetry 99 07/08/24 23:49 Oxygen Delivery Me thod Room Air 07/08/24 23:49 MDM - Psych Medical Decision Making Patient's blood sugar is 178. Creatinine is 0.5. Bicarbonate is 25. Hemoglobin is 11. Vitals are stable here. She is requesting an PU admission. She does admit to suicidal ideation. Because of this, she will have to be placed under 96-hour hold. Spoke with psychiatry. They agree to admission. Medically, she is stable. She will be placed on sliding scale insulin for now. Lab Data 07/08/24 21:46 07/08/24 21:46 Laboratory Results WBC 8.84 10^3/uL (3.29-11.43) 07/08/24 21:46 RBC 3.75 10^6/uL (3.85-5.65) L 07/08/24 21:46 Hgb 10.80 g/dL (11.27-16.99) L 07/08/24 21:46 Hct 33.9 % (36-47) L 07/08/24 21:46 MCV 90.4 fl (85-98) 07/08/24 21:46 MCH 28.8 pg (27-33) 07/08/24 21:46 MCHC 31.9 g/dL (30-55) 07/08/24 21:46 RDW 13.7 % (12.1-15.1) 07/08/24 21:46 Plt Count 294 10^3/cmm (157-399) 07/08/24 21:46 MPV 8.4 fL (7.4-10.4) 07/08/24 21:46 Neut % (Auto) 60.3 % 07/08/24 21:46 Lymph % (Auto) 27.3 % 07/08/24 21:46 [place] % (Auto) 9.0 % 07/08/24 21:46 Eos % (Auto) 2.3 % 07/08/24 21:46 Baso % (Auto) 0.9 % 07/08/24 21:46 Neut # (Auto) 5.33 10^3/uL (1.8-7.7) 07/08/24 21:46 Lymph # (Auto) 2.4 10^3/uL (0.8-4.8) 07/08/24 21:46 [place] # (Auto) 0.8 10^3/uL (0.2-0.9) 07/08/24 21:46 Eos # (Auto) 0.2 10^3/uL (0.0-0.8) 07/08/24 21:46 Baso # (Auto) 0.1 10^3/uL (0.0-0.1) 07/08/24 21:46 Nucleated RBC % (auto) 0 % 07/08/24 21:46 Nucleated RBCs # 0.0 /100WBC 07/08/24 21:46 Sodium 132 mmol/L (136-145) L 07/08/24 21:46 Potassium 4.5 mmol/L (3.5-5.1) 07/08/24 21:46 Chloride 97 mmol/L (98-107) L 07/08/24 21:46 Carbon Dioxide 25 mmol/L (22-29) 07/08/24 21:46 Anion Gap 14.5 (5-19) 07/08/24 21:46 BUN 8 mg/dL (6-20) 07/08/24 21:46 Creatinine 0.5 mg/dL (0.5-0.9) 07/08/24 21:46 GFR Calculation 135.3 mL/min (90-130) H 07/08/24 21:46 Glucose 178 mg/dL (65-115) H 07/08/24 21:46 Estimat Average Glucose 212 07/08/24 21:46 Hemoglobin A1c 9.0 % (4.0-6.0) H 07/08/24 21:46 Calculated Osmolality 277 mOsm/kg (285-295) L 07/08/24 21:46 Calcium 8.6 mg/dL (8.5-10.5) 07/08/24 21:46 Total Bilirubin 0.2 mg/dL (0.15-1.2) 07/08/24 21:46 AST 23 U/L (0-32) 07/08/24 21:46 ALT 20 U/L (0-33) 07/08/24 21:46 Alkaline Phosphatase 116 U/L (35-105) H 07/08/24 21:46 Total Protein 6.4 g/dL (6.6-8.7) L 07/08/24 21:46 Albumin 3.8 g/dL (3.5-5.2) 07/08/24 21:46 Globulin 2.6 g/dL (1.3-4.6) 07/08/24 21:46 TSH 2.07 uIU/mL (0.27-4.20) 07/08/24 21:46 HCG, Qual Negative (Negative) 07/08/24 21:00 Urine Color Yellow (Yellow) 07/08/24 21:00 Urine Appearance Clear (CLEAR) 07/08/24 21:00 Urine pH 5.5 (5-7) 07/08/24 21:00 Ur Specific [place] 1.016 (1.005-1.030) 07/08/24 21:00 Urine Protein Negative (Negative) 07/08/24 21:00 Urine Glucose (UA) Trace (Normal) H 07/08/24 21:00 Urine Ketones Negative (Negative) 07/08/24 21:00 Urine Blood 2+ (Negative) A 07/08/24 21:00 Urine Nitrate Negative (Negative) 07/08/24 21:00 Urine Bilirubin Negative (Negative) 07/08/24 21:00 Urine Urobilinogen 0.2 mg/dL (Negative) 07/08/24 21:00 Ur Leukocyte Esterase 1+ (Negative) A 07/08/24 21:00 Urine RBC 0-2 /hpf (0-2) 07/08/24 21:00 Urine WBC 0-5 /hpf (0-5) 07/08/24 21:00 Ur Squamous Epith Cells 0-5 /hpf (0-5) 07/08/24 21:00 Amorphous Sediment Not Reportable 07/08/24 21:00 Urine Bacteria None seen /hpf (NONE) 07/08/24 21:00 Hyaline Casts 0-4 /lpf H 07/08/24 21:00 Salicylates < 0.3 mg/dL (3-10) L 07/08/24 21:46 Urine Opiates Screen Negative ng/mL (Negative) 07/08/24 21:00 Acetaminophen < 5.0 ug/mL (10-30) L 07/08/24 21:46 Ur Barbiturates Screen Negative ng/mL (Negative) 07/08/24 21:00 Ur Phencyclidine Scrn Negative ng/mL (Negative) 07/08/24 21:00 Ur Amphetamines Screen Negative ng/mL (Negative) 07/08/24 21:00 U Benzodiazepines Scrn Negative ng/mL (Negative) 07/08/24 21:00 Urine Cocaine Screen Negative ng/mL (Negative) 07/08/24 21:00 U Marijuana (THC) Screen Negative ng/mL (Negative) 07/08/24 21:00 Ethyl Alcohol < 10 mg/dL (0-10) 07/08/24 21:46 No radiology studies performed this visit Discharge Plan Discharge Patient Disposition: Admitted As Inpatient Admit Provider: Drew Velazquez Clinical Impression: Suicidal ideation, Depression Condition: Stable Coding Level of Care Code ED Manager Intensive Care Unit for [facility]
[2024-07-09] MEDS: trazodone 50 mg Tablet PO ×2 (01:11→21:27)
[2024-07-09] MEDS: hyDROXYzine 25 mg Capsule 50 MG PO ×2 (01:12→16:51)
--- NOTE | 2024-07-09 02:11 | PC.NURSE ---
admission note: Pt. was transferred from ER d/t SI/PTSD and placed on a 96 hr hold. Pt. states she has been living in a [facility] for the past 8 months, stated she was here @ [facility] in Mar she was @ [facility] in Dec, then @ [facility] after her stay at [facility], she was there for 45 days and completed the program. States she has been clean for the past 8 months and states she has not relapsed.
[2024-07-09] MEDS: acetaminophen 325 mg Tablet 650 MG PO ×4 (03:01→21:26)
[2024-07-09 06:00] VITALS: BP 147/87; PULSE 91; RESP 18; TEMP 36.8; O2SAT 97
[2024-07-09 06:45] LABS: Glucose Point of Care 265 mg/dL (70-110)
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
[2024-07-09] MEDS: insulin lispro 100 unit/1 mL SUBCUT ×3 (08:54→21:28)
[2024-07-09 11:51] LABS: Glucose Point of Care 93 mg/dL (70-110)
[2024-07-09 14:00] VITALS: BP 136/84; PULSE 83; RESP 17; O2SAT 96
[2024-07-09] MEDS: nicotine 21 mg Patch 1 PATCH TRANSDERMA (15:03)
[2024-07-09] MEDS: OLANZapine 5 mg ODT PO ×2 (15:03→21:31)
[2024-07-09 16:28] LABS: Glucose Point of Care 238 mg/dL (70-110)
[2024-07-09] MEDS: ibuprofen 600 mg Tablet PO (17:25)
[2024-07-09 19:51] LABS: Glucose Point of Care 211 mg/dL (70-110)
[2024-07-09 19:56] VITALS: BP 119/93; PULSE 84; RESP 18; TEMP 36.5; O2SAT 99
[2024-07-09] MEDS: insulin glargine 100 units/1 mL 13 UNIT (21:27)
[2024-07-09] MEDS: doxepin 50 mg Capsule PO (21:27)
[2024-07-09] MEDS: prazosin 1 mg Capsule 2 MG PO (21:27)
[2024-07-09] MEDS: buprenorphine-naloxone 4-1 mg Film 2 EACH SUBLINGUAL (22:19)
[2024-07-10] MEDS: ibuprofen 600 mg Tablet PO ×2 (03:20→13:17)
[2024-07-10 06:00] VITALS: BP 115/76; PULSE 97; RESP 18; TEMP 36.6; O2SAT 96
[2024-07-10] MEDS: OXcarbazepine 300 mg Tablet PO ×2 (08:11→17:44)
[2024-07-10] MEDS: insulin lispro 100 unit/1 mL SUBCUT ×3 (08:11→20:42)
[2024-07-10] MEDS: pantoprazole DR 40 mg Tablet PO (08:11)
[2024-07-10] MEDS: acetaminophen 325 mg Tablet 650 MG PO ×3 (08:17→20:41)
[2024-07-10] MEDS: OLANZapine 5 mg ODT PO ×3 (08:17→20:50)
[2024-07-10] MEDS: nicotine 21 mg Patch 1 PATCH TRANSDERMA (09:15)
[2024-07-10] MEDS: hyDROXYzine 25 mg Capsule 50 MG PO (13:17)
--- NOTE | 2024-07-10 13:19 | PC.NURSE ---
Vistaril Patient reports anxiety 11/26. Administered vistaril 50mg PO to patient.
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
[2024-07-10 14:00] VITALS: BP 137/84; PULSE 84; RESP 18; TEMP 36.4; O2SAT 96
--- NOTE | 2024-07-10 14:08 | PC.NURSE ---
Panic Patient reports that she is feeling panic, like she has an impending panic attack. Administered zyprexa 5mg ODT to patient
--- NOTE | 2024-07-10 14:36 | PC.NURSE ---
This nurse verified with staff at [facility] in [place] that patient was prescribed 38 units lantus at bedtime on 07/07/[address] Sarita Perez.
[2024-07-10] MEDS: buprenorphine-naloxone 4-1 mg Film 2 EACH SUBLINGUAL (14:59)
[2024-07-10] MEDS: triamcinolone 0.5% cream 15 gm 1 APPLIC TOPICAL (16:55)
[2024-07-10 19:51] VITALS: BP 105/67; PULSE 92; RESP 18; TEMP 36.8; O2SAT 94
[2024-07-10] MEDS: prazosin 1 mg Capsule 2 MG PO (20:41)
[2024-07-10] MEDS: insulin glargine 100 units/1 mL 38 UNIT SUBCUT (20:43)
[2024-07-10] MEDS: doxepin 50 mg Capsule PO (20:46)
[2024-07-11] MEDS: acetaminophen 325 mg Tablet 650 MG PO ×2 (02:27→17:16)
[2024-07-11 06:00] VITALS: BP 143/84; PULSE 94; RESP 18; TEMP 36.6; O2SAT 96
[2024-07-11] MEDS: OXcarbazepine 300 mg Tablet PO ×2 (08:13→17:16)
[2024-07-11] MEDS: insulin lispro 100 unit/1 mL SUBCUT ×4 (08:14→20:54)
[2024-07-11] MEDS: pantoprazole DR 40 mg Tablet PO (08:14)
[2024-07-11] MEDS: hyDROXYzine 25 mg Capsule 50 MG PO ×2 (08:14→20:55)
[2024-07-11] MEDS: ibuprofen 600 mg Tablet PO ×2 (08:14→20:56)
[2024-07-11] MEDS: buprenorphine-naloxone 4-1 mg Film 2 EACH SUBLINGUAL (08:16)
[2024-07-11] MEDS: nicotine 21 mg Patch 1 PATCH TRANSDERMA (08:24)
--- NOTE | 2024-07-11 09:23 | PC.NURSE ---
Morning assessment Patient reports anxiety during morning assessment. Patient reports that she is also having generalized, chronic body aches. Administered vistaril and ibuprofen for body aches and anxiety.
[2024-07-11] MEDS: OLANZapine 5 mg ODT PO ×3 (12:33→22:32)
[2024-07-11 14:00] VITALS: BP 122/75; PULSE 100; RESP 18; TEMP 36.7; O2SAT 91
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
[2024-07-11] MEDS: insulin glargine 100 units/1 mL 38 UNIT SUBCUT (17:23)
[2024-07-11] MEDS: triamcinolone 0.5% cream 15 gm 1 APPLIC TOPICAL (17:51)
[2024-07-11 19:57] VITALS: BP 127/94; PULSE 80; RESP 17; TEMP 36.8; O2SAT 98
[2024-07-11] MEDS: prazosin 1 mg Capsule 2 MG PO (20:55)
[2024-07-11] MEDS: trazodone 50 mg Tablet PO (20:55)
[2024-07-11] MEDS: doxepin 50 mg Capsule PO (20:55)
[2024-07-12] MEDS: acetaminophen 325 mg Tablet 650 MG PO ×4 (03:27→21:29)
[2024-07-12 06:00] VITALS: BP 89/56; PULSE 71; RESP 17; TEMP 36.7; O2SAT 95
--- NOTE | 2024-07-12 08:10 | PC.NURSE ---
Accu check not recording in patient chart. Patient's blood glucose was checked and was 310 before breakfast.
[2024-07-12] MEDS: insulin lispro 100 unit/1 mL SUBCUT ×4 (08:12→21:28)
[2024-07-12] MEDS: OXcarbazepine 300 mg Tablet PO ×2 (08:13→17:19)
[2024-07-12] MEDS: pantoprazole DR 40 mg Tablet PO (08:13)
[2024-07-12] MEDS: buprenorphine-naloxone 4-1 mg Film 2 EACH SUBLINGUAL (08:13)
[2024-07-12] MEDS: OLANZapine 5 mg ODT PO ×3 (08:26→21:30)
--- NOTE | 2024-07-12 11:11 | PC.NURSE ---
Nurse noticed that patient's name in [employer] did not match her name on her ID bracelet. Patient's ID bracelet read Andreea Gomez Nurse asked the patient to confirm her name. The patient stated that her maiden name had been Jason but was now Andreea Clemente. Nurse notified IT who said the medical records would be linked and that a new bracelet could be printed. A new bracelet stating Andreea Clemente was printed. The patient's ID bracelet and chart name now match. The patient's blood glucose was not flowing into [employer], Nurse notified IT who stated they would work on it. Nurse recorded blood glucose in nursing notes.
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
[2024-07-12 14:00] VITALS: BP 109/82; PULSE 97; RESP 18; TEMP 36.6; O2SAT 96
[2024-07-12] MEDS: nicotine 21 mg Patch 1 PATCH TRANSDERMA (15:01)
[2024-07-12] MEDS: ibuprofen 600 mg Tablet PO (17:18)
[2024-07-12] MEDS: hyDROXYzine 25 mg Capsule 50 MG PO (17:18)
[2024-07-12] MEDS: insulin glargine 100 units/1 mL 38 UNIT SUBCUT (17:19)
[2024-07-12 19:46] VITALS: BP 111/73; PULSE 86; RESP 17; TEMP 36.7; O2SAT 96
[2024-07-12] MEDS: doxepin 50 mg Capsule PO (21:29)
[2024-07-12] MEDS: trazodone 50 mg Tablet PO (21:30)
[2024-07-12] MEDS: prazosin 1 mg Capsule 2 MG PO (21:30)
[2024-07-13 06:00] VITALS: BP 97/60; PULSE 79; RESP 17; TEMP 36.4; O2SAT 97
[2024-07-13] MEDS: insulin lispro 100 unit/1 mL SUBCUT ×4 (08:01→21:36)
[2024-07-13] MEDS: pantoprazole DR 40 mg Tablet PO (08:01)
[2024-07-13] MEDS: buprenorphine-naloxone 4-1 mg Film 2 EACH SUBLINGUAL (08:01)
[2024-07-13] MEDS: OXcarbazepine 300 mg Tablet PO ×2 (08:01→17:19)
[2024-07-13] MEDS: acetaminophen 325 mg Tablet 650 MG PO ×2 (08:28→17:19)
[2024-07-13] MEDS: OLANZapine 5 mg ODT PO ×3 (08:28→21:36)
[2024-07-13] MEDS: ibuprofen 600 mg Tablet PO ×2 (12:18→21:35)
[2024-07-13] MEDS: hyDROXYzine 25 mg Capsule 50 MG PO ×2 (12:18→21:36)
[2024-07-13 14:00] VITALS: BP 108/71; PULSE 78; RESP 16; TEMP 37.1; O2SAT 96
[2024-07-13] MEDS: nicotine 21 mg Patch 1 PATCH TRANSDERMA (14:06)
[2024-07-13] MEDS: insulin glargine 100 units/1 mL 38 UNIT SUBCUT (17:21)
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
[2024-07-13 20:23] VITALS: BP 118/63; PULSE 83; RESP 18; TEMP 36.7; O2SAT 97
[2024-07-13] MEDS: trazodone 50 mg Tablet PO (21:36)
[2024-07-13] MEDS: prazosin 1 mg Capsule 2 MG PO (21:36)
[2024-07-13] MEDS: doxepin 50 mg Capsule PO (21:36)
[2024-07-14 06:00] VITALS: BP 98/57; PULSE 74; RESP 17; TEMP 36.3; O2SAT 95
[2024-07-14] MEDS: insulin lispro 100 unit/1 mL SUBCUT (08:03)
[2024-07-14] MEDS: OXcarbazepine 300 mg Tablet PO (08:18)
[2024-07-14] MEDS: OLANZapine 5 mg ODT PO (08:18)
[2024-07-14] MEDS: acetaminophen 325 mg Tablet 650 MG PO (08:18)
[2024-07-14] MEDS: buprenorphine-naloxone 4-1 mg Film 2 EACH SUBLINGUAL (08:19)
[2024-07-14] MEDS: pantoprazole DR 40 mg Tablet PO (08:19)
[2024-07-14] MEDS: nicotine 21 mg Patch 1 PATCH TRANSDERMA (08:30)
--- NOTE | 2024-07-14 09:11 | PC.NURSE ---
Pt was up to eat breakfast and then wanted to lay down and rest a while longer before her 10 am ride came to take her to [facility]. She rates her anxiety a 4/10 and denies depression at this time. She continues to rate her pain a 10/10 all over from neuropathy. She was given PRN tylenol. States that she slept well last night. Had a BM yesterday. Denies SI/HI. She does have a nicotine patch on that will need to be removed upon d/c as she states that she wants to smoke. No additional concerns at this time.
[2024-07-14 09:34] VITALS: BP 98/57; PULSE 74; RESP 17; TEMP 36.3; O2SAT 95
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
[2024-07-14 09:52] VITALS: BP 104/77; PULSE 82; RESP 17; TEMP 36.4; O2SAT 97
== END 2024-07-14 10:08 | disposition home or self-care (01) | DRG 885 ==
LOC: ER 21:23 → NP 23:22
PROVIDERS: Admitting Provider Psychiatry & Neurology Psychiatry; Emergency Provider Emergency Medicine; Visit Provider Psychiatry & Neurology Psychiatry
DX: F33.9 Major depressive disorder, recurrent, unspecified (principal); F11.20 Opioid dependence, uncomplicated; R45.851 Suicidal ideations; Z68.41 Body mass index [BMI] 40.0-44.9, adult; Z59.00 Homelessness unspecified; F43.10 Post-traumatic stress disorder, unspecified; F10.20 Alcohol dependence, uncomplicated; E66.01 Morbid (severe) obesity due to excess calories; E10.9 Type 1 diabetes mellitus without complications
CPT/HCPCS: 36415; 36416; 80053; 80306; 80307; 81001; 81025; 82962; 83036; 84443; 85025; 96372; 97150; 97165; 99285; J0573; J1815; J9999